=== PATIENT | female | born 1935 | race Two or more races ===

== ENCOUNTER 2020-08-23 11:06 | Inpatient (IN) | payer MEDICARE, MEDICAID ==
[2020-08-23] VITALS (7 sets, daily range): BP systolic 121–148; BP diastolic 46–66
[~2020-08-23] VITALS: Ht 160 cm; Wt 69.8 kg
[~2020-08-23 11:06] MED LIST: ATEN-60 PO; GLYB2.5T8 PO; LISI-275 PO; MECL25CH20 PO; TRAM50TA2 PO
[2020-08-23 11:45] LABS: Basophils # (auto) 0.1 10 ^3/uL (0-0.2); Basophils % (auto) 0.3 % (0.0-2.0); Eosinophils # (auto) 0 10 ^3/uL (0-0.8); Eosinophils % (auto) 0.2 % (0.0-7.0); Hematocrit 20.3 % (36.0-46.0); Lymphocytes % (auto) 9.8 % (10.0-50.0); Mean Corpuscular Hemoglobin 21.6 pg (28.0-32.0); Mean Corpuscular Hgb Conc. 31.2 g/dL (32.0-36.0); Mean Corpuscular Volume 69.3 fL (80.0-100.0); Monocytes # (auto) 1.2 10 ^3/uL (0-1.3); Monocytes % (auto) 5.8 % (0.0-12.0); Neutrophils # (auto) 16.9 10 ^3/uL (1.6-8.6); Neutrophils % (auto) 83.9 % (37.0-80.0); Platelet Count (auto) 189 10^3/uL (140-450); Red Blood Cells 2.93 10^6/uL (4.0-5.20); Red Cell Distribution Width 20.7 % (11.8-14.3); White Blood Cell 20.2 10^3/uL (4.4-10.8)
[2020-08-23 11:56] LABS: Hemoglobin 6.3 g/dL (12.2-16.2)
[2020-08-23 11:57] LABS: Albumin 1.8 g/dL (3.4-5.0); Anion Gap 12 (5-15); Blood Urea Nitrogen 40 mg/dL (7-18); Calcium 9.1 mg/dL (8.5-10.1); Carbon Dioxide 18 mmol/L (21-32); Chloride 105 mmol/L (98-107); Glucose 316 mg/dL (74-106); Potassium 4.5 mmol/L (3.5-5.1); Sodium 135 mmol/L (136-145)
[2020-08-23 12:09] LABS: Alanine Aminotransferase 9 U/L (13-56); Alkaline Phosphatase 98 U/L (45-117); Aspartate Aminotransferase 13 U/L (15-37); BUN/Creatinine Ratio 17.1; Bilirubin, Total 0.9 mg/dL (0.2-1.0); GFR African American 26 mL/min; GFR Non-African American 21 mL/min; Total Protein 7.2 g/dL (6.4-8.2)
[2020-08-23] MEDS ORDERED: SODIUM CHLORIDE 0.9% 1,000 ML IVB ONE (12:30)
[2020-08-23] MEDS ORDERED: cefTRIAXone 1GM/50ML D5W 50 ML IV ONE (12:30)
[2020-08-23] MEDS ORDERED: PANTOPRAZOLE 40 MG/10 ML VIAL INJ IV ONE (12:30)
[2020-08-23 13:47] LABS: Magnesium 1.7 mg/dL (1.6-2.6)
[2020-08-23 13:59] LABS: INR 1.39 (0.9-1.15); Partial Thromboplastin Time 29.3 sec (23.0-31.2)
[2020-08-23] MEDS ORDERED: CLINDAMYCIN 600MG IV 50 ML IV ONE (16:00)
[2020-08-23] MEDS ORDERED: MORPHINE SULF INJ 2 MG/ML SYRINGE 1ML IV PRN ×2 (16:45→17:00)
[2020-08-23] MEDS ORDERED: NITROGLYCERIN 0.4 MG SL TAB SL PRN (16:45)
[2020-08-23] MEDS ORDERED: LACTULOSE 20Gm/30ML SOLN PO PRN (17:00)
[2020-08-23] MEDS ORDERED: ONDANSETRON HCL 4 MG/2 ML VIAL IV PRN (17:00)
[2020-08-23] MEDS ORDERED: DEXTROSE (50%) 50ML SYRG IV PRN (17:00)
[2020-08-23] MEDS ORDERED: PIPERACILLIN-TAZOB 3.375GM 100 ML IV ONE (17:00)
[2020-08-23 17:17] LABS: Urine Bacteria NONE SEEN /hpf (None Seen); Urine Blood TRACE /uL (Negative); Urine Specific Gravity 1.011 (1.001-1.035); Urine WBC 60 /hpf (0 - 5); Urine WBC Clumps PRESENT /hpf (None Seen)
[2020-08-23] MEDS: SODIUM CHLORIDE 0.9% 1,000 ML IV SCH (17:36)
[2020-08-23] MEDS ORDERED: PNEUMOCOCCAL VACC POLYS 25 MCG/0.5 ML VIAL IM ONE (21:15)
[2020-08-23] MEDS ORDERED: PIPERACILLIN-TAZOB 3.375GM 100 ML IV SCH (22:00)
[2020-08-23] MEDS: ACCU-CHEK COMFORT CURVE STRIP VI SCH (22:40)
[2020-08-23] MEDS: InsuLIN REG 1unit/0.01ml Soln (100units/ml) SC SCH (22:47)
[2020-08-23] MEDS: PANTOPRAZOLE 40 MG/10 ML VIAL INJ IV SCH (22:48)
[2020-08-24] VITALS (7 sets, daily range): BP systolic 103–141; BP diastolic 42–70
[2020-08-24] MEDS: CLINDAMYCIN 600MG IV 50 ML IV SCH ×3 (00:25→15:51)
[2020-08-24] MEDS: ACCU-CHEK COMFORT CURVE STRIP VI SCH ×6 (00:25→21:52)
[2020-08-24] MEDS: InsuLIN REG 1unit/0.01ml Soln (100units/ml) SC SCH ×6 (00:36→20:30)
[2020-08-24] MEDS: SODIUM CHLORIDE 0.9% 1,000 ML IV SCH ×2 (04:05→13:00)
[2020-08-24] MEDS: PIPERACILLIN-TAZOB 2.25GM 50 ML IV SCH ×3 (05:28→21:53)
[2020-08-24 06:18] LABS: Neutrophils % (auto) 83.4 % (37.0-80.0)
[2020-08-24 06:19] LABS: Eosinophils # (auto) 0.1 10 ^3/uL (0-0.8); Red Blood Cells 4.09 10^6/uL (4.0-5.20)
[2020-08-24 06:22] LABS: Basophils # (auto) 0.1 10 ^3/uL (0-0.2); Basophils % (auto) 0.4 % (0.0-2.0); Eosinophils % (auto) 0.7 % (0.0-7.0); Hematocrit 30.2 % (36.0-46.0); Lymphocytes # (auto) 1.6 10 ^3/uL (0.4-5.4); Lymphocytes % (auto) 9.7 % (10.0-50.0); Mean Corpuscular Hemoglobin 24.5 pg (28.0-32.0); Mean Corpuscular Hgb Conc. 33.2 g/dL (32.0-36.0); Mean Corpuscular Volume 73.9 fL (80.0-100.0); Monocytes % (auto) 5.8 % (0.0-12.0); Neutrophils # (auto) 13.8 10 ^3/uL (1.6-8.6); Platelet Count (auto) 137 10^3/uL (140-450); White Blood Cell 16.6 10^3/uL (4.4-10.8)
[2020-08-24 06:32] LABS: INR 1.33 (0.9-1.15); Partial Thromboplastin Time 28.3 sec (23.0-31.2)
[2020-08-24 06:33] LABS: Albumin 1.7 g/dL (3.4-5.0); Anion Gap 7 (5-15); Blood Urea Nitrogen 32 mg/dL (7-18); Calcium 8.5 mg/dL (8.5-10.1); Carbon Dioxide 22 mmol/L (21-32); Chloride 112 mmol/L (98-107); Glucose 75 mg/dL (74-106); Potassium 3.8 mmol/L (3.5-5.1); Sodium 141 mmol/L (136-145)
[2020-08-24 06:37] LABS: Red Cell Distribution Width 22.1 % (11.8-14.3)
[2020-08-24 06:45] LABS: Alanine Aminotransferase 10 U/L (13-56); Alkaline Phosphatase 87 U/L (45-117); Aspartate Aminotransferase 18 U/L (15-37); BUN/Creatinine Ratio 17.3; Bilirubin, Total 0.7 mg/dL (0.2-1.0); GFR African American 33 mL/min; GFR Non-African American 28 mL/min; Total Protein 6.6 g/dL (6.4-8.2)
[2020-08-24] MEDS ORDERED: ceFAZolin 1GM VL ONE ×2 (09:08→09:38)
[2020-08-24] MEDS ORDERED: ONDANSETRON HCL 4 MG/2 ML VIAL IV PRN (09:15)
[2020-08-24] MEDS ORDERED: ePHEDrine SULFATE 50 MG/ML AMP IV PRN (09:15)
[2020-08-24] MEDS ORDERED: LABETALOL HCL 5 MG/ML 4ML SYRINGE IV PRN (09:15)
[2020-08-24] MEDS ORDERED: MIDAZOLAM HCL 1MG/1ML-2 ML VIAL IV PRN (09:15)
[2020-08-24] MEDS ORDERED: MORPHINE SULFATE 4 MG/ML SYR/VIAL IV PRN (09:15)
[2020-08-24] MEDS ORDERED: fentaNYL CITRATE 100 MCG/2 ML VL ONE (09:27)
[2020-08-24] MEDS ORDERED: MIDAZOLAM HCL 1MG/1ML-2 ML VIAL ONE (09:27)
[2020-08-24] MEDS ORDERED: DexAMETHasone SOD PHOS 10MG/1ML VIAL INJ ONE (09:33)
[2020-08-24] MEDS ORDERED: PROPOFOL 10 MG/ML 20 ML IV ONE (09:33)
[2020-08-24] MEDS ORDERED: ENOXAPARIN SOD 30 MG/0.3 ML SYRINGE SC SCH (10:00)
[2020-08-24] MEDS: PANTOPRAZOLE 40 MG/10 ML VIAL INJ IV SCH ×2 (10:00→21:53)
[2020-08-24 14:01] LABS: Hematocrit 29.1 % (36.0-46.0); Hemoglobin 9.7 g/dL (12.2-16.2)
[2020-08-25] MEDS: ACCU-CHEK COMFORT CURVE STRIP VI SCH ×7 (04:13→23:57)
[2020-08-25] MEDS: InsuLIN REG 1unit/0.01ml Soln (100units/ml) SC SCH ×6 (04:15→20:54)
[2020-08-25 05:00] VITALS: BP 100/48
[2020-08-25] MEDS: PIPERACILLIN-TAZOB 2.25GM 50 ML IV SCH ×4 (05:43→21:25)
[2020-08-25 07:12] LABS: Basophils # (auto) 0 10 ^3/uL (0-0.2); Eosinophils # (auto) 0 10 ^3/uL (0-0.8); Mean Corpuscular Hemoglobin 24.4 pg (28.0-32.0); Mean Corpuscular Hgb Conc. 32.6 g/dL (32.0-36.0); Monocytes # (auto) 0.3 10 ^3/uL (0-1.3); Neutrophils # (auto) 11.3 10 ^3/uL (1.6-8.6)
[2020-08-25 07:14] LABS: Basophils % (auto) 0.1 % (0.0-2.0); Hematocrit 28.6 % (36.0-46.0); Hemoglobin 9.3 g/dL (12.2-16.2); Lymphocytes # (auto) 1.5 10 ^3/uL (0.4-5.4); Lymphocytes % (auto) 11.4 % (10.0-50.0); Monocytes % (auto) 2.1 % (0.0-12.0); Neutrophils % (auto) 86.4 % (37.0-80.0); Platelet Count (auto) 139 10^3/uL (140-450); Red Blood Cells 3.81 10^6/uL (4.0-5.20); White Blood Cell 13.1 10^3/uL (4.4-10.8)
[2020-08-25 07:16] LABS: Red Cell Distribution Width 22.8 % (11.8-14.3)
[2020-08-25 07:31] LABS: BUN/Creatinine Ratio 22.1; Calcium 8.1 mg/dL (8.5-10.1)
[2020-08-25] MEDS: CLINDAMYCIN 600MG IV 50 ML IV SCH ×3 (08:00→15:36)
[2020-08-25 08:48] VITALS: BP 112/51
[2020-08-25] MEDS: SODIUM CHLORIDE 0.9% 1,000 ML IV SCH ×3 (09:00→18:40)
[2020-08-25] MEDS: PANTOPRAZOLE 40 MG/10 ML VIAL INJ IV SCH ×2 (10:43→21:25)
[2020-08-25] MEDS: MORPHINE SULF INJ 2 MG/ML SYRINGE 1ML IV PRN ×2 (11:57→21:25)
[2020-08-25 13:00] VITALS: BP 119/53
[2020-08-25 16:55] VITALS: BP 132/63
[2020-08-25 22:04] VITALS: BP 146/50
[2020-08-26] MEDS: InsuLIN REG 1unit/0.01ml Soln (100units/ml) SC SCH ×6 (00:08→20:16)
[2020-08-26] MEDS: CLINDAMYCIN 600MG IV 50 ML IV SCH ×2 (00:08→10:33)
[2020-08-26] MEDS: ACCU-CHEK COMFORT CURVE STRIP VI SCH ×5 (04:00→20:14)
[2020-08-26] MEDS: SODIUM CHLORIDE 0.9% 1,000 ML IV SCH ×2 (04:45→13:05)
[2020-08-26] MEDS: PIPERACILLIN-TAZOB 2.25GM 50 ML IV SCH ×3 (05:12→18:38)
[2020-08-26 05:18] VITALS: BP 113/53
[2020-08-26 06:01] LABS: Basophils # (auto) 0 10 ^3/uL (0-0.2); Eosinophils # (auto) 0.1 10 ^3/uL (0-0.8); Eosinophils % (auto) 0.3 % (0.0-7.0); Lymphocytes # (auto) 2.4 10 ^3/uL (0.4-5.4); Monocytes # (auto) 0.6 10 ^3/uL (0-1.3); Nucleated Red Blood Cells % 0.1 %
[2020-08-26 06:04] LABS: Basophils % (auto) 0.3 % (0.0-2.0); Hematocrit 29.4 % (36.0-46.0); Hemoglobin 9.8 g/dL (12.2-16.2); Lymphocytes % (auto) 16.1 % (10.0-50.0); Mean Corpuscular Hemoglobin 24.8 pg (28.0-32.0); Mean Corpuscular Hgb Conc. 33.1 g/dL (32.0-36.0); Monocytes % (auto) 3.9 % (0.0-12.0); Neutrophils % (auto) 79.4 % (37.0-80.0); Platelet Count (auto) 182 10^3/uL (140-450); Red Blood Cells 3.92 10^6/uL (4.0-5.20); White Blood Cell 15.2 10^3/uL (4.4-10.8)
[2020-08-26 06:17] LABS: BUN/Creatinine Ratio 23.9; Calcium 8.1 mg/dL (8.5-10.1); Potassium 3.7 mmol/L (3.5-5.1)
[2020-08-26 09:00] VITALS: BP 156/65
[2020-08-26] MEDS: PANTOPRAZOLE 40 MG/10 ML VIAL INJ IV SCH ×2 (10:33→21:57)
[2020-08-26 13:00] VITALS: BP 152/82
[2020-08-26] MEDS ORDERED: LEVO750T64 PO (14:10)
[2020-08-26] MEDS: MORPHINE SULF INJ 2 MG/ML SYRINGE 1ML IV PRN (14:11)
[2020-08-26 16:59] VITALS: BP 144/64
[2020-08-26 22:17] VITALS: BP 145/65
[2020-08-27] MEDS: ACCU-CHEK COMFORT CURVE STRIP VI SCH ×5 (00:10→16:00)
[2020-08-27] MEDS: PIPERACILLIN-TAZOB 2.25GM 50 ML IV SCH ×2 (00:11→05:30)
[2020-08-27] MEDS: InsuLIN REG 1unit/0.01ml Soln (100units/ml) SC SCH ×5 (00:12→16:00)
[2020-08-27] MEDS: SODIUM CHLORIDE 0.9% 1,000 ML IV SCH ×2 (00:19→10:44)
[2020-08-27 05:04] VITALS: BP 134/75
[2020-08-27 06:41] LABS: Basophils # (auto) 0 10 ^3/uL (0-0.2); Eosinophils # (auto) 0.3 10 ^3/uL (0-0.8); Hematocrit 30.4 % (36.0-46.0); Monocytes # (auto) 0.7 10 ^3/uL (0-1.3); White Blood Cell 11.4 10^3/uL (4.4-10.8)
[2020-08-27 06:43] LABS: Basophils % (auto) 0.3 % (0.0-2.0); Eosinophils % (auto) 2.6 % (0.0-7.0); Lymphocytes # (auto) 2.2 10 ^3/uL (0.4-5.4); Lymphocytes % (auto) 19.1 % (10.0-50.0); Mean Corpuscular Hemoglobin 24.7 pg (28.0-32.0); Mean Corpuscular Hgb Conc. 32.8 g/dL (32.0-36.0); Mean Corpuscular Volume 75.4 fL (80.0-100.0); Monocytes % (auto) 6.2 % (0.0-12.0); Neutrophils # (auto) 8.2 10 ^3/uL (1.6-8.6); Neutrophils % (auto) 71.8 % (37.0-80.0); Nucleated Red Blood Cells % 0.1 %; Platelet Count (auto) 172 10^3/uL (140-450); Red Blood Cells 4.03 10^6/uL (4.0-5.20)
[2020-08-27 06:56] LABS: BUN/Creatinine Ratio 22.2; Calcium 8.1 mg/dL (8.5-10.1); Potassium 3.7 mmol/L (3.5-5.1)
[2020-08-27 08:32] VITALS: BP 139/56
[2020-08-27] MEDS: PANTOPRAZOLE 40 MG/10 ML VIAL INJ IV SCH (09:18)
[2020-08-27] MEDS: MORPHINE SULF INJ 2 MG/ML SYRINGE 1ML IV PRN (09:35)
[2020-08-27 12:19] VITALS: BP 156/66
[2020-08-27 13:55] VITALS: BP 139/56
[2020-08-27] MEDS ORDERED: PIPERACILLIN-TAZOB 2.25GM 50 ML IV SCH (14:00)
== END 2020-08-27 17:10 | disposition home health service (06) | DRG 720 ==
LOC: ER 11:06 → TELE 16:42 → TELE-CENTR 20:00
PROVIDERS: ADMIT Internal Medicine; ATTEND Internal Medicine Pulmonary Disease
PROC: 30230N1 Transfusion of Nonautologous Red Blood Cells into Peripheral Vein, Open Approach (ICD-10-PCS; 2020-08-23)
PROC: 0H98XZZ Drainage of Buttock Skin, External Approach (ICD-10-PCS; principal; 2020-08-24 09:25)
DX: A41.9 Sepsis, unspecified organism (principal); N17.9 Acute kidney failure, unspecified; E44.0 Moderate protein-calorie malnutrition; E11.65 Type 2 diabetes mellitus with hyperglycemia; M32.9 Systemic lupus erythematosus, unspecified; R16.0 Hepatomegaly, not elsewhere classified; D62 Acute posthemorrhagic anemia; L02.31 Cutaneous abscess of buttock; Z20.822 Contact with and (suspected) exposure to COVID-19; E11.9 Type 2 diabetes mellitus without complications; B96.20 Unspecified Escherichia coli [E. coli] as the cause of diseases classified elsewhere; I10 Essential (primary) hypertension; N39.0 Urinary tract infection, site not specified; E66.9 Obesity, unspecified; Z88.6 Allergy status to analgesic agent; Z88.8 Allergy status to other drugs, medicaments and biological substances; Z28.29 Immunization not carried out because of patient decision for other reason; Z90.49 Acquired absence of other specified parts of digestive tract; Z83.3 Family history of diabetes mellitus; Z68.29 Body mass index [BMI] 29.0-29.9, adult; I70.8 Atherosclerosis of other arteries
CPT/HCPCS: 36415; 36430; 71045; 74176; 80048; 80053; 81001; 82270; 82378; 82962; 83036; 83605; 83690; 83735; 84484; 85014; 85018; 85025; 85045; 85610; 85652; 85730; 86141; 86850; 86900; 86901; 86920; 87040; 87070; 87075; 87077; 87086; 87186; 87205; 87426; 93005; 96365; 96375; C9113; G0378; J0690; J0696; J1100; J1815; J2250; J2543; J2704; J3490

== ENCOUNTER 2020-10-08 08:17 | Day surgery (SDC) | payer MEDICARE, MEDICAID ==
[2020-10-06 15:56] LABS: Eosinophils # (auto) 0.1 10 ^3/uL (0-0.8); Eosinophils % (auto) 1.7 % (0.0-7.0); Hemoglobin 10.8 g/dL (12.2-16.2); Monocytes # (auto) 0.4 10 ^3/uL (0-1.3)
[2020-10-06 15:57] LABS: Basophils # (auto) 0 10 ^3/uL (0-0.2); Basophils % (auto) 0.7 % (0.0-2.0); Hematocrit 31.6 % (36.0-46.0); Lymphocytes # (auto) 3.4 10 ^3/uL (0.4-5.4); Lymphocytes % (auto) 44.9 % (10.0-50.0); Mean Corpuscular Hemoglobin 27.4 pg (28.0-32.0); Mean Corpuscular Hgb Conc. 34.1 g/dL (32.0-36.0); Mean Corpuscular Volume 80.3 fL (80.0-100.0); Monocytes % (auto) 5.6 % (0.0-12.0); Neutrophils # (auto) 3.6 10 ^3/uL (1.6-8.6); Neutrophils % (auto) 47.1 % (37.0-80.0); Nucleated Red Blood Cells % 0.1 %; Platelet Count (auto) 73 10^3/uL (140-450); Red Blood Cells 3.94 10^6/uL (4.0-5.20); White Blood Cell 7.6 10^3/uL (4.4-10.8)
[2020-10-06 15:58] LABS: Red Cell Distribution Width 25.3 % (11.8-14.3)
[2020-10-06 16:10] LABS: INR 1.08 (0.9-1.15); Partial Thromboplastin Time 24.9 sec (23.0-31.2)
[~2020-10-08] VITALS: Ht 157.5 cm; Wt 68.0 kg
[~2020-10-08 08:17] MED LIST changes: -ATEN-60 PO; +ATOR20TA PO; +BENA20TA70 PO; -GLYB2.5T8 PO; +LEVO750T64 PO; +LINA5TAB PO; -LISI-275 PO; -MECL25CH20 PO; -TRAM50TA2 PO
[2020-10-08] MEDS ORDERED: SODIUM CHLORIDE LOCK 10 ML ONE (09:05)
[2020-10-08] MEDS ORDERED: LIDOCAINE VISCOUS 2% 15ML UD ONE (09:05)
[2020-10-08] MEDS ORDERED: diphenhdrAMINE HCL 50 MG/1 ML VL ONE (09:05)
[2020-10-08] MEDS: MIDAZOLAM HCL 5 MG/ML-1ML VIAL ONE ×2 (10:12→10:18)
[2020-10-08] MEDS: fentaNYL CITRATE 100 MCG/2 ML VL ONE ×2 (10:12→10:18)
[2020-10-08 11:30] VITALS: BP 134/41
== END 2020-10-08 11:45 | disposition home or self-care (01) ==
LOC: GI 08:17
PROVIDERS: ATTEND Internal Medicine Gastroenterology
DX: K92.1 Melena (principal); K57.30 Diverticulosis of large intestine without perforation or abscess without bleeding; K64.8 Other hemorrhoids; K63.89 Other specified diseases of intestine; Z20.822 Contact with and (suspected) exposure to COVID-19; Z98.890 Other specified postprocedural states; Z79.899 Other long term (current) drug therapy; Z88.6 Allergy status to analgesic agent; Z88.8 Allergy status to other drugs, medicaments and biological substances
CPT/HCPCS: 36415; 43235; 45378; 85025; 85610; 85730; J1200; J2250; J3010; J7030; U0003; 99153; G0500

== ENCOUNTER 2022-03-01 12:03 | Emergency (ER) | payer MEDICARE, MEDICAID ==
[~2022-03-01] VITALS: Ht 167.6 cm; Wt 75.0 kg
[2022-03-01 12:53] VITALS: BP 118/51
[2022-03-01 12:58] LABS: Basophils # (auto) 0.1 10 ^3/uL (0-0.2); Eosinophils # (auto) 0.1 10 ^3/uL (0-0.8); Hemoglobin 10.7 g/dL (12.2-16.2); Mean Corpuscular Volume 80.6 fL (80.0-100.0)
[2022-03-01 13:00] LABS: Basophils % (auto) 0.8 % (0.0-2.0); Eosinophils % (auto) 1.7 % (0.0-7.0); Hematocrit 32.6 % (36.0-46.0); Lymphocytes # (auto) 2.3 10 ^3/uL (0.4-5.4); Lymphocytes % (auto) 26.4 % (10.0-50.0); Mean Corpuscular Hemoglobin 26.4 pg (28.0-32.0); Mean Corpuscular Hgb Conc. 32.8 g/dL (32.0-36.0); Monocytes # (auto) 0.5 10 ^3/uL (0-1.3); Monocytes % (auto) 5.4 % (0.0-12.0); Neutrophils # (auto) 5.6 10 ^3/uL (1.6-8.6); Neutrophils % (auto) 65.7 % (37.0-80.0); Nucleated Red Blood Cells % 0.1 %; Red Blood Cells 4.05 10^6/uL (4.0-5.20); Red Cell Distribution Width 18.5 % (11.8-14.3); White Blood Cell 8.6 10^3/uL (4.4-10.8)
[2022-03-01 13:22] LABS: Albumin 3.4 g/dL (3.4-5.0); Calcium 9.2 mg/dL (8.5-10.1); Potassium 3.6 mmol/L (3.5-5.1)
[2022-03-01 13:26] LABS: Bilirubin, Total 0.6 mg/dL (0.2-1.0); Total Protein 7.3 g/dL (6.4-8.2)
[2022-03-01 14:14] LABS: Urine Bacteria FEW /hpf (None Seen); Urine Blood Negative /uL (Negative); Urine Specific Gravity 1.011 (1.001-1.035); Urine WBC 22 /hpf (0 - 5)
[2022-03-01] MEDS ORDERED: cefTRIAXone 1GM/50ML D5W 50 ML IV ONE (14:45)
== END 2022-03-01 17:34 | disposition left against medical advice (07) ==
LOC: ER 12:03
DX: R42 Dizziness and giddiness (principal); N39.0 Urinary tract infection, site not specified; E11.65 Type 2 diabetes mellitus with hyperglycemia; I10 Essential (primary) hypertension; E78.5 Hyperlipidemia, unspecified; Z86.2 Personal history of diseases of the blood and blood-forming organs and certain disorders involving the immune mechanism; Z90.49 Acquired absence of other specified parts of digestive tract; Z79.899 Other long term (current) drug therapy; Z88.6 Allergy status to analgesic agent; Z88.8 Allergy status to other drugs, medicaments and biological substances
CPT/HCPCS: 36415; 70450; 80053; 81001; 85025; 86850; 86900; 86901; 93005

== ENCOUNTER 2022-10-14 10:26 | Emergency (ER) | payer MEDICARE, MEDICAID ==
[~2022-10-14] VITALS: Ht 162.6 cm; Wt 78.2 kg
[~2022-10-14 10:26] MED LIST changes: +BENA20TA12 PO; -BENA20TA70 PO; +LEVO750T40 PO; -LEVO750T64 PO
[2022-10-14 11:03] LABS: Basophils # (auto) 0.1 10 ^3/uL (0-0.2); Basophils % (auto) 0.7 % (0.0-2.0); Eosinophils # (auto) 0.5 10 ^3/uL (0-0.8); Eosinophils % (auto) 6.8 % (0.0-7.0); Hematocrit 28.7 % (36.0-46.0); Hemoglobin 9.6 g/dL (12.2-16.2); Lymphocytes # (auto) 1.3 10 ^3/uL (0.4-5.4); Lymphocytes % (auto) 17.9 % (10.0-50.0); Mean Corpuscular Hemoglobin 27.4 pg (28.0-32.0); Mean Corpuscular Hgb Conc. 33.5 g/dL (32.0-36.0); Mean Corpuscular Volume 81.7 fL (80.0-100.0); Monocytes # (auto) 0.6 10 ^3/uL (0-1.3); Monocytes % (auto) 8.3 % (0.0-12.0); Neutrophils # (auto) 4.7 10 ^3/uL (1.6-8.6); Neutrophils % (auto) 66.3 % (37.0-80.0); Nucleated Red Blood Cells % 0.1 %; Red Blood Cells 3.51 10^6/uL (4.0-5.20); Red Cell Distribution Width 15.6 % (11.8-14.3); White Blood Cell 7.1 10^3/uL (4.4-10.8)
[2022-10-14 11:35] LABS: Potassium 4.3 mmol/L (3.5-5.1)
[2022-10-14 11:49] LABS: Albumin 3.4 g/dL (3.4-5.0); BUN/Creatinine Ratio 21.9 (10.0-20.0); Bilirubin, Total 0.6 mg/dL (0.2-1.0); Calcium 8.8 mg/dL (8.5-10.1); Total Protein 6.6 g/dL (6.4-8.2)
[2022-10-14 12:26] LABS: Urine Bacteria FEW /hpf (None Seen); Urine Blood Negative /uL (Negative); Urine Specific Gravity 1.013 (1.001-1.035); Urine WBC 46 /hpf (0 - 5)
[2022-10-14] MEDS ORDERED: CEPH250C PO (15:46)
[2022-10-14 16:10] VITALS: BP 123/65
== END 2022-10-14 16:10 | disposition home or self-care (01) ==
LOC: ER 10:26
DX: N39.0 Urinary tract infection, site not specified (principal); N04.9 Nephrotic syndrome with unspecified morphologic changes; R60.9 Edema, unspecified; E11.9 Type 2 diabetes mellitus without complications; I10 Essential (primary) hypertension; Z88.6 Allergy status to analgesic agent; Z88.8 Allergy status to other drugs, medicaments and biological substances; Z79.899 Other long term (current) drug therapy; E78.5 Hyperlipidemia, unspecified; Z90.49 Acquired absence of other specified parts of digestive tract; Z98.890 Other specified postprocedural states
CPT/HCPCS: 36415; 71045; 74176; 80053; 81001; 82150; 83690; 84484; 85025

== ENCOUNTER 2024-03-17 16:33 | Inpatient (IN) | payer MEDICARE, MEDICAID ==
[~2024-03-17] VITALS: Ht 152.4 cm; Wt 75.5 kg
[~2024-03-17 16:33] MED LIST changes: +CEPH250C PO; +FURO40TA4 PO
--- NOTE | 2024-03-17 16:58 | ED.PDOC ---
Musculoskeletal HPI Comments 88y F who presents to the ED via EMS for chief complaint of fall injury. Per EMS, pt lives with family and was using restroom. 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 Pt states just as she stood up, her legs gave out on her and she fell to the ground and scraped her RLE on some tile that was piled up against the bathroom door that had been unevenly laid. Pt had no loss of consciousness and is [id number] which family states is baseline but has noted history of dementia/Alzheimer. EMS states pt has bleeding from RLE and sarah bandage was applied with bleeding controlled prior to ED arrival. EMS states pt had elevated blood pressure of 182/93 prior to ED arrival and Accu check read "HIGH." Pt otherwise is alert and oriented x 3 in the ED. Pt denies any other symptoms at this time. Chief Complaint: Fall Injury Time Seen by MD: 16:54 Primary Care Provider: JASON Emanuel Notes: Nurses Notes, Medications, Allergies Allergies: Coded Allergies: Aspirin (Unverified Allergy, Unknown, 08/23/20) Celecoxib (Verified Adverse Reaction, Severe, WEAKNESS, 04/05/11) Home Meds Active Scripts Cephalexin (KEFLEX CAPSULE) 250 Mg Cp, 1 CAP PO QID, #28 CAP Prov:KEELY LANG MD 10/14/22 Levofloxacin Hemihydrate (LEVOFLOXACIN) 750 Mg Tab, 1 TAB PO DAILY, #10 TAB Prov:EDWIN ZARAGOZA MD 08/26/20 Reported Medications Linagliptin Base (TRADJENTA) 5 Mg Tab, 5 MG PO DAILY, TAB 10/06/20 Atorvastatin Calcium (Lipitor) 20 Mg Tab, 20 MG PO DAILY, TAB 10/06/20 Benazepril & Hydrochlorothiazi (Benazepril Hcl/Hydrochlor) 1 Tab Tab, 1 TAB PO DAILY, TAB 10/06/20 Information Source: Patient, Emergency Med Personnel Mode of Arrival: EMS Brought in by: EMS Location: Right Extremity Location: Leg Timing: Minutes, Hours Prehospital treatment: None Severity: Moderate Able to Move Extremity: No Bear Weight: Limited Pain: Moderate Mechanism: Spontaneous Circumstances: Fall Onset of Symptoms: Spontaneous Symptoms: Swelling, Pain Last Tetanus: Unknown History of: Gout Associated signs and symptoms: Leg pain Past Medical History PAST MEDICAL HISTORY: Anemia, CKF, Dementia, DM, High Lipids, HTN Past Medical History (Other): gout Surgical History: Cholecystectomy, Hernia Repair ZOOLOGY PROFESSOR History: Denies all ZOOLOGY PROFESSOR Hx Family History Family History: Reviewed,noncontributory to illness Social History Smoker: Non-Smoker Alcohol: Denies ETOH Use Drugs: Denies Drug Use Lives In: Home Constitutional: denies: chills, diaphoresis, fatigue, fever, malaise, sweats, weakness, others EENTM: denies: blurred vision, double vision, ear bleeding, ear discharge, ear drainage, ear pain, ear ringing, eye pain, eye redness, hearing loss, mouth pain, mouth swelling, nasal discharge, nose bleeding, nose congestion, nose pain, photophobia, tearing, throat pain, throat swelling, voice changes, others Respiratory: denies: cough, hemoptysis, orthopnea, SOB at rest, shortness of breath, SOB with excertion, stridor, wheezing, others Cardiovascular: denies: chest pain, dizzy spells, diaphoresis, Dyspnea on exertion, edema, irregular heart beat, left arm pain, lightheadedness, palpitations, PND, syncope, others Gastrointestinal: denies: abdomen distended, abdominal pain, blood streaked bowels, constipated, diarrhea, dysphagia, difficulty swallowing, hematemesis, melena, nausea, poor appetite, poor fluid intake, rectal bleeding, rectal pain, vomiting, others Genitourinary: denies: abnormal vagina bleeding, burning, dyspareunia, dysuria, flank pain, frequency, hematuria, incontinence, pain, , vagina discharge, urgency, others Neurological: denies: dizziness, fainting, headache, left sided numbness, left sided weakness, numbness, paresthesia, pre-existing deficit, right sided numbness, right sided weakness, seizure, speech problems, tingling, tremors, weakness, others Musculoskeletal: denies: back pain, gout, joint pain, joint swelling, muscle pain, muscle stiffness, neck pain, others Integumetry: reports: laceration (RLE); denies: bruises, change in color, change in hair/nails, dryness, lesions, lumps, rash, wounds, others Allergic/Immunocompromised: denies: Difficulty Healing, Frequent Infections, Hives, Itching, others Hematologic/Lymphatic: denies: anemia, blood clots, easy bleeding, easy bruising, swollen glands, others Endocrine: denies: excessive hunger, excessive sweating, excessive thirst, excessive urination, flushing, intolerance to cold, intolerance to heat, unexplained weight gain, unexplained weight loss, others Psychiatric: denies: anxiety, bipolar disorder, depression, hopeless, panic disorder, schizophrenia, sleepless, suicidal, others All Other Systems: Reviewed and Negative Physical Exam General Appearance: Moderate Distress, Obese HEENT: Normal ENT Inspection, Pharynx Normal, TMs Normal Neck: Full Range of Motion, Non-Tender, Normal, Normal Inspection Respiratory: Chest Non-Tender, Lungs Clear, No Accessory Muscle Use, No Respiratory Distress, Normal Breath Sounds Cardiovascular: No Edema, No JVD, No Murmur, No Gallop, Normal Peripheral Pulses, Regular Rate/Rhythm Breast Exam: Deferred Gastrointestinal: No Organomegaly, Non Tender, No Pulsatile Mass, Normal Bowel Sounds, Soft Genitalia: Deferred Pelvic: Deferred Rectal: Deferred Extremities: No calf tenderness, Normal capillary refill, No pedal edema Musculoskeletal : Apperance: Normal Neurologic: crab butcher II-XII nml as Tested, Motor Weakness, Normal Affect, Normal Mood, No Sensory Deficits Cerebellar Function: Normal Reflexes: Normal Skin: Dry, Lacerations (Two 6 cm lacerations on the right leg to the anterior tib-fib region), Normal Color, Warm Lymphatic: No Adenopathy Was a procedure done? Was a procedure done?: Yes Sedation Sedation?: No Laceration Repair : Location Right anterior tib-fib region Length A total of 12 cm laceration divided into two separate lacerations Anesthetic: Lidocaine, With epi Laceration Repair Prep: Saline Laceration Repair Wound Comple: epidermis/dermis repair, layered repair (Two layer closure) Laceration Repair: Number of sutures (A total of 18 sutures), Layers Closed (Two layers), Size (4-0 Ethilon), Nylon, Vicryl (4-0 Vicryl), Simple, Bacitracin, Non-adherent gauze Informed consent obtained: No Risks, benefits, and alternati: No Differential Diagnosis EXT Differential Diagnosis: Fracture, Sprain, Dislocation, Laceration, Gout, DJD, C ontusion, Strain, Rheumatoid, Arthritis X-Ray, Labs, Meds, VS Vital Signs Date Time Temp Pulse Resp B/P (MAP) Pulse Ox O2 Delivery O2 Flow Rate FiO2 11/3/24 20:26 101 18 99 Room Air* 0 21 03/17/24 20:25 101 18 159/94 (115) 99 03/17/24 20:00 97 03/17/24 19:12 91 03/17/24 18:55 107 21 174/69 (104) 99 03/17/24 18:55 107 21 99 Room Air* 0 21 03/17/24 16:48 98.7 103 16 188/93 (124) 99 Lab Test 03/17/24 17:27 Range/Units White Blood Count 8.9 4.4-10.8 10^3/uL Red Blood Count 3.80 L 4.0-5.20 10^6/uL Hemoglobin 11.7 L 12.2-16.2 g/dL Hematocrit 35.6 L 36.0-46.0 % Mean Corpuscular Volume 93.7 80.0-100.0 fL Mean Corpuscular Hemoglobin 30.9 28.0-32.0 pg Mean Corpuscular Hemoglobin Concent 33.0 32.0-36.0 g/dL Red Cell Distribution Width 15.7 H 11.8-14.3 % Platelet Count 124 L 140-450 10^3/uL Mean Platelet Volume 9.4 6.9-10.8 fL Neutrophils (%) (Auto) 86.6 H 37.0-80.0 % Lymphocytes (%) (Auto) 8.4 L 10.0-50.0 % Monocytes (%) (Auto) 4.2 0.0-12.0 % Eosinophils (%) (Auto) 0.5 0.0-7.0 % Basophils (%) (Auto) 0.3 0.0-2.0 % Neutrophils # (Auto) 7.7 1.6-8.6 10 ^3/uL Lymphocytes # (Auto) 0.7 0.4-5.4 10 ^3/uL Monocytes # (Auto) 0.4 0-1.3 10 ^3/uL Eosinophils # (Auto) 0 0-0.8 10 ^3/uL Basophils # (Auto) 0 0-0.2 10 ^3/uL Nucleated Red Blood Cells 0.0 % Sodium Level 135 L 136-145 mmol/L Potassium Level 4.5 3.5-5.1 mmol/L Chloride Level 106 98-107 mmol/L Carbon Dioxide Level 19 L 20-31 mmol/L Anion Gap 10 5-15 Blood Urea Nitrogen 39 H 9-23 mg/dL Creatinine 2.52 H 0.550-1.02 mg/dL Glomerular Filtration Rate Calc 18 >90 mL/min BUN/Creatinine Ratio 15.5 10.0-20.0 Serum Glucose 695 *H 74-106 mg/dL Calcium Level 8.9 8.7-10.4 mg/dL Beta-Hydroxybutyric Acid 0.186 < 0.4 mmol/L Current Medications Medications (Trade) Dose Ordered Sig/Francoise Route Start Time Stop Time Status Last Admin Sodium Chloride 500 ml @ 500 mls/hr Q1H ONCE IV 03/17/24 17:00 03/17/24 17:59 DC 03/17/24 17:38 Insulin Human Regular (InsuLIN R) 5 units ONCE ONCE IV 03/17/24 17:00 03/17/24 17:01 DC 03/17/24 17:38 Cefazolin Sodium 50 ml @ 100 mls/hr ONCE ONCE IV 03/17/24 20:30 03/17/24 20:59 DC 03/17/24 20:47 Bacitracin 5 applic ONCE ONCE TOP 03/17/24 20:45 03/17/24 20:46 DC 03/17/24 20:47 The CBC is within normal limits The chemistry panel shows a BUN of 39 and creatinine of 2.52 The patient was glucose is 695 The patient had an IV Hep-Lock established in the patient was given 500 cc bolus of normal saline The patient was given regular insulin 5 units IV push Because of the patient's deep wounds as well as a history of diabetes, the patient was started on Ancef g IV piggyback Bacitracin was placed to the area and the patient is dressed in nonadherent dressings. The patient was being admitted at this time. Time of 1ST Reevaluation: 17:30 Reevaluation 1ST: Unchanged Patient Education/Counseling: Diagnosis, Treatment, Prognosis Family Education/Counseling: No Family Present Departure 1 Departure Time of Disposition: 21:05 Impression: Primary Impression: Hyperglycemia Additional Impressions: Laceration of right lower leg Qualified Codes: S81.811A - Laceration without foreign body, right lower leg, initial encounter History of fall Generalized weakness Disposition: ADMITTED INPATIENT Admit to: Med Surg Condition: Fair Critical Care Note Critical Care Time?: No Stability Stability form required: Yes Unstable for transfer: Telemetry monitoring (Telemetry monitoring required), ED Physician Assesment (Clinical assesment) Heart Score Heart Score: Heart Score Response (Comments) Value History N/A 0 EKG N/A 0 Age N/A 0 Risk Factors N/A 0 Troponin N/A 0 Total 0 I personally scribed for DAYNE LILLY MD ([email or web address]) on 03/17/24 at 16:58. Electronically submitted by Abdias White ([email or web address]). DAYNE LILLY MD Mar 17, 2024 16:58
[2024-03-17] MEDS: InsuLIN REG 1unit/0.01ml Soln (100units/ml) IV ONE (17:38)
[2024-03-17] MEDS: SODIUM CHLORIDE 0.9% 500 ML IV ONE (17:38)
[2024-03-17 17:45] LABS: Basophils # (auto) 0 10 ^3/uL (0-0.2); Basophils % (auto) 0.3 % (0.0-2.0); Eosinophils # (auto) 0 10 ^3/uL (0-0.8); Eosinophils % (auto) 0.5 % (0.0-7.0); Hematocrit 35.6 % (36.0-46.0); Hemoglobin 11.7 g/dL (12.2-16.2); Lymphocytes # (auto) 0.7 10 ^3/uL (0.4-5.4); Lymphocytes % (auto) 8.4 % (10.0-50.0); Mean Corpuscular Hemoglobin 30.9 pg (28.0-32.0); Mean Corpuscular Volume 93.7 fL (80.0-100.0); Monocytes # (auto) 0.4 10 ^3/uL (0-1.3); Monocytes % (auto) 4.2 % (0.0-12.0); Neutrophils # (auto) 7.7 10 ^3/uL (1.6-8.6); Neutrophils % (auto) 86.6 % (37.0-80.0); Platelet Count (auto) 124 10^3/uL (140-450); Red Cell Distribution Width 15.7 % (11.8-14.3); White Blood Cell 8.9 10^3/uL (4.4-10.8)
[2024-03-17 17:53] LABS: Chloride 106 mmol/L (98-107); Potassium 4.5 mmol/L (3.5-5.1); Sodium 135 mmol/L (136-145)
[2024-03-17 17:54] LABS: Anion Gap 10 (5-15); Calcium 8.9 mg/dL (8.7-10.4); Carbon Dioxide 19 mmol/L (20-31)
[2024-03-17 17:59] LABS: BUN/Creatinine Ratio 15.5 (10.0-20.0); Blood Urea Nitrogen 39 mg/dL (9-23)
[2024-03-17 18:04] LABS: Glucose 695 mg/dL (74-106)
[2024-03-17 18:55] VITALS: PULSE 107; RESP 21; O2SAT 99
[2024-03-17] MEDS: LIDOCAINE 1% (LOCAL ANESTH.) PF 5ml SDV ID ONE (19:46)
[2024-03-17] MEDS: LIDOCAINE W/ EPINEPHRINE 1% 20ML VIAL ONE (20:18)
[2024-03-17 20:26] VITALS: PULSE 101; RESP 18; O2SAT 99
[2024-03-17] MEDS: ceFAZolin 1GM/50ML 50 ML IV ONE (20:47)
[2024-03-17] MEDS: BACITRACIN TOP OINT 1 UD PKG TOP ONE (20:47)
[2024-03-17] MEDS ORDERED: ACETAMINOPHEN 325 MG TAB PO PRN (21:45)
[2024-03-17] MEDS ORDERED: MORPHINE SULFATE INJ 2 MG/ml SYRG IV PRN (21:45)
[2024-03-17] MEDS ORDERED: NITROGLYCERIN 0.4 MG SL TAB SL PRN (21:45)
[2024-03-17] MEDS ORDERED: DEXTROSE (50%) 50ML SYRG IV PRN (21:45)
[2024-03-17] MEDS ORDERED: ONDANSETRON HCL 4 MG/2 ML VIAL IV PRN (21:45)
--- NOTE | 2024-03-17 21:55 | DVHHPRES ---
History of Present Illness Resident Creating Document: LEONEL MCHUGH RESIDENT History of Present Illness This is a 88-year-old female with past medical history of hypertension, thrombocytopenia, hyperlipidemia, type 2 diabetes melitus, essential tremor on the right hand, wanted the the ED with a chief complaint of status post mechanical fall. And is accompanied with her daughter and according to the daughter she mentioned patient got up from the rest room using a wall as she stood up her leg gave out of her and she fell to the ground without any trauma to the head or lose of consciousness but has bleeding from right lower extremity and sarah bandage was applied with bleeding controlled prior to ED. A total of 12 cm laceration divided into two separate lacerations and a total of 18 suture is required to close the wound in 2 layers. Patient also complaining of bilateral leg swelling and tingling and numbness for last six-month and getting worse that prompted this visit. On admission patient's blood pressure was 182/93 and Blood sugar was 695. The patient denies chest pain, shortness of breath, cough, dizziness, diaphoresis, abdominal pain, nausea, vomiting or any change in bowel and bladder habit. Past Medical History Hypertension, thrombocytopenia, hyperlipidemia, essential tremor, type 2 vianey betes mellitus, peripheral neuropathy Past Surgical History Hernia surgery Family History: None Smoke: No ALCOHOL: none Drugs: None Lives: with Family Review of Systems Constitutional: Yes: Weakness; No: Fever, Chills, Sweats, Malaise, Other Eyes: No: Pain, Vision change, Conjunctivae inflammation, Eyelid inflammation, Other, Redness ENT: No: Ear pain, Ear discharge, Nose pain, Nose discharge, Nose congestion, Mouth pain, Mouth swelling, Throat pain, Throat swelling, Other Respiratory: No: Cough, Dry, Shortness of breath, SOB with excertion, Wheezing, Hemoptysis, Pleuritic Pain, Sputum, Wheezing, Other Cardiovascular: No: Chest Pain, Palpitations, Orthopnea, Paroxysmal Noc. Dyspnea, Edema, Lt Headedness, Other Gastrointestinal: No: Nausea, Vomiting, Abdominal Pain, Diarrhea, Constipation, Melena, Hematochezia, Other Genitourinary: Dysuria; No Frequency, No Incontinence, No Hematuria, No Retention, No Other Musculoskeletal: leg pain, foot pain; No: other, neck pain, shoulder pain, arm pain, back pain, hand pain Skin: No: Rash, Lesions, Jaundice, Bruising, Other Neurological: No: Weakness, Numbness, Incoordination, Change in speech, Confusion, Seizures, Other Allergies: Coded Allergies: Aspirin (Unverified Allergy, Unknown, 08/23/20) Celecoxib (Verified Adverse Reaction, Severe, WEAKNESS, 04/05/11) Medications Current Medications Medications Dose Ordered Sig/Francoise Route Start Time Stop Time Status Last Admin Dose Admin Sodium Chloride 10 ml Q8HR IV 03/17/24 22:00 Acetaminophen 325 mg Q4HP PRN PO 03/17/24 21:45 Acetaminophen/ Hydrocodone Bitart 1 tab Q4HP PRN PO 03/17/24 21:45 Ondansetron HCl 4 mg Q4HP PRN IV 03/17/24 21:45 Nitroglycerin 0.4 mg Q5MINP PRN SL 03/17/24 21:45 Morphine Sulfate 2 mg Q30M PRN IV 03/17/24 21:45 Diagnostic Test (Pha) 1 strip ACHS 03/17/24 22:00 Insulin Human Regular AC SC 03/18/24 07:00 Insulin Human Regular HS SC 03/17/24 22:00 Dextrose 50 ml UD PRN IV 03/17/24 21:45 Insulin Glargine 25 units QAM SC 03/18/24 07:00 Exam Vital Signs Vital Signs Date Time Temp Pulse Resp B/P (MAP) Pulse Ox O2 Delivery O2 Flow Rate FiO2 03/17/24 20:26 101 18 99 Room Air* 0 21 03/17/24 20:25 159/94 (115) 03/17/24 16:48 98.7 Exam Physical examination: General Appearance: Alert, Oriented X3, Cooperative, No acute distress HEENT: Atraumatic, PERRLA, EOMI, Mucous membrane moist/pink Respiratory: Clear to auscultation, Normal air movement Cardiovascular: Regular rate, Normal S1, Normal S2, No murmurs, no chest wall tenderness Abdominal: Normal bowel sounds, Soft, No tenderness, No hepatospenomegaly, No masses Extremities: Bilateral pedal edema 2+, big wound in the right lower extremity that required 18 stitches close the wound, few bruises bilaterally, No clubbing, No cyanosis, Normal pulses. Skin: No rashes, No breakdown, No significant lesion Neuro: Using walker, Normal speech, Strength at 5/5 X4 ext, Normal tone, Sensation intact, Psych/Mental Status: Mental status NL, Mood NL Labs/Xrays Labs Test 03/17/24 17:27 Range/Units White Blood Count 8.9 4.4-10.8 10^3/uL Red Blood Count 3.80 L 4.0-5.20 10^6/uL Hemoglobin 11.7 L 12.2-16.2 g/dL Hematocrit 35.6 L 36.0-46.0 % Mean Corpuscular Volume 93.7 80.0-100.0 fL Mean Corpuscular Hemoglobin 30.9 28.0-32.0 pg Mean Corpuscular Hemoglobin Concent 33.0 32.0-36.0 g/dL Red Cell Distribution Width 15.7 H 11.8-14.3 % Platelet Count 124 L 140-450 10^3/uL Mean Platelet Volume 9.4 6.9-10.8 fL Neutrophils (%) (Auto) 86.6 H 37.0-80.0 % Lymphocytes (%) (Auto) 8.4 L 10.0-50.0 % Monocytes (%) (Auto) 4.2 0.0-12.0 % Eosinophils (%) (Auto) 0.5 0.0-7.0 % Basophils (%) (Auto) 0.3 0.0-2.0 % Neutrophils # (Auto) 7.7 1.6-8.6 10 ^3/uL Lymphocytes # (Auto) 0.7 0.4-5.4 10 ^3/uL Monocytes # (Auto) 0.4 0-1.3 10 ^3/uL Eosinophils # (Auto) 0 0-0.8 10 ^3/uL Basophils # (Auto) 0 0-0.2 10 ^3/uL Nucleated Red Blood Cells 0.0 % Sodium Level 135 L 136-145 mmol/L Potassium Level 4.5 3.5-5.1 mmol/L Chloride Level 106 98-107 mmol/L Carbon Dioxide Level 19 L 20-31 mmol/L Anion Gap 10 5-15 Blood Urea Nitrogen 39 H 9-23 mg/dL Creatinine 2.52 H 0.550-1.02 mg/dL Glomerular Filtration Rate Calc 18 >90 mL/min BUN/Creatinine Ratio 15.5 10.0-20.0 Serum Glucose 695 *H 74-106 mg/dL Calcium Level 8.9 8.7-10.4 mg/dL Beta-Hydroxybutyric Acid 0.186 < 0.4 mmol/L Assessment/Plan Assessment/Plan Assessment and plan: # S/P mechanical fall without trauma to the head or loss of consciousness - Bleeding from right lower extremity and required 18 stiches to close the wound in 2 layers. - Ordered CT scan of the head without contrast, echo, TSH, B12 - Fall precaution in place - physical therapy # Erythema and swelling of the lower extremity, rule out DVT/cellulitis - Doppler scan of the lower limb excluded the possibility of the DVT - Ordered CT scan of the lower extremity. # Possible CHF rule out - Ordered chest x-ray and BNP # Acute complicated cystitis - UA is consistent with UTI - IV ceftriaxone 1 g daily - Ordered urine C/S # Uncontrolled type 2 diabetes mellitus - On admission blood sugar was 695 with normal anion gap - Started Lantus 25 units q.a.m. and aggressive sliding scale of insulin # Possible CKD stage 4 - U/S of the kidney - Strict I&O - Avoid nephrotoxic medication - Consulted nephrology # DVT prophylaxis - SCD Goal of care discussed with the patient for more than 20 minutes full code Plan of treatment discussed with Dr. Suarez Plan discussed with: Patient, Other My Orders Orders - LEONEL MCHUGH RESIDENT Procedure Category Date Status Time Admit ADMIT 03/17/24 Transmitted 21:37 Allergies GRACE 03/17/24 In Process 21:37 Code Status CODE 03/17/24 Transmitted 21:37 Sodium Chloride Lock PHA 03/17/24 In Process (Saline Lock Ns) 22:00 Oxygen Per Hour RT 03/17/24 Transmitted 21:37 Acetaminophen Tablet PHA 03/17/24 In Process (Tylenol Tablet) 21:45 Hydrocodone-Acet PHA 03/17/24 In Process 5/325mg Tab ([place] 21:45 Ondansetron Hcl PHA 03/17/24 In Process (Zofran) 21:45 Fall Risk Precautions GRACE 03/17/[address] 21:37 Pt Request For Service PT 03/17/24 Logged 21:37 Echo 2d Mode Cardiac US 03/17/24 Logged DOP 21:37 Nitroglycerin PHA 03/17/24 In Process Sublingual (Ntrostat 21:45 Morphine Sulfate PHA 03/17/24 In Process Injection 21:45 Oxygen By Nasal RT 03/17/24 Transmitted Cannula 21:37 Stat Ekg For Chest GRACE 03/17/24 In Process Pain 21:37 Notify Of Changes GRACE 03/17/24 In Process From Base 21:37 Esol Teacher Assistant For GRACE 03/17/24 In Process 24 Hours 21:37 Emergency Dysrhythmia GRACE 03/17/24 In Process Protocol 21:37 Rhythm Strips Once GRACE 03/17/24 In Process Every Shift 21:37 Bilat Lower Dvt US 03/17/24 Logged 21:37 Glucose Blood PHA 03/17/24 In Process (Accu-Chek Comfort 22:00 Insulin R (Human) PHA 03/18/24 In Process (Insulin R) 07:00 Insulin R (Human) PHA 03/17/24 In Process (Insulin R) 22:00 Dextrose 50% Syringe PHA 03/17/24 In Process 21:45 Insulin Lantus PHA 03/18/24 In Process (Glargine) (Lantus) 07:00 Urinalysis LAB 03/17/24 Logged 21:52 Hemoglobin A1c LAB 03/17/24 Transmitted 21:53 Thyroid Stimulating LAB 03/17/24 Transmitted Hormone 21:53 Vitamin B12 LAB 03/17/24 Transmitted 21:53 Vitamin D, 25-Hydroxy LAB 03/17/24 Transmitted 21:53 Chest Portable XY 03/17/24 Logged 21:53 B-Type Natriuretic LAB 03/17/24 Transmitted Peptide 21:53 Date of Service: Mar 17, 2024 Billing Provider: DOMINICK SUAREZ MD Common Visit Codes: [id number] INP/OBS CARE (HIGH) Secondary Visit Codes: [id number] CARE PLAN 30 MINUTES LEONEL MCHUGH RESIDENT Mar 17, 2024 21:55 DOMINICK SUAREZ MD Mar 19, 2024 09:29
[2024-03-17] MEDS: SODIUM CHLOR 0.9% PF (SALINE LOCK) 10ML VIAL/SYR IV SCH (21:56)
[2024-03-17] MEDS: ACCU-CHEK COMFORT CURVE STRIP VI SCH (22:03)
[2024-03-17] MEDS: InsuLIN REG 1unit/0.01ml Soln (100units/ml) SC SCH (22:07)
--- NOTE | 2024-03-17 22:30 | DVH ---
Bilateral lower extremity venous duplex Clinical History: To rule out DVT Comparison: None Technique: Duplex Doppler evaluation of the deep venous systems of both lower extremities from the common femora l veins to the popliteal veins including color Doppler and spectral/pulsed waveform analysis was perf ormed. Findings: RIGHT SIDE: The common femoral vein demonstrates appropriate compressibility and waveform variability. There is compressibility/patency of the great saphenous vein at the proximal thigh. The femoral vein demonstrates appropriate compressibility and waveform variability. The deep femoral vein demonstrates appropriate compressibility and waveform variability. The popliteal vein demonstrates appropriate compressibility and waveform variability. There is normal compressibility at the tibioperoneal trunk. LEFT SIDE: The common femoral vein demonstrates appropriate compressibility and waveform variability. There is compressibility/patency of the great saphenous vein at the proximal thigh. The femoral vein demonstrates appropriate compressibility and waveform variability. The deep femoral vein demonstrates appropriate compressibility and waveform variability. The popliteal vein demonstrates appropriate compressibility and waveform variability. There is normal compressibility at the tibioperoneal trunk. Impression: No right or left femoropopliteal venous thrombosis.
[2024-03-17 23:21] LABS: Urine Bacteria FEW /hpf (None Seen); Urine Blood 2+ /uL (Negative); Urine Clarity Turbid (Clear); Urine Color Light-Yellow (Yellow); Urine Protein, UAD 3+ (Negative); Urine Specific Gravity 1.021 (1.001-1.035); Urine Urobilinogen Normal (Negative); Urine WBC 97 /hpf (0 - 5)
--- NOTE | 2024-03-18 04:08 | DVH ---
INDICATION: Possible CKD. TECHNIQUE: Multiple real-time sonographic images of the kidneys and urinary bladder were obtained. COMPARISON: CT scan of the abdomen pelvis dated 10/14/2022 FINDINGS: The right kidney measures 9.7 cm in length. The right renal echotexture, contour and cortical thickn ess are within normal limits. No hydronephrosis or large masses/calculi are seen. Mild perinephric fr ee fluid. The left kidney measures 8.3 cm in length. The kidney is echogenic. No hydronephrosis or large [place] s/calculi are seen. There is a cyst in the lower pole measuring 2.2 x 2.7 x 2.4 cm. No echogenic intraluminal masses are seen in the bladder. No urinary bladder wall abnormality. Bilat eral ureteral jets are not visualized Prevoid residual measures 92.6 cc. IMPRESSION: 1. Left renal atrophy and echogenic kidney may reflect medical renal disease. No hydronephrosis. Left renal cyst measuring 2.7 cm. 2. Mild right perinephric free fluid of uncertain etiology. No right hydronephrosis. 3. Grossly unremarkable urinary bladder.
--- NOTE | 2024-03-18 06:09 | DVH ---
CHEST RADIOGRAPH Indication:chest pain Technique: Single frontal view of the chest was obtained Comparison: XY CHEST PORTABLE on DOS: 10/14/22 FINDINGS: Lines and Tubes: None Lungs: There is pulmonary congestion. Pleura: No effusion. No pneumothorax. Cardiomediastinal contours: Unremarkable Bones: No acute osseous abnormality. IMPRESSION: 1. Pulmonary congestion.
[2024-03-18] MEDS: INSULIN LANTUS (GLARGINE) 1 /0.01ml (100units/ml) SC SCH (07:00)
[2024-03-18] MEDS: InsuLIN REG 1unit/0.01ml Soln (100units/ml) SC SCH (07:02)
--- NOTE | 2024-03-18 07:28 | DVH ---
EXAM: CT HEAD WITHOUT CONTRAST HISTORY: s/p mechanical fall COMPARISON: HEAD WITHOUT CONTRAST on DOS: 03/01/22 TECHNIQUE: Axial images were obtained and reformatted in coronal and sagittal planes. All CT scans at this medical facility are performed using dose modulation techniques as appropriate t o a performed exam including the following: Automated exposure control was utilized; adjustment of th e MA and/or KV according to patient size; and use of iterative reconstruction technique. CT Dose: CTDI volume is 55.84 mGy. Dose-length product is 988.72 mGy*cm FINDINGS: There is no evidence of acute intracranial hemorrhage, mass, mass effect midline shift. There is no h ydrocephalus or extra-axial fluid collection. There is age concordant parenchymal atrophy. There are patchy chronic small-vessel ischemic changes in the supratentorial white matter. Barcenas-white matter di fferentiation appears maintained. The visualized paranasal sinuses and mastoid air cells are clear. The calvarium is intact. IMPRESSION: 1. No acute intracranial process. HS:Y
[2024-03-18 08:16] VITALS: PULSE 86; RESP 14; O2SAT 98
[2024-03-18 09:05] LABS: Basophils # (auto) 0.1 10 ^3/uL (0-0.2); Basophils % (auto) 0.7 % (0.0-2.0); Eosinophils # (auto) 0.1 10 ^3/uL (0-0.8); Eosinophils % (auto) 0.7 % (0.0-7.0); Hematocrit 28.9 % (36.0-46.0); Hemoglobin 9.6 g/dL (12.2-16.2); Lymphocytes # (auto) 1.6 10 ^3/uL (0.4-5.4); Lymphocytes % (auto) 18.5 % (10.0-50.0); Mean Corpuscular Hemoglobin 30.9 pg (28.0-32.0); Mean Corpuscular Hgb Conc. 33.3 g/dL (32.0-36.0); Mean Corpuscular Volume 92.9 fL (80.0-100.0); Monocytes # (auto) 0.8 10 ^3/uL (0-1.3); Monocytes % (auto) 8.9 % (0.0-12.0); Neutrophils # (auto) 6.3 10 ^3/uL (1.6-8.6); Neutrophils % (auto) 71.2 % (37.0-80.0); Nucleated Red Blood Cells % 0.1 %; Platelet Count (auto) 104 10^3/uL (140-450); Red Blood Cells 3.11 10^6/uL (4.0-5.20); Red Cell Distribution Width 15.3 % (11.8-14.3); White Blood Cell 8.9 10^3/uL (4.4-10.8)
[2024-03-18] MEDS: cefTRIAXone 1GM/50ML D5W 50 ML IV SCH (09:09)
[2024-03-18 09:15] LABS: Alanine Aminotransferase 27 U/L (7-40); Albumin 2.9 g/dL (3.2-4.8); Alkaline Phosphatase 116 U/L (46-116); Anion Gap 10 (5-15); Aspartate Aminotransferase 33 U/L (13-40); BUN/Creatinine Ratio 15.5 (10.0-20.0); Blood Urea Nitrogen 36 mg/dL (9-23); Calcium 8.9 mg/dL (8.7-10.4); Carbon Dioxide 20 mmol/L (20-31); Chloride 112 mmol/L (98-107); Glucose 274 mg/dL (74-106); Potassium 4.1 mmol/L (3.5-5.1); Sodium 142 mmol/L (136-145)
[2024-03-18 09:16] LABS: Bilirubin, Total 0.5 mg/dL (0.2-1.0); Phosphorus 2.6 mg/dL (2.4-5.1); Total Protein 4.8 g/dL (5.7-8.2)
[2024-03-18 09:29] LABS: Creatinine, Urine 44.48 mg/dL (30.0-125.0)
[2024-03-18 09:31] LABS: Creatinine, Urine 44.71 mg/dL (30.0-125.0)
[2024-03-18 09:32] LABS: Protein, Urine 359.5 mg/dL (1-14); Urine Protein/Creatinine Ratio 8.08
--- NOTE | 2024-03-18 11:47 | DVHCONRES ---
Date Seen: Mar 18, 2024 Resident Creating Document: JHAJJ,SARPUNEET RESIDENT Referring Physician MD Cassandra Reason for Consultation Possible CKD stage 4 History of Present Illness Patient is a 88-year-old female with a past medical history of hypertension, type 2 diabetes mellitus, chronic kidney disease, peripheral neuropathy was brought to the hospital after she was reported to fall in the restroom. Daughter reported that she was in the restroom and when she tried to stand up her leg gave out and she fell to the ground without hitting her head, no loss of consciousness but had bleeding from the right lower extremity. To laceration was noted on the right edwards which was sutured. Patient reported bilateral lower limb numbness and tingling with the last 6 months which has gotten worse over time. On admission patient's blood pressure 182/93 mmHg, blood sugar 695 mg/dl. Patient denied chest pain, shortness of breath, dizziness, diaphoresis, abdominal pain, nausea, vomiting, change in bowel bladder habits. Bilateral lower extremity Venous duplex showed no right or left femoropopliteal vein thrombosis. Chest x-ray shows pulmonary venous congestion and interstitial edema with suspected left sided pleural effusion Head CT without contrast showed no acute intracranial process Past Medical History hypertension, type 2 diabetes mellitus, chronic kidney disease, peripheral neur opathy Past Surgical History Hernia surgery Family History: Cardiovascular disease G8 MOTHER Diabetes mellitus G8 MOTHER G8 FATHER Social History Patient lives with family and denies smoking, alcohol, drug use Allergies: Coded Allergies: Aspirin (Unverified Allergy, Unknown, 08/23/20) Celecoxib (Verified Adverse Reaction, Severe, WEAKNESS, 04/05/11) Home Meds Active Scripts Cephalexin (KEFLEX CAPSULE) 250 Mg Cp, 1 CAP PO QID, #28 CAP Prov:KEELY LANG MD 10/14/22 Levofloxacin Hemihydrate (LEVOFLOXACIN) 750 Mg Tab, 1 TAB PO DAILY, #10 TAB Prov:EDWIN ZARAGOZA MD 08/26/20 Reported Medications Linagliptin Base (TRADJENTA) 5 Mg Tab, 5 MG PO DAILY, TAB 10/06/20 Atorvastatin Calcium (Lipitor) 20 Mg Tab, 20 MG PO DAILY, TAB 10/06/20 Benazepril & Hydrochlorothiazi (Benazepril Hcl/Hydrochlor) 1 Tab Tab, 1 TAB PO DAILY, TAB 10/06/20 Current Medications Current Medications Medications (Trade) Dose Ordered Sig/Francoise Route PRN Reason Start Time Stop Time Status Last Admin Sodium Chloride (Saline Lock Ns) 10 ml Q8HR IV 03/17/24 22:00 03/18/24 05:47 Acetaminophen (Tylenol Tablet) 325 mg Q4HP PRN PO MILD PAIN (1-3 PAIN SCALE) 03/17/24 21:45 Acetaminophen/ Hydrocodone Bitart ([place] 5/325MG Tab) 1 tab Q4HP PRN PO MODERATE PAIN (4-6 PAIN SCALE) 03/17/24 21:45 Ondansetron HCl (Zofran) 4 mg Q4HP PRN IV NAUSEA / VOMITING 03/17/24 21:45 Nitroglycerin (Ntrostat Sublingual) 0.4 mg Q5MINP PRN SL FOR CHEST PAIN 03/17/24 21:45 Morphine Sulfate 2 mg Q30M PRN IV FOR CHEST PAIN 03/17/24 21:45 Diagnostic Test (Pha) (Accu-Chek Comfort Curve T) 1 strip ACHS 03/17/24 22:00 03/18/24 11:43 Insulin Human Regular (InsuLIN R) AC SC 03/18/24 07:00 03/18/24 11:40 Insulin Human Regular (InsuLIN R) HS SC 03/17/24 22:00 03/17/24 22:07 Dextrose 50 ml UD PRN IV Blood Sugar LESS THAN 60 03/17/24 21:45 Insulin Glargine (Lantus) 25 units QAM SC 03/18/24 07:00 Ceftriaxone Sodium 50 ml @ 100 mls/hr DAILY@09 IV 03/18/24 09:00 03/18/24 09:09 Review of Systems Patient seen and examined at the bedside. Patient is alert and oriented to person and place but disoriented to time. Patient reports right lower extremity pain and bilateral feet tenderness. Patient's blood pressure 145/60 mmHg, heart rate 86 per minute regular, SpO2 98% on room air. Patient does not report any nausea or vomiting, abdominal pain, chest pain, shortness of breath. Vital Signs Vital Signs Date Time Temp Pulse Resp B/P (MAP) Pulse Ox O2 Delivery O2 Flow Rate FiO2 03/18/24 10:50 93 03/18/24 10:02 18 175/92 (119) 97 03/18/24 08:16 Room Air* 0 21 03/17/24 16:48 98.7 Physical Exam Physical Examination Gen - no pallor, no icterus, no cyanosis, no clubbing, no LAD, 1+ edema B/L . Skin - Patients skin is warm and dry.. HEENT - normocephalic, atraumatic, moist mucous membranes. Neck - full ROM, no LAD, no JVD Pulmonary - B/L vesicular breath sounds with mild left lower lobe crackles, no wheezing, no stridor. cardiovascular - normal S1,S2 heard. RUSB systolic murmur heard. peripheral pulses normal radial 2+, pedal 1+. capillary refill normal <2 secs. GI - soft abdomen without tenderness to palpation . no hepatospleenomegaly. Sebastian wel sounds + Neurological - Patient is A/O X 2 . Bilateral upper extremity strength 5/5, bilateral lower extremity strength 4/5, no facial droop, normal speech, no tremor, bilaterally decreased touch sensation in the lower extremities Labs/Diagnostic Data Labs Test 03/18/24 06:53 03/18/24 05:18 03/17/24 23:03 03/17/24 17:27 Range/Units POC Glucose 265 H 70-106 mg/dl White Blood Count 8.9 4.4-10.8 10^3/uL Red Blood Count 3.11 L 4.0-5.20 10^6/uL Hemoglobin 9.6 #L 12.2-16.2 g/dL Hematocrit 28.9 #L 36.0-46.0 % Mean Corpuscular Volume 92.9 80.0-100.0 fL Mean Corpuscular Hemoglobin 30.9 28.0-32.0 pg Mean Corpuscular Hemoglobin Concent 33.3 32.0-36.0 g/dL Red Cell Distribution Width 15.3 H 11.8-14.3 % Platelet Count 104 L 140-450 10^3/uL Mean Platelet Volume 9.5 6.9-10.8 fL Neutrophils (%) (Auto) 71.2 37.0-80.0 % Lymphocytes (%) (Auto) 18.5 10.0-50.0 % Monocytes (%) (Auto) 8.9 0.0-12.0 % Eosinophils (%) (Auto) 0.7 0.0-7.0 % Basophils (%) (Auto) 0.7 0.0-2.0 % Neutrophils # (Auto) 6.3 1.6-8.6 10 ^3/uL Lymphocytes # (Auto) 1.6 0.4-5.4 10 ^3/uL Monocytes # (Auto) 0.8 0-1.3 10 ^3/uL Eosinophils # (Auto) 0.1 0-0.8 10 ^3/uL Basophils # (Auto) 0.1 0-0.2 10 ^3/uL Nucleated Red Blood Cells 0.1 % Sodium Level 142 # 136-145 mmol/L Potassium Level 4.1 3.5-5.1 mmol/L Chloride Level 112 H 98-107 mmol/L Carbon Dioxide Level 20 20-31 mmol/L Anion Gap 10 5-15 Blood Urea Nitrogen 36 H 9-23 mg/dL Creatinine 2.32 H 0.550-1.02 mg/dL Glomerular Filtration Rate Calc 20 >90 mL/min BUN/Creatinine Ratio 15.5 10.0-20.0 Serum Glucose 274 H 74-106 mg/dL Hemoglobin A1c > 14.0 H <5.7 % A1C Calcium Level 8.9 8.7-10.4 mg/dL Phosphorus Level 2.6 2.4-5.1 mg/dL Total Bilirubin 0.5 0.2-1.0 mg/dL Aspartate Amino Transferase (AST) 33 13-40 U/L Alanine Aminotransferase (ALT) 27 7-40 U/L Alkaline Phosphatase 116 46-116 U/L B-Type Natriuretic Peptide 363.99 0-100 pg/mL Total Protein 4.8 L 5.7-8.2 g/dL Albumin 2.9 L 3.2-4.8 g/dL Vitamin B12 Level 1110 H 211-911 pg/mL Vitamin D 25-Hydroxy 36.2 30.0-100 ng/mL Thyroid Stimulating Hormone (TSH) 3.54 0.55-4.78 uIU/mL Parathyroid Hormone (Intact) 99.1 H 18.4-80.1 pg/mL Urine Color Light-yellow Yellow Urine Clarity Turbid H Clear Urine pH 6.0 5.0-9.0 Urine Specific [place] 1.021 1.001-1.035 Urine Protein 3+ H Negative Urine Ketones Negative Negative Urine Blood 2+ H Negative /uL Urine Nitrite Negative Negative Urine Bilirubin Negative Negative Urine Urobilinogen Normal Negative mg/dL Urine Leukocyte Esterase 2+ Negative /uL Urine RBC 7 0 - 4 /hpf Urine WBC 97 0 - 5 /hpf Urine Squamous Epithelial Cells Few <5 /hpf Urine Bacteria Few H None Seen /hpf Urine Creatinine 44.48 30.0-125.0 mg/dL Urine Protein/Creatinine Ratio 8.08 Urine Sodium 27 L 40-220 mmol/L Urine Glucose 4+ H Normal mg/dL Urine Total Protein 359.5 H 1-14 mg/dL Beta-Hydroxybutyric Acid 0.186 < 0.4 mmol/L Plan/Recommendation Assessment and plan # FARNAZ on CKD likely prerenal hemodynamically mediated - serum creatinine 2.52-> 2.32 - serum BUN 39-> 36 - GFR 20 - urine creatinine 44.71 - urine sodium 27 - urine total protein 359.5 mg/dL - FENa- 1% - CXR showing pulmonary congestion and interstitial edema with left lower pleural effusion - patient is started on furosemide 40 mg once daily - avoid nephrotoxic medication - strict I&O # 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 uncontrolled diabetes and diabetic nephropathy - patient's baseline GFR 20-25ml/min - urine total protein 359.5 mg/dL - urine glucose 4+ - renal ultrasound shows left renal atrophy with the lower left pole cyst measuring 2.7 cm - PTH elevated at 99.1 - HBA1c > 14% # uncontrolled diabetes mellitus with hyperglycemia - HbA1c > 14 %, blood glucose more than 500 with normal anion gap - patient was on insulin Lantus 25 units and aggressive ISS # UTI likely acute complicated cystitis # status post mechanical fall # possible CHF Goals of care discussed with the patient and the family for over 20 minutes. Full code Plan discussed with Dr. Tillman Plan discussed with: Patient, Daughter NIKOLAI ESCOBAR RESIDENT Mar 18, 2024 11:47
--- NOTE | 2024-03-18 13:34 | DVHPN2 ---
Reviewed: Care Plan, H&P, Labs, Medications, Previous Orders, Radiology Changes from previous H/P or p: No Changes Eyes: No Pain, No Vision change, No Conjunctivae inflammation, No Eyelid inflammation, No Other, No Redness ENT: No Ear pain, No Ear discharge, No Nose pain, No Nose discharge, No Nose congestion, No Mouth pain, No Mouth swelling, No Throat pain, No Throat swelling, No Other Cardiovascular: No Chest Pain, No Palpitations, No Orthopnea, No Paroxysmal Noc. Dyspnea, No Edema, No Lt Headedness, No Other Respiratory: No Cough, No Dry, No Shortness of breath, No SOB with excertion, No Wheezing, No Hemoptysis, No Pleuritic Pain, No Sputum, No Other Gastrointestinal: No Nausea, No Vomiting, No Abdominal Pain, No Diarrhea, No Constipation, No Melena, No Hematochezia, No Other Genitourinary: Dysuria; No Frequency, No Incontinence, No Hematuria, No Retention, No Other Musculoskeletal: No other, No neck pain, No shoulder pain, No arm pain, No back pain, No hand pain; leg pain, foot pain Skin: No Rash, No Lesions, No Jaundice, No Bruising, No Other Objective Vitals Vital Signs Date Time Temp Pulse Resp B/P (MAP) Pulse Ox O2 Delivery O2 Flow Rate FiO2 03/18/24 10:50 93 03/18/24 10:02 18 175/92 (119) 97 03/18/24 08:16 Room Air* 0 21 03/17/24 16:48 98.7 Intake/Output Intake and Output 03/18/24 07:00 Intake Total 550 ml Balance 550 ml Intake IV Total 550 ml Medications Current Medications Medications Dose Ordered Sig/Francoise Route Start Time Stop Time Status Last Admin Dose Admin Sodium Chloride 10 ml Q8HR IV 03/17/24 22:00 03/18/24 05:47 10 ML Acetaminophen 325 mg Q4HP PRN PO 03/17/24 21:45 Acetaminophen/ Hydrocodone Bitart 1 tab Q4HP PRN PO 03/17/24 21:45 Ondansetron HCl 4 mg Q4HP PRN IV 03/17/24 21:45 Nitroglycerin 0.4 mg Q5MINP PRN SL 03/17/24 21:45 Morphine Sulfate 2 mg Q30M PRN IV 03/17/24 21:45 Diagnostic Test (Pha) 1 strip ACHS 03/17/24 22:00 03/18/24 11:43 1 STRIP Insulin Human Regular AC SC 03/18/24 07:00 03/18/24 11:40 4 UNITS Insulin Human Regular HS SC 03/17/24 22:00 03/17/24 22:07 10 UNITS Dextrose 50 ml UD PRN IV 03/17/24 21:45 Insulin Glargine 25 units QAM SC 03/18/24 07:00 Ceftriaxone Sodium 50 ml @ 100 mls/hr DAILY@09 IV 03/18/24 09:00 03/18/24 09:09 100 MLS/HR Laboratory Results Laboratory Tests 03/18/24 05:18 Chemistry Test 03/17/24 17:27 03/18/24 05:18 Calcium Level 8.9 mg/dL (8.7-10.4) 8.9 mg/dL (8.7-10.4) Albumin 2.9 g/dL (3.2-4.8) L Phosphorus Level 2.6 mg/dL (2.4-5.1) Total Protein 4.8 g/dL (5.7-8.2) L Cardiac Markers Test 03/18/24 05:18 B-Type Natriuretic Peptide 363.99 pg/mL (0-100) LFT Test 03/18/24 05:18 Alanine Aminotransferase (ALT) 27 U/L (7-40) Alkaline Phosphatase 116 U/L (46-116) Aspartate Amino Transferase (AST) 33 U/L (13-40) Total Bilirubin 0.5 mg/dL (0.2-1.0) HgA1c, TSH Test 03/18/24 05:18 Hemoglobin A1c > 14.0 % A1C (<5.7) H Thyroid Stimulating Hormone (TSH) 3.54 uIU/mL (0.55-4.78) Urinalysis Test 03/17/24 23:03 Urine Color Light-yellow (Yellow) Urine Clarity Turbid (Clear) H Urine pH 6.0 (5.0-9.0) Urine Specific [place] 1.021 (1.001-1.035) Urine Protein 3+ (Negative) H Urine Ketones Negative (Negative) Urine Blood 2+ /uL (Negative) H Urine Nitrite Negative (Negative) Urine Bilirubin Negative (Negative) Urine Urobilinogen Normal mg/dL (Negative) Urine Leukocyte Esterase 2+ /uL (Negative) Urine RBC 7 /hpf (0 - 4) Urine WBC 97 /hpf (0 - 5) Urine Squamous Epithelial Cells Few /hpf (<5) Urine Bacteria Few /hpf (None Seen) H Urine Creatinine 44.48 mg/dL (30.0-125.0) Urine Protein/Creatinine Ratio 8.08 Urine Sodium 27 mmol/L (40-220) L Urine Glucose 4+ mg/dL (Normal) H Urine Total Protein 359.5 mg/dL (1-14) H Labs and/or images reviewed: Labs reviewed by me, Image(s) reviewed by me Assessment/Plan Assessment/Plan Sepsis secondary to urinary tract infection: Blood cultures urine cultures Rocephin FARNAZ on CKD: Nephrology consult appreciated CKD 4 Uncontrolled diabetes A1c more than 14: Diabetic education for insulin sliding scale Acute urinary tract infection Atrophic left kidney CT head negative DVT negative Status post mechanical fall without injury Possible Congestive heart failure Spent 65 minutes Patient is full code Advanced care planning time 25 minutes Plan discussed with: Patient Date of Service: Mar 18, 2024 Billing Provider: GAB MOLINA MD Common Visit Codes: [id number] CARE 30-74 MIN GAB MOLINA MD Mar 18, 2024 13:34
--- NOTE | 2024-03-18 16:42 | DVHSR ---
APPROVED REPORT EXAM: Two-dimensional and M-mode echocardiogram with Doppler and color Doppler. Blood Pressure: 138/63 mmHg INDICATION Chest Pain RISK FACTORS Height: 60, Weight: 154 DIMENSIONS LVDd4.1 (3.8-5.7cm)LA (2D)4.2 (1.9-4.0cm)Aortic Root3.2 (2.0-3.7cm) LVDs2.5 (2.5-4.0cm)LA (MM) (1.9-4.0cm)Aortic Cusp Exc1.4 (1.5-2.0cm) EF (%) 70.0 (55-70%)Rt. Atrium3.4 (1.9-4.0cm)Asc. Aorta cm Mitral Valve MitralMitral Stenosis E wave0.84m/sMV Mean GR.4mmHg A wave1.62m/sMV Peak GR.10mmHg E/A ratio0.52D MVAcm2 DECEL [id number] 1/2 Timems Aortic Valve Aortic ValveAortic Stenosis V11.11m/Sola Mean GR.9mmHg V22.08m/Sola Peak GR.17mmHg LVOT Diameter1.8 (1.8-2.4cm)Doppler AVA1.36cm2 Pulmonic Valve V21.22m/s Conclusion Normal left ventricular size and dimension. Normal left ventricular systolic function estimated ejec tion fraction 55%. There is a grade 1 diastolic dysfunction. Normal right ventricular size and dimension. Normal right ventricular systolic function. Normal biatrial size and dimension. There is mild aortic valve sclerosis. Normal mitral valve structure function. Normal tricuspid valve structure and function. The pulmonary valve is grossly normal. No pericardial effusion.
[2024-03-18] MEDS: FUROSEMIDE 40 MG/4 ML VIAL IV ONE (17:51)
[2024-03-18 18:35] VITALS: PULSE 99; RESP 17; O2SAT 100
[2024-03-18 20:00] VITALS: PULSE 95; RESP 18; O2SAT 96
[2024-03-18 21:00] VITALS: BP 173/61; PULSE 95; RESP 18; TEMP 98.2; O2SAT 96
[2024-03-18] MEDS: HYDROcodone-ACET 5/325MG TAB PO PRN (21:37)
[2024-03-18 23:00] VITALS: BP 135/63; PULSE 79
[2024-03-19 05:00] VITALS: BP 171/63; PULSE 93; RESP 17; TEMP 98.1; O2SAT 99
--- NOTE | 2024-03-19 07:14 | ECG ---
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
[2024-03-19 07:16] LABS: Basophils # (auto) 0 10 ^3/uL (0-0.2); Basophils % (auto) 0.4 % (0.0-2.0); Eosinophils # (auto) 0 10 ^3/uL (0-0.8); Eosinophils % (auto) 0.2 % (0.0-7.0); Hematocrit 27.9 % (36.0-46.0); Hemoglobin 9.3 g/dL (12.2-16.2); Lymphocytes # (auto) 1.4 10 ^3/uL (0.4-5.4); Lymphocytes % (auto) 15.4 % (10.0-50.0); Mean Corpuscular Hemoglobin 31.2 pg (28.0-32.0); Mean Corpuscular Hgb Conc. 33.4 g/dL (32.0-36.0); Mean Corpuscular Volume 93.4 fL (80.0-100.0); Monocytes # (auto) 0.7 10 ^3/uL (0-1.3); Monocytes % (auto) 7.3 % (0.0-12.0); Neutrophils % (auto) 76.7 % (37.0-80.0); Red Blood Cells 2.98 10^6/uL (4.0-5.20); Red Cell Distribution Width 15.3 % (11.8-14.3); White Blood Cell 9.1 10^3/uL (4.4-10.8)
[2024-03-19 07:31] LABS: Alanine Aminotransferase 19 U/L (7-40); Albumin 2.9 g/dL (3.2-4.8); Alkaline Phosphatase 101 U/L (46-116); Anion Gap 10 (5-15); Aspartate Aminotransferase 32 U/L (13-40); BUN/Creatinine Ratio 14.5 (10.0-20.0); Blood Urea Nitrogen 34 mg/dL (9-23); Calcium 8.9 mg/dL (8.7-10.4); Carbon Dioxide 19 mmol/L (20-31); Chloride 114 mmol/L (98-107); Glucose 141 mg/dL (74-106); Potassium 4.3 mmol/L (3.5-5.1); Sodium 143 mmol/L (136-145)
[2024-03-19 07:32] LABS: Bilirubin, Total 0.6 mg/dL (0.2-1.0); Total Protein 4.7 g/dL (5.7-8.2)
[2024-03-19 07:34] LABS: Platelet Count (auto) 93 10^3/uL (140-450)
[2024-03-19 08:00] VITALS: PULSE 78; RESP 16; O2SAT 98
[2024-03-19 09:00] VITALS: BP 140/51; PULSE 78; RESP 16; TEMP 97.7; O2SAT 98
--- NOTE | 2024-03-19 09:32 | DVHPN2 ---
Reviewed: Care Plan, H&P, Labs, Medications, Previous Orders, Radiology Changes from previous H/P or p: No Changes Eyes: No Pain, No Vision change, No Conjunctivae inflammation, No Eyelid inflammation, No Other, No Redness ENT: No Ear pain, No Ear discharge, No Nose pain, No Nose discharge, No Nose congestion, No Mouth pain, No Mouth swelling, No Throat pain, No Throat swelling, No Other Cardiovascular: No Chest Pain, No Palpitations, No Orthopnea, No Paroxysmal Noc. Dyspnea, No Edema, No Lt Headedness, No Other Respiratory: No Cough, No Dry, No Shortness of breath, No SOB with excertion, No Wheezing, No Hemoptysis, No Pleuritic Pain, No Sputum, No Other Gastrointestinal: No Nausea, No Vomiting, No Abdominal Pain, No Diarrhea, No Constipation, No Melena, No Hematochezia, No Other Genitourinary: Dysuria; No Frequency, No Incontinence, No Hematuria, No Retention, No Other Musculoskeletal: No other, No neck pain, No shoulder pain, No arm pain, No back pain, No hand pain; leg pain, foot pain Skin: No Rash, No Lesions, No Jaundice, No Bruising, No Other Objective Vitals Vital Signs Date Time Temp Pulse Resp B/P (MAP) Pulse Ox O2 Delivery O2 Flow Rate FiO2 03/19/24 05:00 98.1 93 17 171/63 (99) 99 98.1 03/18/24 20:00 Room Air* 0 21 Intake/Output Intake and Output 03/19/24 07:00 Intake Total 150 ml Balance 150 ml Intake Oral 100 ml IV Total 50 ml # Voids 2 Medications Current Medications Medications Dose Ordered Sig/Francoise Route Start Time Stop Time Status Last Admin Dose Admin Sodium Chloride 10 ml Q8HR IV 03/17/24 22:00 03/19/24 05:53 10 ML Acetaminophen 325 mg Q4HP PRN PO 03/17/24 21:45 Acetaminophen/ Hydrocodone Bitart 1 tab Q4HP PRN PO 03/17/24 21:45 03/18/24 21:37 1 TAB Ondansetron HCl 4 mg Q4HP PRN IV 03/17/24 21:45 Nitroglycerin 0.4 mg Q5MINP PRN SL 03/17/24 21:45 Morphine Sulfate 2 mg Q30M PRN IV 03/17/24 21:45 Diagnostic Test (Pha) 1 strip ACHS 03/17/24 22:00 03/19/24 05:54 1 STRIP Insulin Human Regular AC SC 03/18/24 07:00 03/19/24 05:55 2 UNITS Insulin Human Regular HS SC 03/17/24 22:00 03/18/24 21:41 2 UNITS Dextrose 50 ml UD PRN IV 03/17/24 21:45 Insulin Glargine 25 units QAM SC 03/18/24 07:00 03/19/24 05:56 25 UNITS Ceftriaxone Sodium 50 ml @ 100 mls/hr DAILY@09 IV 03/18/24 09:00 03/18/24 09:09 100 MLS/HR Furosemide 40 mg DAILY IV 03/19/24 10:00 Laboratory Results Laboratory Tests 03/19/24 05:22 Chemistry Test 03/19/24 05:22 Albumin 2.9 g/dL (3.2-4.8) L Calcium Level 8.9 mg/dL (8.7-10.4) Total Protein 4.7 g/dL (5.7-8.2) L LFT Test 03/19/24 05:22 Alanine Aminotransferase (ALT) 19 U/L (7-40) Alkaline Phosphatase 101 U/L (46-116) Aspartate Amino Transferase (AST) 32 U/L (13-40) Total Bilirubin 0.6 mg/dL (0.2-1.0) Urinalysis Test 03/17/24 23:03 Urine Color Light-yellow (Yellow) Urine Clarity Turbid (Clear) H Urine pH 6.0 (5.0-9.0) Urine Specific [place] 1.021 (1.001-1.035) Urine Protein 3+ (Negative) H Urine Ketones Negative (Negative) Urine Blood 2+ /uL (Negative) H Urine Nitrite Negative (Negative) Urine Bilirubin Negative (Negative) Urine Urobilinogen Normal mg/dL (Negative) Urine Leukocyte Esterase 2+ /uL (Negative) Urine RBC 7 /hpf (0 - 4) Urine WBC 97 /hpf (0 - 5) Urine Squamous Epithelial Cells Few /hpf (<5) Urine Bacteria Few /hpf (None Seen) H Urine Creatinine 44.48 mg/dL (30.0-125.0) Urine Protein/Creatinine Ratio 8.08 Urine Sodium 27 mmol/L (40-220) L Urine Glucose 4+ mg/dL (Normal) H Urine Total Protein 359.5 mg/dL (1-14) H Labs and/or images reviewed: Labs reviewed by me, Image(s) reviewed by me Assessment/Plan Assessment/Plan Sepsis secondary to urinary tract infection: Blood cultures pending, urine cultures pending, continue Rocephin FARNAZ on CKD 4: Nephrology consult appreciated, patient refusing dialysis Uncontrolled diabetes A1c more than 14: Diabetic education , insulin sliding scale, per granddaughter Pat at bedside patient was never diagnosed with diabetes in the past, we will start her on metformin and Lantus Diabetic neuropathy nephropathy vasculopathy Acute urinary tract infection Atrophic left kidney CT head negative DVT negative Status post mechanical fall without injury Possible Congestive heart failure: Lasix cardiology consult, echo 55 % ejection fraction Time spent 65 minutes Patient is full code D-dimer ordered Plan discussed with: Patient My Orders Orders - GAB MOLINA MD Procedure Category Date Status Time Blood Culture SHAYNA 03/18/24 In Process 13:31 Communication Order ORDERS 03/18/24 Transmitted 13:32 Influenza Trivalent PHA 03/19/24 In Process [id number] (Flulaval 10:00 * Dietary Consult CONS 03/19/24 Transmitted 02:15 Date of Service: Mar 19, 2024 Billing Provider: GAB MOLINA MD Common Visit Codes: [id number] CARE 30-74 MIN GAB MOLINA MD Mar 19, 2024 09:32
[2024-03-19] MEDS ORDERED: INFLUENZA TRIVALENT 2024-2025 0.5 ML INJ IM ONE (10:00)
[2024-03-19] MEDS: FUROSEMIDE 40 MG/4 ML VIAL IV SCH (10:22)
[2024-03-19 11:06] LABS: Phosphorus 3.3 mg/dL (2.4-5.1)
[2024-03-19 11:09] LABS: INR 1.15 (0.9-1.15); Partial Thromboplastin Time 22.8 SEC (24.5-34.5); Prothrombin Time 12.1 sec (9.3-11.8)
--- NOTE | 2024-03-19 11:26 | DVHINCON2 ---
Date Seen: Mar 19, [address] Gruber Reason for Consultation Possible CHF History of Present Illness Kalli Tobar. 88-year-old female patient who presents to the ED brought by family due to mechanical fall with no loss of consciousness secondary to tripping (this happened while patient was trying to put on her underwear), she had no head trauma, fell on her leg and presented right leg scrape which continued bleeding due to history of thrombocytopenia, which prompted her visit to the ED. she normally mobilizes with a cane in the house. Denies chest pain, dyspnea, fever, chills, nausea, vomiting, diarrhea, constipation, abdominal pain, dysuria and motor or sensory deficits. Past medical history: Hypertension, diabetes non-insulin requiring, dyslipidemia, thrombocytopenia, resting tremors which have been present to years, CKD Surgical history: Cholecystectomy Family history: Noncontributory Social history: Lives in [place] with daughter. Mobilizes in the house with cane, does not use walker. Denies tobacco, alcohol and other drug abuse. Allergies: Aspirin and celecoxib Home medication: Atorvastatin 20 mg p.o. daily, benazepril plus hydrochlorothi azide one tablet daily, linagliptin, glipizide Patient seen and examined at bedside. Currently has no new complaints, persists with right knee pain. Past Medical History Per HPI Past Surgical History Per HPI Family History: Cardiovascular disease G8 MOTHER Diabetes mellitus G8 MOTHER G8 FATHER Family History Per HPI Social History Per HPI Allergies: Coded Allergies: Aspirin (Unverified Allergy, Unknown, 08/23/20) Celecoxib (Verified Adverse Reaction, Severe, WEAKNESS, 04/05/11) Home Meds Active Scripts Cephalexin (KEFLEX CAPSULE) 250 Mg Cp, 1 CAP PO QID, #28 CAP Prov:KEELY LANG MD 10/14/22 Levofloxacin Hemihydrate (LEVOFLOXACIN) 750 Mg Tab, 1 TAB PO DAILY, #10 TAB Prov:EDWIN ZARAGOZA MD 08/26/20 Reported Medications Atorvastatin Calcium (Lipitor) 40 Mg Tab, 1 TAB PO QPM, TAB 03/19/24 Allopurinol (Allopurinol) 100 Mg Tab, 100 MG PO TID for 30 Days, MG 03/19/24 Glipizide (Glipizide) 5 Mg Tab, 5 MG PO DAILY for 30 Days, MG 03/19/24 Losartan Potassium (Losartan Potassium) 50 Mg Tab, 50 MG PO DAILY, MG 03/19/24 Ferrous Sulfate (Ferosul) 325 Mg Tab, 325 MG PO QPM, TAB 03/19/24 Linagliptin Base (TRADJENTA) 5 Mg Tab, 5 MG PO DAILY, TAB 10/06/20 Atorvastatin Calcium (Lipitor) 20 Mg Tab, 20 MG PO DAILY, TAB 10/06/20 Benazepril & Hydrochlorothiazi (Benazepril Hcl/Hydrochlor) 1 Tab Tab, 1 TAB PO DAILY, TAB 10/06/20 Current Medications Current Medications Medications (Trade) Dose Ordered Sig/Francoise Route PRN Reason Start Time Stop Time Status Last Admin Furosemide (Lasix Injection) 40 mg DAILY IV 03/19/24 10:00 03/19/24 10:22 Metformin HCl (Glucophage) 1,000 mg BIDWM PO 03/19/24 18:00 03/19/24 09:58 DC Review of Systems Per HPI Vital Signs Vital Signs Date Time Temp Pulse Resp B/P (MAP) Pulse Ox O2 Delivery O2 Flow Rate FiO2 03/19/24 10:22 147/71 03/19/24 09:00 97.7 78 16 98 97.7 03/18/24 20:00 Room Air* 0 21 Physical Exam Patient lying in bed, in no acute distress General: Lucid, afebrile, mucosae are moist Cardiovascular: Normal S1 and S2. No murmurs, gallops or rubs. No JVD Respiratory: Normal ventilation mechanics. Clear lung sounds on auscultation Abdomen: Soft, nontender, no organomegaly, normal bowel sounds MSK/skin: Mobilizes 4 limbs. Skin is dry and warm. Senile purpura generalized, left leg hematoma which is warm on touch. Right leg has no active signs of bleeding. Tenderness on palpation of both legs and knees Neurological: Oriented in 3 spheres. No motor no sensitive deficits. Pupils are isocoric and reactive Labs/Diagnostic Data Labs Test 03/19/24 10:18 03/19/24 05:41 03/19/24 05:22 03/18/24 05:18 Range/Units Prothrombin Time 12.1 H 9.3-11.8 sec Prothrombin Time INR 1.15 0.9-1.15 Activated Partial Thromboplast Time 22.8 L 24.5-34.5 SEC D-Dimer, Quantitative 8.54 H 0.0-0.49 mg/L FEU POC Glucose 146 H 70-106 mg/dl White Blood Count 9.1 4.4-10.8 10^3/uL Red Blood Count 2.98 L 4.0-5.20 10^6/uL Hemoglobin 9.3 L 12.2-16.2 g/dL Hematocrit 27.9 L 36.0-46.0 % Mean Corpuscular Volume 93.4 80.0-100.0 fL Mean Corpuscular Hemoglobin 31.2 28.0-32.0 pg Mean Corpuscular Hemoglobin Concent 33.4 32.0-36.0 g/dL Red Cell Distribution Width 15.3 H 11.8-14.3 % Platelet Count 93 L 140-450 10^3/uL Mean Platelet Volume 9.6 6.9-10.8 fL Neutrophils (%) (Auto) 76.7 37.0-80.0 % Lymphocytes (%) (Auto) 15.4 10.0-50.0 % Monocytes (%) (Auto) 7.3 0.0-12.0 % Eosinophils (%) (Auto) 0.2 0.0-7.0 % Basophils (%) (Auto) 0.4 0.0-2.0 % Neutrophils # (Auto) 7.0 1.6-8.6 10 ^3/uL Lymphocytes # (Auto) 1.4 0.4-5.4 10 ^3/uL Monocytes # (Auto) 0.7 0-1.3 10 ^3/uL Eosinophils # (Auto) 0 0-0.8 10 ^3/uL Basophils # (Auto) 0 0-0.2 10 ^3/uL Nucleated Red Blood Cells 0.0 % Sodium Level 143 136-145 mmol/L Potassium Level 4.3 3.5-5.1 mmol/L Chloride Level 114 H 98-107 mmol/L Carbon Dioxide Level 19 L 20-31 mmol/L Anion Gap 10 5-15 Blood Urea Nitrogen 34 H 9-23 mg/dL Creatinine 2.35 H 0.550-1.02 mg/dL Glomerular Filtration Rate Calc 20 >90 mL/min BUN/Creatinine Ratio 14.5 10.0-20.0 Serum Glucose 141 H 74-106 mg/dL Calcium Level 8.9 8.7-10.4 mg/dL Phosphorus Level 3.3 2.4-5.1 mg/dL Magnesium Level 2.0 1.6-2.6 mg/dL Total Bilirubin 0.6 0.2-1.0 mg/dL Aspartate Amino Transferase (AST) 32 13-40 U/L Alanine Aminotransferase (ALT) 19 7-40 U/L Alkaline Phosphatase 101 46-116 U/L Total Protein 4.7 L 5.7-8.2 g/dL Albumin 2.9 L 3.2-4.8 g/dL Vitamin D 25-Hydroxy 28.6 L 30.0-100 ng/mL Hemoglobin A1c > 14.0 H <5.7 % A1C B-Type Natriuretic Peptide 363.99 0-100 pg/mL Thyroid Stimulating Hormone (TSH) 3.54 0.55-4.78 uIU/mL Parathyroid Hormone (Intact) 99.1 H 18.4-80.1 pg/mL Test 03/17/24 23:03 03/17/24 17:27 Range/Units Urine Color Light-yellow Yellow Urine Clarity Turbid H Clear Urine pH 6.0 5.0-9.0 Urine Specific [place] 1.021 1.001-1.035 Urine Protein 3+ H Negative Urine Ketones Negative Negative Urine Blood 2+ H Negative /uL Urine Nitrite Negative Negative Urine Bilirubin Negative Negative Urine Urobilinogen Normal Negative mg/dL Urine Leukocyte Esterase 2+ Negative /uL Urine RBC 7 0 - 4 /hpf Urine WBC 97 0 - 5 /hpf Urine Squamous Epithelial Cells Few <5 /hpf Urine Bacteria Few H None Seen /hpf Urine Creatinine 44.48 30.0-125.0 mg/dL Urine Protein/Creatinine Ratio 8.08 Urine Sodium 27 L 40-220 mmol/L Urine Glucose 4+ H Normal mg/dL Urine Total Protein 359.5 H 1-14 mg/dL Beta-Hydroxybutyric Acid 0.186 < 0.4 mmol/L Assessment Cardiorenal syndrome type 4 Hypertensive urgency Diabetes-uncontrolled (hemoglobin A1c above 14%) UTI Mechanical fall CKD probably secondary to diabetes Hypertension Dyslipidemia Thrombocytopenia Plan/Recommendation Patient on admission had signs of fluid overload (chest x-ray show pulmonary edema with BNP of 363). This could probably secondary to her chronic kidney disease due to diabetes. Patient required one dose of IV diuretics. Recommend switching to p.o. at this time, since patient has no signs of fluid overload. Echocardiogram completed: LVEF 55%, grade 1 diastolic dysfunction, aortic valve sclerosis, rest of study within normal limits. Optimize loading conditions (patient on admission had systolic blood pressure above 180 mmHg, currently 140 mmHg) Kidney ultrasound: Left renal atrophy with cyst that measures up to 2.7 cm, free fluid seen as well. Lower limb venous extremity ultrasound: Negative for DVT Head CT: No intracranial bleeding Appreciate nephrology consult Added Amlodipine 5 mg PO daily Discussed case with Dr. Jurado, patient and nurses: Patient currently has no signs of fluid overload, recommend switching to p.o. diuretics. Probable cause of fluid retention was cardiorenal syndrome. Recommend avoiding nephrotoxic medication, controlling diabetes and hypertension. Patient hemodynamically stable, no further cardiological work up required during this admission. Suggest follow up as outpatient. We will sign off, please reconsult if necessary. Thank you for letting us participate in the care of this patient. Plan discussed with: Patient, Daughter, Other (Grandaughter and nurses) Date of Service: Mar 19, 2024 Billing Provider: GILLIAN JURADO MD Cardiology Common Codes: 39613-[id number] INP/OBS CARE (High), [id number] CARE 30-74 MIN JEWELL MATUTE RESIDENT Mar 19, 2024 11:26
[2024-03-19] MEDS ORDERED: GLIP5TAB21 PO ×2 (11:43→20:02)
[2024-03-19] MEDS ORDERED: LOSA-534 PO (11:43)
[2024-03-19] MEDS ORDERED: ATOR-507 PO (11:43)
[2024-03-19] MEDS ORDERED: ALLO100T PO (11:43)
[2024-03-19] MEDS ORDERED: FERR325T20 PO ×2 (11:43→20:04)
[2024-03-19 13:00] VITALS: BP 167/72; PULSE 87; RESP 16; TEMP 98.2; O2SAT 96
--- NOTE | 2024-03-19 13:41 | DVH ---
CHEST RADIOGRAPH Indication:pulmonary crackles chf Technique: Single frontal view of the chest was obtained COMPARISON: XY CHEST PORTABLE on DOS: 03/18/24, XY CHEST PORTABLE on DOS: 10/14/22, EKG on DOS: 03/01/22 FINDINGS: Lines and Tubes: None Lungs: Clear Pleura: No effusion. No pneumothorax. Cardiomediastinal contours: Unremarkable Bones: Unremarkable IMPRESSION: No acute disease.
--- NOTE | 2024-03-19 16:49 | DVH ---
EXAM: NM PERFUSION SCAN HISTORY: Elevated D-dimer rule out PULMONARY EMBOLISM. COMPARISON: None TECHNIQUE: Following the administration of the perfusion agent, standard projections of the lungs we re acquired. Findings: Perfusion images demonstrate homogeneous distribution of radiotracer throughout both lungs. No periph eral wedge-shaped moderate or large subsegmental or segmental perfusion defects to suggest acute pul monary embolism. Impression: 1. Low probability for pulmonary embolism.
[2024-03-19] MEDS ORDERED: metFORMIN HYDROCHLORIDE 500 MG TAB PO SCH (18:00)
--- NOTE | 2024-03-19 19:40 | DVHPN2 ---
Progress Note Date Seen: Mar 19, 2024 Resident Creating Document: JAMILAH ESCOBARGALEN RESIDENT Medical Necessity Reason Pt with a Central, PICC or Fol: No Subjective Review of Systems Patient is a 88-year-old female with a past medical history of hypertension, type 2 diabetes mellitus, chronic kidney disease, peripheral neuropathy was brought to the hospital after she was reported to fall in the restroom. Daughter reported that she was in the restroom and when she tried to stand up her leg gave out and she fell to the ground without hitting her head, no loss of consciousness but had bleeding from the right lower extremity. To laceration was noted on the right edwards which was sutured. Patient reported bilateral lower limb numbness and tingling with the last 6 months which has gotten worse over time. On admission patient's blood pressure 182/93 mmHg, blood sugar 695 mg/dl. Patient denied chest pain, shortness of breath, dizziness, diaphoresis, abdominal pain, nausea, vomiting, change in bowel bladder habits. Bilateral lower extremity Venous duplex showed no right or left femoropopliteal vein thrombosis. Chest x-ray shows pulmonary venous congestion and interstitial edema with suspected left sided pleural effusion Head CT without contrast showed no acute intracranial process Past Medical History: hypertension, type 2 diabetes mellitus, chronic kidney disease, peripheral neuropathy Past Surgical History: Hernia surgery Social History: Patient lives with family and denies smoking, alcohol, drug use Review of systems Patient seen and examined at the bedside. Patient is alert and oriented to person and place but disoriented to time. Patient reports right lower extremity pain and bilateral feet tenderness. Patient's blood pressure 140/51 mmHg, heart rate 78 per minute regular, SpO2 98% on room air. Patient does not report any nausea or vomiting, abdominal pain, chest pain, shortness of breath. Chest x- ray was repeated which shows improved aeration. Objective vital signs Vital Sign Date Time Temp Pulse Resp B/P (MAP) Pulse Ox O2 Delivery O2 Flow Rate FiO2 03/19/24 13:00 98.2 87 16 167/72 (103) 96 98.2 03/18/24 20:00 Room Air* 0 21 Total Intake and Output 03/18/24 03/18/24 03/19/24 15:00 23:00 07:00 Intake Total 50 ml 100 ml Balance 50 ml 100 ml medications Current Medications Medications Dose Ordered Sig/Francoise Route Start Time Stop Time Status Last Admin Dose Admin Sodium Chloride 10 ml Q8HR IV 03/17/24 22:00 03/19/24 14:00 10 ML Acetaminophen 325 mg Q4HP PRN PO 03/17/24 21:45 Acetaminophen/ Hydrocodone Bitart 1 tab Q4HP PRN PO 03/17/24 21:45 03/18/24 21:37 1 TAB Ondansetron HCl 4 mg Q4HP PRN IV 03/17/24 21:45 Nitroglycerin 0.4 mg Q5MINP PRN SL 03/17/24 21:45 Morphine Sulfate 2 mg Q30M PRN IV 03/17/24 21:45 Diagnostic Test (Pha) 1 strip ACHS 03/17/24 22:00 03/19/24 17:00 1 STRIP Insulin Human Regular AC SC 03/18/24 07:00 03/19/24 17:00 2 UNITS Insulin Human Regular HS SC 03/17/24 22:00 03/18/24 21:41 2 UNITS Dextrose 50 ml UD PRN IV 03/17/24 21:45 Insulin Glargine 25 units QAM SC 03/18/24 07:00 03/19/24 05:56 25 UNITS Ceftriaxone Sodium 50 ml @ 100 mls/hr DAILY@09 IV 03/18/24 09:00 03/19/24 10:17 100 MLS/HR Amlodipine Besylate 5 mg DAILY PO 03/20/24 10:00 Furosemide 20 mg DAILY PO 03/20/24 10:00 Examination Physical Examination Gen - no pallor, no icterus, no cyanosis, no clubbing, no LAD, trace pedal edema Skin - Patients skin is warm and dry. HEENT - normocephalic, atraumatic, moist mucous membranes. Neck - full ROM, no LAD, no JVD Pulmonary - B/L vesicular breath sounds, no crackles, no wheezing, no stridor. cardiovascular - normal S1,S2 heard. RUSB systolic murmur heard. peripheral pulses normal radial 2+, pedal 1+. capillary refill normal <2 secs. GI - soft abdomen without tenderness to palpation . no hepatospleenomegaly. Bowel sounds + Neurological - Patient is A/O X 2 . Bilateral upper extremity strength 5/5, bilateral lower extremity strength 4/5, no facial droop, normal speech, no tremor, bilaterally decreased touch sensation in the lower extremities laboratory and microbiology Laboratory Tests 03/19/24 05:22 Test 03/19/24 05:22 Range/Units Serum Glucose 141 H 74-106 mg/dL Microbiology Date/Time Source Procedure Growth Status 03/18/24 14:07 Blood Blood Culture - Preliminary NO GROWTH AFTER 24 HOURS OF INCUBATION. 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 uncontrolled diabetes and diabetic nephropathy - patient's baseline GFR 20-25ml/min - urine total protein 359.5 mg/dL - urine glucose 4+ - renal ultrasound shows left renal atrophy with the lower left pole cyst measuring 2.7 cm - PTH elevated at 99.1 - HBA1c > 14% # uncontrolled diabetes mellitus with hyperglycemia - HbA1c > 14 %, blood glucose more than 500 with normal anion gap - patient on insulin Lantus 25 units and aggressive ISS # UTI likely acute complicated cystitis # status post mechanical fall # possible CHF Goals of care discussed with the patient and the family for over 20 minutes. Full code Plan discussed with Plan discussed with: Patient My Orders My Orders Orders - NIKOLAI ESCOBAR RESIDENT Procedure Category Date Status Time Chest Xray 1 View XY 03/19/24 Resulted 10:39 Strict I & O GRACE 03/19/24 In Process 12:30 Dietary Evaluation Review Comments: 1) Continue to monitor pt PO intake tp meet at least 75% of meals 2) Consider Prune Juice BID with meals 3) Continue current plan of care Expected Outcomes/Goals: F/U in 3-5 days NIKOLAI ESCOBAR Mar 19, 2024 19:40 COLIN CASTANO MD Mar 19, 2024 19:41
[2024-03-19 20:00] VITALS: PULSE 76; RESP 17; O2SAT 95
[2024-03-19 21:00] VITALS: BP 167/70; PULSE 76; RESP 17; TEMP 98.3; O2SAT 95
[2024-03-20] VITALS (7 sets, daily range): BP systolic 146–170; BP diastolic 53–83; PULSE 68–88; RESP 16–18; TEMP 98.2–98.6; O2SAT 92–100
--- NOTE | 2024-03-20 08:17 | DVHPN2 ---
Progress Note Date Seen: Mar 20, 2024 Resident Creating Document: JAMILAH ESCOBARGALEN RESIDENT Medical Necessity Reason Pt with a Central, PICC or Fol: No Subjective Review of Systems Patient is a 88-year-old female with a past medical history of hypertension, type 2 diabetes mellitus, chronic kidney disease, peripheral neuropathy was brought to the hospital after she was reported to fall in the restroom. Daughter reported that she was in the restroom and when she tried to stand up her leg gave out and she fell to the ground without hitting her head, no loss of consciousness but had bleeding from the right lower extremity. To laceration was noted on the right edwards which was sutured. Patient reported bilateral lower limb numbness and tingling with the last 6 months which has gotten worse over time. On admission patient's blood pressure 182/93 mmHg, blood sugar 695 mg/dl. Patient denied chest pain, shortness of breath, dizziness, diaphoresis, abdominal pain, nausea, vomiting, change in bowel bladder habits. Bilateral lower extremity Venous duplex showed no right or left femoropopliteal vein thrombosis. Chest x-ray shows pulmonary venous congestion and interstitial edema with suspected left sided pleural effusion Head CT without contrast showed no acute intracranial process Past Medical History: hypertension, type 2 diabetes mellitus, chronic kidney disease, peripheral neuropathy Past Surgical History: Hernia surgery Social History: Patient lives with family and denies smoking, alcohol, drug use Review of systems Patient seen and examined at the bedside. Patient is alert and oriented to person and place but disoriented to time. Patient reports right lower extremity pain and bilateral feet tenderness. Patient's blood pressure 146/70 mmHg, heart rate 87 per minute regular, SpO2 98% on room air. Patient does not report any nausea or vomiting, abdominal pain, chest pain, shortness of breath. Objective vital signs Vital Sign Date Time Temp Pulse Resp B/P (MAP) Pulse Ox O2 Delivery O2 Flow Rate FiO2 03/20/24 05:00 98.6 79 17 158/83 (108) 100 98.6 03/19/24 20:00 Room Air* 0 21 Total Intake and Output 03/19/24 03/19/24 03/20/24 15:00 23:00 07:00 Intake Total 50 ml 825 ml 200 ml Output Total 450 ml 275 ml Balance 50 ml 375 ml -75 ml medications Current Medications Medications Dose Ordered Sig/Francoise Route Start Time Stop Time Status Last Admin Dose Admin Sodium Chloride 10 ml Q8HR IV 03/17/24 22:00 03/20/24 05:42 10 ML Acetaminophen 325 mg Q4HP PRN PO 03/17/24 21:45 Acetaminophen/ Hydrocodone Bitart 1 tab Q4HP PRN PO 03/17/24 21:45 03/18/24 21:37 1 TAB Ondansetron HCl 4 mg Q4HP PRN IV 03/17/24 21:45 Nitroglycerin 0.4 mg Q5MINP PRN SL 03/17/24 21:45 Morphine Sulfate 2 mg Q30M PRN IV 03/17/24 21:45 Diagnostic Test (Pha) 1 strip ACHS 03/17/24 22:00 03/20/24 05:42 1 STRIP Insulin Human Regular AC SC 03/18/24 07:00 03/19/24 17:00 2 UNITS Insulin Human Regular HS SC 03/17/24 22:00 03/19/24 22:31 3 UNITS Dextrose 50 ml UD PRN IV 03/17/24 21:45 Insulin Glargine 25 units QAM SC 03/18/24 07:00 03/19/24 05:56 25 UNITS Ceftriaxone Sodium 50 ml @ 100 mls/hr DAILY@09 IV 03/18/24 09:00 03/19/24 10:17 100 MLS/HR Amlodipine Besylate 5 mg DAILY PO 03/20/24 10:00 Furosemide 20 mg DAILY PO 03/20/24 10:00 Examination Physical Examination Gen - no pallor, no icterus, no cyanosis, no clubbing, no LAD, trace pedal edema Skin - Patients skin is warm and dry. HEENT - normocephalic, atraumatic, moist mucous membranes. Neck - full ROM, no LAD, no JVD Pulmonary - B/L vesicular breath sounds, no crackles, no wheezing, no stridor. cardiovascular - normal S1,S2 heard. RUSB systolic murmur heard. peripheral pulses normal radial 2+, pedal 1+. capillary refill normal <2 secs. GI - soft abdomen without tenderness to palpation . no hepatospleenomegaly. Bowel sounds + Neurological - Patient is A/O X 2 . Bilateral upper extremity strength 5/5, bilateral lower extremity strength 4/5, no facial droop, normal speech, no tremor, bilaterally decreased touch sensation in the lower extremities laboratory and microbiology Laboratory Tests 03/19/24 05:22 Test 03/19/24 05:22 Range/Units Serum Glucose 141 H 74-106 mg/dL Microbiology Date/Time Source Procedure Growth Status 03/18/24 14:07 Blood Blood Culture - Preliminary NO GROWTH AFTER 24 HOURS OF INCUBATION. Resulted Problem List/Assessment/Plan Problem List/Assessment/Plan Assessment and plan # FARNAZ on CKD likely prerenal hemodynamically mediated - serum creatinine 2.52-> 2.32-->2.35--> 2.78 - serum BUN 39-> 36->34--> 44 - GFR 20 - urine creatinine 44.71 - urine sodium 27 - urine total protein 359.5 mg/dL - FENa- 1% - CXR showing pulmonary congestion and interstitial edema with left lower pleural effusion - on furosemide 20 mg p.o. 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 uncontrolled diabetes and diabetic nephropathy - patient's baseline GFR 20-25ml/min - urine total protein 359.5 mg/dL - urine glucose 4+ - renal ultrasound shows left renal atrophy with the lower left pole cyst measuring 2.7 cm - PTH elevated at 99.1 - HBA1c > 14% # uncontrolled diabetes mellitus with hyperglycemia - HbA1c > 14 %, blood glucose more than 500 with normal anion gap - patient on insulin Lantus 25 units and aggressive ISS # UTI likely acute complicated cystitis # status post mechanical fall # possible CHF Goals of care discussed with the patient and the family for over 20 minutes. Full code Plan discussed with Addendum Patient seen and examined, plan discussed with resident. Patient has been changed to oral Lasix by primary medical team However I recommend IV Lasix daily while inpatient given chest x-ray findings Repeat chest x-ray in a.m. Plan discussed with: Patient, Daughter, Other My Orders My Orders Orders - NIKOLAI ESCOBAR RESIDENT Procedure Category Date Status Time Chest Xray 1 View XY 03/19/24 Resulted 10:39 Strict I & O GRACE 03/19/24 In Process 12:30 Basic Metabolic Panel LAB 03/20/24 Logged 08:07 Complete Blood Count LAB 03/20/24 Logged 08:07 Dietary Evaluation Review Comments: 1) Continue to monitor pt PO intake tp meet at least 75% of meals 2) Consider Prune Juice BID with meals 3) Continue current plan of care Expected Outcomes/Goals: F/U in 3-5 days NIKOLAI ESCOBAR RESIDENT Mar 20, 2024 08:17 COLIN CASTANO MD Mar 20, 2024 18:04
--- NOTE | 2024-03-20 08:32 | DVHPN2 ---
Reviewed: Care Plan, H&P, Labs, Medications, Previous Orders, Radiology Changes from previous H/P or p: No Changes Eyes: No Pain, No Vision change, No Conjunctivae inflammation, No Eyelid inflammation, No Other, No Redness ENT: No Ear pain, No Ear discharge, No Nose pain, No Nose discharge, No Nose congestion, No Mouth pain, No Mouth swelling, No Throat pain, No Throat swelling, No Other Cardiovascular: No Chest Pain, No Palpitations, No Orthopnea, No Paroxysmal Noc. Dyspnea, No Edema, No Lt Headedness, No Other Respiratory: No Cough, No Dry, No Shortness of breath, No SOB with excertion, No Wheezing, No Hemoptysis, No Pleuritic Pain, No Sputum, No Other Gastrointestinal: No Nausea, No Vomiting, No Abdominal Pain, No Diarrhea, No Constipation, No Melena, No Hematochezia, No Other Genitourinary: Dysuria; No Frequency, No Incontinence, No Hematuria, No Retention, No Other Musculoskeletal: No other, No neck pain, No shoulder pain, No arm pain, No back pain, No hand pain; leg pain, foot pain Skin: No Rash, No Lesions, No Jaundice, No Bruising, No Other Objective Vitals Vital Signs Date Time Temp Pulse Resp B/P (MAP) Pulse Ox O2 Delivery O2 Flow Rate FiO2 03/20/24 05:00 98.6 79 17 158/83 (108) 100 98.6 03/19/24 20:00 Room Air* 0 21 Intake/Output Intake and Output 03/20/24 07:00 Intake Total 1075 ml Output Total 725 ml Balance 350 ml Intake Oral 1025 ml IV Total 50 ml Output Urine Total 725 ml Medications Current Medications Medications Dose Ordered Sig/Francoise Route Start Time Stop Time Status Last Admin Dose Admin Sodium Chloride 10 ml Q8HR IV 03/17/24 22:00 03/20/24 05:42 10 ML Acetaminophen 325 mg Q4HP PRN PO 03/17/24 21:45 Acetaminophen/ Hydrocodone Bitart 1 tab Q4HP PRN PO 03/17/24 21:45 03/18/24 21:37 1 TAB Ondansetron HCl 4 mg Q4HP PRN IV 03/17/24 21:45 Nitroglycerin 0.4 mg Q5MINP PRN SL 03/17/24 21:45 Morphine Sulfate 2 mg Q30M PRN IV 03/17/24 21:45 Diagnostic Test (Pha) 1 strip ACHS 03/17/24 22:00 03/20/24 05:42 1 STRIP Insulin Human Regular AC SC 03/18/24 07:00 03/19/24 17:00 2 UNITS Insulin Human Regular HS SC 03/17/24 22:00 03/19/24 22:31 3 UNITS Dextrose 50 ml UD PRN IV 03/17/24 21:45 Insulin Glargine 25 units QAM SC 03/18/24 07:00 03/19/24 05:56 25 UNITS Ceftriaxone Sodium 50 ml @ 100 mls/hr DAILY@09 IV 03/18/24 09:00 03/19/24 10:17 100 MLS/HR Amlodipine Besylate 5 mg DAILY PO 03/20/24 10:00 Furosemide 20 mg DAILY PO 03/20/24 10:00 Laboratory Results Laboratory Tests 03/19/24 05:22 Coagulation Test 03/19/24 10:18 Prothrombin Time 12.1 sec (9.3-11.8) H Prothrombin Time INR 1.15 (0.9-1.15) Activated Partial Thromboplast Time 22.8 SEC (24.5-34.5) L D-Dimer, Quantitative 8.54 mg/L FEU (0.0-0.49) H Urinalysis Test 03/17/24 23:03 Urine Color Light-yellow (Yellow) Urine Clarity Turbid (Clear) H Urine pH 6.0 (5.0-9.0) Urine Specific [place] 1.021 (1.001-1.035) Urine Protein 3+ (Negative) H Urine Ketones Negative (Negative) Urine Blood 2+ /uL (Negative) H Urine Nitrite Negative (Negative) Urine Bilirubin Negative (Negative) Urine Urobilinogen Normal mg/dL (Negative) Urine Leukocyte Esterase 2+ /uL (Negative) Urine RBC 7 /hpf (0 - 4) Urine WBC 97 /hpf (0 - 5) Urine Squamous Epithelial Cells Few /hpf (<5) Urine Bacteria Few /hpf (None Seen) H Urine Creatinine 44.48 mg/dL (30.0-125.0) Urine Protein/Creatinine Ratio 8.08 Urine Sodium 27 mmol/L (40-220) L Urine Glucose 4+ mg/dL (Normal) H Urine Total Protein 359.5 mg/dL (1-14) H Microbiology Microbiology Date/Time Source Procedure Growth Status 03/18/24 14:07 Blood Blood Culture - Preliminary NO GROWTH AFTER 24 HOURS OF INCUBATION. 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 cardiology consult appreciated, no further cardiac workup Time spent 65 minutes Patient is full code D-dimer ordered Plan discussed with: Patient My Orders Orders - GAB MOLINA MD Procedure Category Date Status Time * Cardiology Consult CONS 03/19/24 Transmitted 09:21 Nm Vq Scan NM 03/19/24 Resulted 11:26 Date of Service: Mar 20, 2024 Billing Provider: GAB MOLINA MD Common Visit Codes: [id number] CARE 30-74 MIN GAB MOLINA MD Mar 20, 2024 08:32
[2024-03-20 09:05] LABS: Basophils # (auto) 0.1 10 ^3/uL (0-0.2); Basophils % (auto) 0.9 % (0.0-2.0); Eosinophils # (auto) 0.3 10 ^3/uL (0-0.8); Eosinophils % (auto) 2.7 % (0.0-7.0); Hematocrit 28.5 % (36.0-46.0); Hemoglobin 9.6 g/dL (12.2-16.2); Lymphocytes # (auto) 2.4 10 ^3/uL (0.4-5.4); Lymphocytes % (auto) 24.7 % (10.0-50.0); Mean Corpuscular Hemoglobin 31.3 pg (28.0-32.0); Mean Corpuscular Hgb Conc. 33.7 g/dL (32.0-36.0); Mean Corpuscular Volume 92.7 fL (80.0-100.0); Monocytes # (auto) 0.8 10 ^3/uL (0-1.3); Monocytes % (auto) 8.2 % (0.0-12.0); Neutrophils # (auto) 6.1 10 ^3/uL (1.6-8.6); Neutrophils % (auto) 63.5 % (37.0-80.0); Nucleated Red Blood Cells % 0.1 %; Platelet Count (auto) 112 10^3/uL (140-450); Red Blood Cells 3.07 10^6/uL (4.0-5.20); Red Cell Distribution Width 15.3 % (11.8-14.3); White Blood Cell 9.7 10^3/uL (4.4-10.8)
[2024-03-20 09:18] LABS: Chloride 111 mmol/L (98-107); Potassium 4.2 mmol/L (3.5-5.1); Sodium 142 mmol/L (136-145)
[2024-03-20 09:19] LABS: Anion Gap 6 (5-15); Calcium 8.7 mg/dL (8.7-10.4); Carbon Dioxide 25 mmol/L (20-31)
[2024-03-20 09:24] LABS: BUN/Creatinine Ratio 15.8 (10.0-20.0); Glucose 151 mg/dL (74-106)
[2024-03-20 09:27] LABS: Blood Urea Nitrogen 44 mg/dL (9-23)
[2024-03-20] MEDS: amLODIPine BESYLATE 5 MG TAB PO SCH (09:48)
[2024-03-20] MEDS: FUROSEMIDE 20 MG TAB PO SCH (09:48)
--- NOTE | 2024-03-20 11:34 | CONS ---
Pharmacy Clinical Information: Patient from [facility] HF report. Patient was missing lipid lowering drug in the r eport, atorvastatin 20mg PO daily was already added to patient's medications. ESTRELLA GR PHARMACIST Mar 20, 2024 11:34
[2024-03-20] MEDS: ATORVASTATIN 20 MG TAB PO SCH (21:22)
[2024-03-21] VITALS (7 sets, daily range): BP systolic 96–157; BP diastolic 40–61; PULSE 64–85; RESP 15–18; TEMP 97.9–98.4; O2SAT 96–99
--- NOTE | 2024-03-21 06:10 | DVH ---
CHEST RADIOGRAPH Indication:edema Technique: Single frontal view of the chest was obtained Comparison: XY CHEST XRAY 1 VIEW on DOS: 03/19/24 FINDINGS: Lines and Tubes: None Lungs: Patient's hand obscures the right chest. No focal consolidation. Pleura: No effusion. No pneumothorax. Cardiomediastinal contours: Unremarkable Bones: No acute osseous abnormality. IMPRESSION: 1. No acute cardiopulmonary disease.
[2024-03-21 07:22] LABS: Chloride 113 mmol/L (98-107); Sodium 144 mmol/L (136-145)
[2024-03-21 07:23] LABS: Anion Gap 7 (5-15); Calcium 8.5 mg/dL (8.7-10.4); Carbon Dioxide 24 mmol/L (20-31)
[2024-03-21 07:28] LABS: BUN/Creatinine Ratio 19.1 (10.0-20.0); Blood Urea Nitrogen 51 mg/dL (9-23); Glucose 109 mg/dL (74-106)
[2024-03-21 07:29] LABS: Creatine Kinase IFCC 109 U/L (34-145)
--- NOTE | 2024-03-21 09:24 | DVHPN2 ---
Reviewed: Care Plan, H&P, Labs, Medications, Previous Orders, Radiology Changes from previous H/P or p: No Changes Eyes: No Pain, No Vision change, No Conjunctivae inflammation, No Eyelid inflammation, No Other, No Redness ENT: No Ear pain, No Ear discharge, No Nose pain, No Nose discharge, No Nose congestion, No Mouth pain, No Mouth swelling, No Throat pain, No Throat swelling, No Other Cardiovascular: No Chest Pain, No Palpitations, No Orthopnea, No Paroxysmal Noc. Dyspnea, No Edema, No Lt Headedness, No Other Respiratory: No Cough, No Dry, No Shortness of breath, No SOB with excertion, No Wheezing, No Hemoptysis, No Pleuritic Pain, No Sputum, No Other Gastrointestinal: No Nausea, No Vomiting, No Abdominal Pain, No Diarrhea, No Constipation, No Melena, No Hematochezia, No Other Genitourinary: Dysuria; No Frequency, No Incontinence, No Hematuria, No Retention, No Other Musculoskeletal: No other, No neck pain, No shoulder pain, No arm pain, No back pain, No hand pain; leg pain, foot pain Skin: No Rash, No Lesions, No Jaundice, No Bruising, No Other Objective Vitals Vital Signs Date Time Temp Pulse Resp B/P (MAP) Pulse Ox O2 Delivery O2 Flow Rate FiO2 03/21/24 05:00 98.2 73 18 96/45 (62) 98 98.2 03/20/24 20:00 Room Air* 0 21 Intake/Output Intake and Output 03/21/24 07:00 Intake Total 1070 ml Output Total 450 ml Balance 620 ml Intake Oral 1020 ml IV Total 50 ml Output Urine Total 450 ml # Voids 3 # Bowel Movements 1 Medications Current Medications Medications Dose Ordered Sig/Francoise Route Start Time Stop Time Status Last Admin Dose Admin Sodium Chloride 10 ml Q8HR IV 03/17/24 22:00 03/21/24 06:06 10 ML Acetaminophen 325 mg Q4HP PRN PO 03/17/24 21:45 Acetaminophen/ Hydrocodone Bitart 1 tab Q4HP PRN PO 03/17/24 21:45 03/18/24 21:37 1 TAB Ondansetron HCl 4 mg Q4HP PRN IV 03/17/24 21:45 Nitroglycerin 0.4 mg Q5MINP PRN SL 03/17/24 21:45 Morphine Sulfate 2 mg Q30M PRN IV 03/17/24 21:45 Diagnostic Test (Pha) 1 strip ACHS 03/17/24 22:00 03/21/24 06:06 1 STRIP Insulin Human Regular AC SC 03/18/24 07:00 03/20/24 17:00 4 UNITS Insulin Human Regular HS SC 03/17/24 22:00 03/20/24 21:25 8 UNITS Dextrose 50 ml UD PRN IV 03/17/24 21:45 Insulin Glargine 25 units QAM SC 03/18/24 07:00 03/21/24 06:10 25 UNITS Ceftriaxone Sodium 50 ml @ 100 mls/hr DAILY@09 IV 03/18/24 09:00 03/20/24 09:30 100 MLS/HR Furosemide 20 mg DAILY PO 03/20/24 10:00 03/20/24 09:48 20 MG Atorvastatin Calcium 20 mg HS PO 03/20/24 22:00 03/20/24 21:22 20 MG Amlodipine Besylate 10 mg DAILY PO 03/21/24 10:00 Laboratory Results Laboratory Tests 03/20/24 08:45 03/21/24 05:55 Chemistry Test 03/21/24 05:55 Calcium Level 8.5 mg/dL (8.7-10.4) L Urinalysis Test 03/17/24 23:03 Urine Color Light-yellow (Yellow) Urine Clarity Turbid (Clear) H Urine pH 6.0 (5.0-9.0) Urine Specific [place] 1.021 (1.001-1.035) Urine Protein 3+ (Negative) H Urine Ketones Negative (Negative) Urine Blood 2+ /uL (Negative) H Urine Nitrite Negative (Negative) Urine Bilirubin Negative (Negative) Urine Urobilinogen Normal mg/dL (Negative) Urine Leukocyte Esterase 2+ /uL (Negative) Urine RBC 7 /hpf (0 - 4) Urine WBC 97 /hpf (0 - 5) Urine Squamous Epithelial Cells Few /hpf (<5) Urine Bacteria Few /hpf (None Seen) H Urine Creatinine 44.48 mg/dL (30.0-125.0) Urine Protein/Creatinine Ratio 8.08 Urine Sodium 27 mmol/L (40-220) L Urine Glucose 4+ mg/dL (Normal) H Urine Total Protein 359.5 mg/dL (1-14) H Microbiology Microbiology Date/Time Source Procedure Growth Status 03/19/24 04:10 Voided Urine Urine Culture - Preliminary Resulted 03/18/24 14:07 Blood Blood Culture - Preliminary NO GROWTH AFTER 48 HOURS OF INCUBATION. 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: Nephrology consult appreciated, patient refused dialysis in the past Uncontrolled diabetes A1c more than 14: Diabetic education , insulin sliding scale, per granddaughter Pat at bedside patient was never diagnosed with diabetes in the past, we will start her on Lantus Diabetic neuropathy nephropathy vasculopathy Fluid overload: Lasix IV Acute urinary tract infection Atrophic left kidney Elevated D-dimer CT head negative DVT negative CT head negative Status post mechanical fall without injury Hypertension: Amlodipine Acute cardiorenal syndrome Acute on chronic congestive heart failure, Lasix IV converted to p.o. cardiology consult appreciated, no further cardiac workup Time spent 65 minutes Patient is full code D-dimer ordered Discussed about the diagnosis management and possible group home facility placement for better control of diabetes and IV antibiotics for urinary tract infection and IV Lasix for congestive heart failure with the patient's daughter Naida at bedside [phone]. She will discuss with the other siblings and let us know Advanced care planning time 20 minutes Plan discussed with: Patient My Orders Orders - GAB MOLINA MD Procedure Category Date Status Time Covid19 Antigen [facility] LAB 03/21/24 Verified Pt Request For Service PT 03/21/24 Verified 09:19 Date of Service: Mar 21, 2024 Billing Provider: GAB MOLINA MD Common Visit Codes: [id number] INP/OBS CARE(HIGH) Secondary Visit Codes: [id number] CARE PLAN 30 MINUTES GAB MOLINA MD Mar 21, 2024 09:24
[2024-03-21] MEDS: amLODIPine BESYLATE 5 MG TAB PO SCH (10:58)
--- NOTE | 2024-03-21 11:48 | DVHPN2 ---
Progress Note Date Seen: Mar 21, 2024 Resident Creating Document: JAMILAH ESCOBARGALEN RESIDENT Medical Necessity Reason Pt with a Central, PICC or Fol: No Subjective Review of Systems Patient is a 88-year-old female with a past medical history of hypertension, type 2 diabetes mellitus, chronic kidney disease, peripheral neuropathy was brought to the hospital after she was reported to fall in the restroom. Daughter reported that she was in the restroom and when she tried to stand up her leg gave out and she fell to the ground without hitting her head, no loss of consciousness but had bleeding from the right lower extremity. To laceration was noted on the right edwards which was sutured. Patient reported bilateral lower limb numbness and tingling with the last 6 months which has gotten worse over time. On admission patient's blood pressure 182/93 mmHg, blood sugar 695 mg/dl. Patient denied chest pain, shortness of breath, dizziness, diaphoresis, abdominal pain, nausea, vomiting, change in bowel bladder habits. Bilateral lower extremity Venous duplex showed no right or left femoropopliteal vein thrombosis. Chest x-ray shows pulmonary venous congestion and interstitial edema with suspected left sided pleural effusion Head CT without contrast showed no acute intracranial process Past Medical History: hypertension, type 2 diabetes mellitus, chronic kidney disease, peripheral neuropathy Past Surgical History: Hernia surgery Social History: Patient lives with family and denies smoking, alcohol, drug use Review of systems Patient seen and examined at the bedside. Patient is alert and oriented to time, place and person. Patient reports her right lower extremity pain has improved. Patient's blood pressure 148/46 mmHg, heart rate 75 per minute regular, SpO2 96 % on room air. Patient does not report any nausea or vomiting, abdominal pain, chest pain, shortness of breath Objective vital signs Vital Sign Date Time Temp Pulse Resp B/P (MAP) Pulse Ox O2 Delivery O2 Flow Rate FiO2 03/21/24 10:58 148/46 03/21/24 09:00 98.4 75 18 96 98.4 03/20/24 20:00 Room Air* 0 21 Total Intake and Output 03/20/24 03/20/24 03/21/24 15:00 23:00 07:00 Intake Total 350 ml 500 ml 220 ml Output Total 150 ml 300 ml Balance 350 ml 350 ml -80 ml medications Current Medications Medications Dose Ordered Sig/Francoise Route Start Time Stop Time Status Last Admin Dose Admin Sodium Chloride 10 ml Q8HR IV 03/17/24 22:00 03/21/24 06:06 10 ML Acetaminophen 325 mg Q4HP PRN PO 03/17/24 21:45 Acetaminophen/ Hydrocodone Bitart 1 tab Q4HP PRN PO 03/17/24 21:45 03/18/24 21:37 1 TAB Ondansetron HCl 4 mg Q4HP PRN IV 03/17/24 21:45 Nitroglycerin 0.4 mg Q5MINP PRN SL 03/17/24 21:45 Morphine Sulfate 2 mg Q30M PRN IV 03/17/24 21:45 Diagnostic Test (Pha) 1 strip ACHS 03/17/24 22:00 03/21/24 06:06 1 STRIP Insulin Human Regular AC SC 03/18/24 07:00 03/20/24 17:00 4 UNITS Insulin Human Regular HS SC 03/17/24 22:00 03/20/24 21:25 8 UNITS Dextrose 50 ml UD PRN IV 03/17/24 21:45 Insulin Glargine 25 units QAM SC 03/18/24 07:00 03/21/24 06:10 25 UNITS Ceftriaxone Sodium 50 ml @ 100 mls/hr DAILY@09 IV 03/18/24 09:00 03/21/24 10:58 100 MLS/HR Furosemide 20 mg DAILY PO 03/20/24 10:00 03/21/24 10:58 20 MG Atorvastatin Calcium 20 mg HS PO 03/20/24 22:00 03/20/24 21:22 20 MG Amlodipine Besylate 10 mg DAILY PO 03/21/24 10:00 03/21/24 10:58 10 MG Examination Physical Examination Gen - no pallor, no icterus, no cyanosis, no clubbing, no LAD, trace pedal edema Skin - Patients skin is warm and dry. HEENT - normocephalic, atraumatic, moist mucous membranes. Neck - full ROM, no LAD, no JVD Pulmonary - B/L vesicular breath sounds, no crackles, no wheezing, no stridor. cardiovascular - normal S1,S2 heard. RUSB systolic murmur heard. peripheral pulses normal radial 2+, pedal 1+. capillary refill normal <2 secs. GI - soft abdomen without tenderness to palpation . no hepatospleenomegaly. Bowel sounds + Neurological - Patient is A/O X 3 . Bilateral upper extremity strength 5/5, bilateral lower extremity strength 3/5, no facial droop, normal speech, no tremor, bilaterally decreased touch sensation in the lower extremities laboratory and microbiology Laboratory Tests 03/21/24 05:55 03/20/24 08:45 Test 03/21/24 05:55 Range/Units Serum Glucose 109 H 74-106 mg/dL Microbiology Date/Time Source Procedure Growth Status 03/19/24 04:10 Voided Urine Urine Culture - Preliminary Resulted 03/18/24 14:07 Blood Blood Culture - Preliminary NO GROWTH AFTER 48 HOURS OF INCUBATION. Resulted Problem List/Assessment/Plan Problem List/Assessment/Plan Assessment and plan # FARNAZ on CKD likely prerenal hemodynamically mediated - serum creatinine 2.52-> 2.32-->2.35--> 2.78-->2.67 - serum BUN 39-> 36->34--> 44-->51 - GFR 20 - urine creatinine 44.71 - urine sodium 27 - urine total protein 359.5 mg/dL - FENa- 1% - CXR showing pulmonary congestion and interstitial edema with left lower pleural effusion - currently on furosemide 20 mg p.o. once daily. Patient recommended to be on 20 mg IV furosemide daily. - avoid nephrotoxic medication - strict I&O - urine output 725 ml - continue on amlodipine 10 mg daily # 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 uncontrolled diabetes and diabetic nephropathy - patient's baseline GFR 20-25ml/min - urine total protein 359.5 mg/dL - urine glucose 4+ - renal ultrasound shows left renal atrophy with the lower left pole cyst measuring 2.7 cm - PTH elevated at 99.1 - HBA1c > 14% # uncontrolled diabetes mellitus with hyperglycemia - HbA1c > 14 %, blood glucose more than 500 with normal anion gap - patient on insulin Lantus 25 units and aggressive ISS # UTI likely acute complicated cystitis # status post mechanical fall # possible CHF Goals of care discussed with the patient and the family for over 20 minutes. Full code Plan discussed with Addendum Patient seen and examined, plan discussed with resident. Agree with above, we will follow closely Plan discussed with: Patient, Daughter My Orders My Orders Orders - NIKOLAI ESCOBAR RESIDENT Procedure Category Date Status Time Amlodipine Tablet PHA 03/21/24 In Process (Norvasc Tablet) 10:00 Chest Xray 1 View XY 03/21/24 Logged 11:33 Dietary Evaluation Review Comments: 1) Continue to monitor pt PO intake tp meet at least 75% of meals 2) Consider Prune Juice BID with meals 3) Continue current plan of care Expected Outcomes/Goals: F/U in 3-5 days NIKOLAI ESCOBAR Mar 21, 2024 11:48 COLIN CASTANO MD Mar 21, 2024 15:23
--- NOTE | 2024-03-21 14:54 | DVH ---
EXAM: XY CHEST XRAY 1 VIEW TECHNIQUE: Single frontal chest radiograph CLINICAL HISTORY: CKD pulmonary congestion COMPARISON: XY CHEST PORTABLE on DOS: 03/21/24, XY CHEST XRAY 1 VIEW on DOS: 03/19/24, XY CHEST PORTABL E on DOS: 03/18/24 Findings/Impression: Frontal chest radiograph demonstrates no acute osseous or superficial soft tissue abnormalities. The trachea is midline. The cardiac silhouette and mediastinum are within normal limits. No pneumothorax, pleural effusions, or consolidations.
[2024-03-22 01:00] VITALS: BP 152/68; PULSE 67; RESP 18; TEMP 98.3; O2SAT 97
[2024-03-22 05:00] VITALS: BP 166/71; PULSE 85; RESP 20; TEMP 98.2; O2SAT 97
--- NOTE | 2024-03-22 08:28 | DVHPN2 ---
Reviewed: Care Plan, H&P, Labs, Medications, Previous Orders, Radiology Changes from previous H/P or p: No Changes Eyes: No Pain, No Vision change, No Conjunctivae inflammation, No Eyelid inflammation, No Other, No Redness ENT: No Ear pain, No Ear discharge, No Nose pain, No Nose discharge, No Nose congestion, No Mouth pain, No Mouth swelling, No Throat pain, No Throat swelling, No Other Cardiovascular: No Chest Pain, No Palpitations, No Orthopnea, No Paroxysmal Noc. Dyspnea, No Edema, No Lt Headedness, No Other Respiratory: No Cough, No Dry, No Shortness of breath, No SOB with excertion, No Wheezing, No Hemoptysis, No Pleuritic Pain, No Sputum, No Other Gastrointestinal: No Nausea, No Vomiting, No Abdominal Pain, No Diarrhea, No Constipation, No Melena, No Hematochezia, No Other Genitourinary: Dysuria; No Frequency, No Incontinence, No Hematuria, No Retention, No Other Musculoskeletal: No other, No neck pain, No shoulder pain, No arm pain, No back pain, No hand pain; leg pain, foot pain Skin: No Rash, No Lesions, No Jaundice, No Bruising, No Other Objective Vitals Vital Signs Date Time Temp Pulse Resp B/P (MAP) Pulse Ox O2 Delivery O2 Flow Rate FiO2 03/22/24 05:00 98.2 85 20 166/71 (102) 97 98.2 03/21/24 20:00 Room Air* 0 21 Intake/Output Intake and Output 03/22/24 07:00 Intake Total 1560 ml Output Total 650 ml Balance 910 ml Intake Oral 1560 ml Output Urine Total 650 ml # Voids 3 Medications Current Medications Medications Dose Ordered Sig/Francoise Route Start Time Stop Time Status Last Admin Dose Admin Sodium Chloride 10 ml Q8HR IV 03/17/24 22:00 03/22/24 06:22 10 ML Acetaminophen 325 mg Q4HP PRN PO 03/17/24 21:45 Acetaminophen/ Hydrocodone Bitart 1 tab Q4HP PRN PO 03/17/24 21:45 03/21/24 12:24 1 TAB Ondansetron HCl 4 mg Q4HP PRN IV 03/17/24 21:45 Nitroglycerin 0.4 mg Q5MINP PRN SL 03/17/24 21:45 Morphine Sulfate 2 mg Q30M PRN IV 03/17/24 21:45 Diagnostic Test (Pha) 1 strip ACHS 03/17/24 22:00 03/22/24 06:20 1 STRIP Insulin Human Regular AC SC 03/18/24 07:00 03/22/24 06:22 2 UNITS Insulin Human Regular HS SC 03/17/24 22:00 03/21/24 21:28 4 UNITS Dextrose 50 ml UD PRN IV 03/17/24 21:45 Insulin Glargine 25 units QAM SC 03/18/24 07:00 03/22/24 06:21 25 UNITS Ceftriaxone Sodium 50 ml @ 100 mls/hr DAILY@09 IV 03/18/24 09:00 03/21/24 10:58 100 MLS/HR Furosemide 20 mg DAILY PO 03/20/24 10:00 03/21/24 10:58 20 MG Atorvastatin Calcium 20 mg HS PO 03/20/24 22:00 03/21/24 21:24 20 MG Amlodipine Besylate 10 mg DAILY PO 03/21/24 10:00 03/21/24 10:58 10 MG Laboratory Results Laboratory Tests 03/20/24 08:45 03/21/24 05:55 Urinalysis Test 03/17/24 23:03 Urine Color Light-yellow (Yellow) Urine Clarity Turbid (Clear) H Urine pH 6.0 (5.0-9.0) Urine Specific [place] 1.021 (1.001-1.035) Urine Protein 3+ (Negative) H Urine Ketones Negative (Negative) Urine Blood 2+ /uL (Negative) H Urine Nitrite Negative (Negative) Urine Bilirubin Negative (Negative) Urine Urobilinogen Normal mg/dL (Negative) Urine Leukocyte Esterase 2+ /uL (Negative) Urine RBC 7 /hpf (0 - 4) Urine WBC 97 /hpf (0 - 5) Urine Squamous Epithelial Cells Few /hpf (<5) Urine Bacteria Few /hpf (None Seen) H Urine Creatinine 44.48 mg/dL (30.0-125.0) Urine Protein/Creatinine Ratio 8.08 Urine Sodium 27 mmol/L (40-220) L Urine Glucose 4+ mg/dL (Normal) H Urine Total Protein 359.5 mg/dL (1-14) H Microbiology Microbiology Date/Time Source Procedure Growth Status 03/19/24 04:10 Voided Urine Urine Culture - Final Complete 03/18/24 14:07 Blood Blood Culture - Preliminary NO GROWTH AFTER 72 HOURS OF INCUBATION. 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: Nephrology consult appreciated, patient refused dialysis in the past Uncontrolled diabetes A1c more than 14: Diabetic education , insulin sliding scale, per granddaughter Pat at bedside patient was never diagnosed with diabetes in the past, we will start her on Lantus Diabetic neuropathy nephropathy vasculopathy Fluid overload: Lasix IV Acute urinary tract infection Atrophic left kidney Elevated D-dimer PE ruled out DVT negative CT head negative Status post mechanical fall without injury Hypertension: Amlodipine Acute cardiorenal syndrome Acute on chronic congestive heart failure, Lasix IV converted to p.o. cardiology consult appreciated, no further cardiac workup Time spent 65 minutes Patient is full code Discussed about the diagnosis management and possible [facility] facility placement for better control of diabetes and IV antibiotics for urinary tract infection and IV Lasix for congestive heart failure with the patient's daughter Naida at bedside [phone]. She has agreed for [facility] facility placement Advanced care planning time 20 minutes Plan discussed with: Patient, Daughter My Orders Orders - GAB MOLINA MD Procedure Category Date Status Time Covid19 Antigen [place] LAB 03/21/24 Logged Pt Request For Service PT 03/21/24 Logged 09:19 * Cardiology Technologist CONS 03/21/24 Transmitted Consult Date of Service: Mar 22, 2024 Billing Provider: GAB MOLINA MD Common Visit Codes: [id number] INP/OBS CARE(HIGH) GAB MOLINA MD Mar 22, 2024 08:28
--- NOTE | 2024-03-22 08:36 | DVHDS2 ---
Discharge Summary Date of Admission Mar 17, 2024 at 21:37 Date of Discharge: Mar 22, 2024 Admitting Diagnosis Altered mental status Wounds: None Labs/Diagnostic Data: Laboratory Results Test 03/22/24 06:05 03/21/24 05:55 03/20/24 08:45 03/19/24 10:18 POC Glucose 146 mg/dl (70-106) Sodium Level 144 mmol/L (136-145) Potassium Level 4.0 mmol/L (3.5-5.1) Chloride Level 113 mmol/L (98-107) Carbon Dioxide Level 24 mmol/L (20-31) Anion Gap 7 (5-15) Blood Urea Nitrogen 51 mg/dL (9-23) Creatinine 2.67 mg/dL (0.550-1.02) Glomerular Filtration Rate Calc 17 mL/min (>90) BUN/Creatinine Ratio 19.1 (10.0-20.0) Serum Glucose 109 mg/dL (74-106) Calcium Level 8.5 mg/dL (8.7-10.4) Creatine Kinase 109 U/L (34-145) White Blood Count 9.7 10^3/uL (4.4-10.8) Red Blood Count 3.07 10^6/uL (4.0-5.20) Hemoglobin 9.6 g/dL (12.2-16.2) Hematocrit 28.5 % (36.0-46.0) Mean Corpuscular Volume 92.7 fL (80.0-100.0) Mean Corpuscular Hemoglobin 31.3 pg (28.0-32.0) Mean Corpuscular Hemoglobin Concent 33.7 g/dL (32.0-36.0) Red Cell Distribution Width 15.3 % (11.8-14.3) Platelet Count 112 10^3/uL (140-450) Mean Platelet Volume 9.3 fL (6.9-10.8) Neutrophils (%) (Auto) 63.5 % (37.0-80.0) Lymphocytes (%) (Auto) 24.7 % (10.0-50.0) Monocytes (%) (Auto) 8.2 % (0.0-12.0) Eosinophils (%) (Auto) 2.7 % (0.0-7.0) Basophils (%) (Auto) 0.9 % (0.0-2.0) Neutrophils # (Auto) 6.1 10 ^3/uL (1.6-8.6) Lymphocytes # (Auto) 2.4 10 ^3/uL (0.4-5.4) Monocytes # (Auto) 0.8 10 ^3/uL (0-1.3) Eosinophils # (Auto) 0.3 10 ^3/uL (0-0.8) Basophils # (Auto) 0.1 10 ^3/uL (0-0.2) Nucleated Red Blood Cells 0.1 % Prothrombin Time 12.1 sec (9.3-11.8) Prothrombin Time INR 1.15 (0.9-1.15) Activated Partial Thromboplast Time 22.8 SEC (24.5-34.5) D-Dimer, Quantitative 8.54 mg/L FEU (0.0-0.49) Test 03/19/24 05:22 03/18/24 05:18 03/17/24 23:03 03/17/24 17:27 Phosphorus Level 3.3 mg/dL (2.4-5.1) Magnesium Level 2.0 mg/dL (1.6-2.6) Total Bilirubin 0.6 mg/dL (0.2-1.0) Aspartate Amino Transferase (AST) 32 U/L (13-40) Alanine Aminotransferase (ALT) 19 U/L (7-40) Alkaline Phosphatase 101 U/L (46-116) Total Protein 4.7 g/dL (5.7-8.2) Albumin 2.9 g/dL (3.2-4.8) Vitamin B12 Level 905 pg/mL (211-911) Vitamin D 25-Hydroxy 28.6 ng/mL (30.0-100) Hemoglobin A1c > 14.0 % A1C (<5.7) B-Type Natriuretic Peptide 363.99 pg/mL (0-100) Thyroid Stimulating Hormone (TSH) 3.54 uIU/mL (0.55-4.78) Parathyroid Hormone (Intact) 99.1 pg/mL (18.4-80.1) Urine Color Light-yellow (Yellow) Urine Clarity Turbid (Clear) Urine pH 6.0 (5.0-9.0) Urine Specific Festus 1.021 (1.001-1.035) Urine Protein 3+ (Negative) Urine Ketones Negative (Negative) Urine Blood 2+ /uL (Negative) Urine Nitrite Negative (Negative) Urine Bilirubin Negative (Negative) Urine Urobilinogen Normal mg/dL (Negative) Urine Leukocyte Esterase 2+ /uL (Negative) Urine RBC 7 /hpf (0 - 4) Urine WBC 97 /hpf (0 - 5) Urine Squamous Epithelial Cells Few /hpf (<5) Urine Bacteria Few /hpf (None Seen) Urine Creatinine 44.48 mg/dL (30.0-125.0) Urine Protein/Creatinine Ratio 8.08 Urine Sodium 27 mmol/L (40-220) Urine Glucose 4+ mg/dL (Normal) Urine Total Protein 359.5 mg/dL (1-14) Beta-Hydroxybutyric Acid 0.186 mmol/L (< 0.4) Other Laboratory Tests 03/21/24 05:55 03/20/24 08:45 Brief Hx & Hospital Course: 88-year-old female with a poor medical care noncompliance came to the ER for altered mental status and confusion admitted found to have sepsis secondary to urinary tract infection treated with Rocephin blood cultures negative urine cultures negative. Patient had uncontrolled diabetes with A1c more than 14 and blood sugar of 695 at the time of admission. Patient has a new diagnosis of type 2 diabetes placed on regular insulin and Lantus and the blood sugars are now under control in the range of 150. Patient also was found to have full code overload and treated with Lasix. 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 Patient refused dialysis and the family agreed with the patient. Elevated D-dimer. PE ruled out DVT ruled out CT head negative she had a fall at home without any injury. The patient has hypotension with cardiorenal syndrome and congestive heart failure. No further cardiac workup and patient being discharged to care home facility to receive IV antibiotics for two weeks and for better control of new onset uncontrolled diabetes. Discussed with the plan with the patient in [place] in the presence of her daughter Leeann who agreed with the plan, Consults/Reason for consult Cardiology Nephrology Operations or Procedures CT head Condition at Discharge: Fair Final Diagnosis/Problems List Sepsis secondary to urinary tract infection: Blood cultures negative urine cultures pending, continue Rocephin FARNAZ on CKD 4: Nephrology consult appreciated, patient refused dialysis in the past Uncontrolled diabetes A1c more than 14: Diabetic education , insulin sliding scale, per granddaughter Pat at bedside patient was never diagnosed with diabetes in the past, we will start her on Lantus Diabetic neuropathy nephropathy vasculopathy Fluid overload: Lasix IV Acute urinary tract infection Atrophic left kidney Elevated D-dimer PE ruled out DVT negative CT head negative Status post mechanical fall without injury Hypertension: Amlodipine Acute cardiorenal syndrome Acute on chronic congestive heart failure, Lasix IV converted to p.o. cardiology consult appreciated, no further cardiac workup Discharge Disposition: [facility] Facility Discharge Instruct/Medications Diet: Consistent carbohydrate Activity: Light activity Medications: see lst 40 (Time taken for discharge summary 40 minutes) Discharge Statement: "Patient was advised to return to the ER or call 911 if any headaches, dizziness, shortness of breath, chest pain, abdominal pain, bleeding, fevers, or worsening of medical condition. Patient was counseled about treatment plan, medications, possible side effects, patientverbalized understanding. All questions were answered to the best of my ability. This discharge took greater then 30 minutes in planning, reviewing documentation, counseling the patient, and discussing with other team members." ASSESSMENT ASSESSMENT Hospital Course Improved Assessment Sepsis secondary to urinary tract infection: Blood cultures negative urine cultures pending, continue Rocephin FARNAZ on CKD 4: Nephrology consult appreciated, patient refused dialysis in the past Uncontrolled diabetes A1c more than 14: Diabetic education , insulin sliding scale, per granddaughter Pat at bedside patient was never diagnosed with diabetes in the past, we will start her on Lantus Diabetic neuropathy nephropathy vasculopathy Fluid overload: Lasix IV Acute urinary tract infection Atrophic left kidney Elevated D-dimer PE ruled out DVT negative CT head negative Status post mechanical fall without injury Hypertension: Amlodipine Acute cardiorenal syndrome Acute on chronic congestive heart failure, Lasix IV converted to p.o. cardiology consult appreciated, no further cardiac workup Date of Service: Mar 22, 2024 Billing Provider: GAB MOLINA MD Common Visit Codes: 95549-GLC/OBS DISCH DAY >30min GAB MOLINA MD Mar 22, 2024 08:36
[2024-03-22 08:40] VITALS: BP 134/49; PULSE 95; RESP 16; TEMP 98.1; O2SAT 95
[2024-03-22 10:27] LABS: Basophils # (auto) 0 10 ^3/uL (0-0.2); Basophils % (auto) 0.4 % (0.0-2.0); Eosinophils # (auto) 0.2 10 ^3/uL (0-0.8); Eosinophils % (auto) 2.6 % (0.0-7.0); Hematocrit 26.2 % (36.0-46.0); Hemoglobin 9.2 g/dL (12.2-16.2); Lymphocytes # (auto) 1.1 10 ^3/uL (0.4-5.4); Lymphocytes % (auto) 14.4 % (10.0-50.0); Mean Corpuscular Hemoglobin 32.8 pg (28.0-32.0); Mean Corpuscular Hgb Conc. 35.2 g/dL (32.0-36.0); Mean Corpuscular Volume 93.1 fL (80.0-100.0); Monocytes # (auto) 0.6 10 ^3/uL (0-1.3); Monocytes % (auto) 8.5 % (0.0-12.0); Neutrophils # (auto) 5.6 10 ^3/uL (1.6-8.6); Neutrophils % (auto) 74.1 % (37.0-80.0); Platelet Count (auto) 149 10^3/uL (140-450); Red Blood Cells 2.82 10^6/uL (4.0-5.20); Red Cell Distribution Width 15.6 % (11.8-14.3); White Blood Cell 7.6 10^3/uL (4.4-10.8)
[2024-03-22 10:37] LABS: Anion Gap 6 (5-15); Carbon Dioxide 26 mmol/L (20-31); Chloride 109 mmol/L (98-107); Sodium 141 mmol/L (136-145)
[2024-03-22 10:38] LABS: Calcium 8.5 mg/dL (8.7-10.4)
[2024-03-22 10:43] LABS: Blood Urea Nitrogen 57 mg/dL (9-23); Glucose 167 mg/dL (74-106)
--- NOTE | 2024-03-22 12:27 | DVHPN2 ---
Progress Note Date Seen: Mar 22, 2024 Resident Creating Document: JHRocioJIVONE CentenoSARABORA RESIDENT Medical Necessity Reason Pt with a Central, PICC or Fol: No Subjective Review of Systems Patient is a 88-year-old female with a past medical history of hypertension, type 2 diabetes mellitus, chronic kidney disease, peripheral neuropathy was brought to the hospital after she was reported to fall in the restroom. Daughter reported that she was in the restroom and when she tried to stand up her leg gave out and she fell to the ground without hitting her head, no loss of consciousness but had bleeding from the right lower extremity. To laceration was noted on the right edwards which was sutured. Patient reported bilateral lower limb numbness and tingling with the last 6 months which has gotten worse over time. On admission patient's blood pressure 182/93 mmHg, blood sugar 695 mg/dl. Patient denied chest pain, shortness of breath, dizziness, diaphoresis, abdominal pain, nausea, vomiting, change in bowel bladder habits. Bilateral lower extremity Venous duplex showed no right or left femoropopliteal vein thrombosis. Chest x-ray shows pulmonary venous congestion and interstitial edema with suspected left sided pleural effusion Head CT without contrast showed no acute intracranial process Past Medical History: hypertension, type 2 diabetes mellitus, chronic kidney disease, peripheral neuropathy Past Surgical History: Hernia surgery Social History: Patient lives with family and denies smoking, alcohol, drug use Review of systems Patient seen and examined at the bedside. Patient is alert and oriented to time, place and person. Patient reports her right lower extremity pain has improved. Patient's blood pressure 148/46 mmHg, heart rate 75 per minute regular, SpO2 96 % on room air. Patient does not report any nausea or vomiting, abdominal pain, chest pain, shortness of breath Other Systems: Patient seen and examined by myself with the medicine resident round I agree with the assessment and plan asdocumented in his note Objective vital signs Vital Sign Date Time Temp Pulse Resp B/P (MAP) Pulse Ox O2 Delivery O2 Flow Rate FiO2 03/22/24 09:21 134/49 03/22/24 08:40 98.1 95 16 95 98.1 03/21/24 20:00 Room Air* 0 21 Total Intake and Output 03/21/24 03/21/24 03/22/24 15:00 23:00 07:00 Intake Total 530 ml 1080 ml 0 ml Output Total 450 ml 200 ml Balance 530 ml 630 ml -200 ml medications Current Medications Medications Dose Ordered Sig/Francoise Route Start Time Stop Time Status Last Admin Dose Admin Sodium Chloride 10 ml Q8HR IV 03/17/24 22:00 03/22/24 06:22 10 ML Acetaminophen 325 mg Q4HP PRN PO 03/17/24 21:45 Acetaminophen/ Hydrocodone Bitart 1 tab Q4HP PRN PO 03/17/24 21:45 03/22/24 10:57 1 TAB Ondansetron HCl 4 mg Q4HP PRN IV 03/17/24 21:45 Nitroglycerin 0.4 mg Q5MINP PRN SL 03/17/24 21:45 Morphine Sulfate 2 mg Q30M PRN IV 03/17/24 21:45 Diagnostic Test (Pha) 1 strip ACHS 03/17/24 22:00 03/22/24 11:53 1 STRIP Insulin Human Regular AC SC 03/18/24 07:00 03/22/24 11:51 4 UNITS Insulin Human Regular HS SC 03/17/24 22:00 03/21/24 21:28 4 UNITS Dextrose 50 ml UD PRN IV 03/17/24 21:45 Insulin Glargine 25 units QAM SC 03/18/24 07:00 03/22/24 06:21 25 UNITS Ceftriaxone Sodium 50 ml @ 100 mls/hr DAILY@09 IV 03/18/24 09:00 03/22/24 09:18 100 MLS/HR Furosemide 20 mg DAILY PO 03/20/24 10:00 03/22/24 09:21 20 MG Atorvastatin Calcium 20 mg HS PO 03/20/24 22:00 03/21/24 21:24 20 MG Amlodipine Besylate 10 mg DAILY PO 03/21/24 10:00 03/22/24 09:21 10 MG Examination Physical Examination Gen - no pallor, no icterus, no cyanosis, no clubbing, no LAD, trace pedal edema Skin - Patients skin is warm and dry. HEENT - normocephalic, atraumatic, moist mucous membranes. Neck - full ROM, no LAD, no JVD Pulmonary - B/L vesicular breath sounds, no crackles, no wheezing, no stridor. cardiovascular - normal S1,S2 heard. RUSB systolic murmur heard. peripheral pulses normal radial 2+, pedal 1+. capillary refill normal <2 secs. GI - soft abdomen without tenderness to palpation . no hepatospleenomegaly. Bowel sounds + Neurological - Patient is A/O X 3 . Bilateral upper extremity strength 5/5, bilateral lower extremity strength 3/5, no facial droop, normal speech, no tremor, bilaterally decreased touch sensation in the lower extremities laboratory and microbiology Laboratory Tests 03/22/24 09:50 Test 03/22/24 09:50 Range/Units Serum Glucose 167 H 74-106 mg/dL Microbiology Date/Time Source Procedure Growth Status 03/19/24 04:10 Voided Urine Urine Culture - Final Complete 03/18/24 14:07 Blood Blood Culture - Preliminary NO GROWTH AFTER 72 HOURS OF INCUBATION. Resulted Problem List/Assessment/Plan Problem List/Assessment/Plan Assessment and plan # FARNAZ on CKD likely prerenal hemodynamically mediated - serum creatinine 2.52-> 2.32-->2.35--> 2.78-->2.67-->2.85 - serum BUN 39-> 36->34--> 44-->51-->57 - GFR 20--->16 - urine creatinine 44.71 - urine sodium 27 - urine total protein 359.5 mg/dL - FENa- 1% - CXR showing pulmonary congestion and interstitial edema with left lower pleural effusion - currently on furosemide 20 mg p.o. once daily. Patient recommended to be on 20 mg IV furosemide daily. - avoid nephrotoxic medication - strict I&O - urine output 650ml - continue on amlodipine 10 mg daily # 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 uncontrolled diabetes and diabetic nephropathy - patient's baseline GFR 20-25ml/min - urine total protein 359.5 mg/dL - urine glucose 4+ - renal ultrasound shows left renal atrophy with the lower left pole cyst measuring 2.7 cm - PTH elevated at 99.1 - HBA1c > 14% # uncontrolled diabetes mellitus with hyperglycemia - HbA1c > 14 %, blood glucose more than 500 with normal anion gap - patient on insulin Lantus 25 units and aggressive ISS # UTI likely acute complicated cystitis # status post mechanical fall # possible CHF Patient has a CKD stage 4 likely due to longstanding uncontrolled diabetes with current GFR of 16. With the last 24 hours patient had 650 mL of urine output. Patient was advised to be discharged with instructions of fluid restriction, renal diet and advised to discharge on furosemide 40 mg p.o. q.d. patient is advised to follow up with the Nephrology in the outpatient for further workup of her CKD. Goals of care discussed with the patient and the family for over 20 minutes. Full code Plan discussed with Plan discussed with: Patient Dietary Evaluation Review Comments: 1) Continue to monitor pt PO intake tp meet at least 75% of meals 2) Consider Prune Juice BID with meals 3) Continue current plan of care Expected Outcomes/Goals: F/U in 3-5 days NIKOLAI ESCOBAR Mar 22, 2024 12:27 JAN PARRA MD Mar 22, 2024 16:24
[2024-03-22 13:00] VITALS: BP 123/58; PULSE 89; RESP 16; TEMP 98; O2SAT 92
[2024-03-22] MEDS: INFLUENZA TRIVALENT 2024-2025 0.5 ML INJ IM ONE (14:04)
[2024-03-22 17:00] VITALS: BP 125/87; PULSE 83; RESP 16; TEMP 98.3; O2SAT 95
[2024-03-22 17:03] VITALS: BP 143/57; PULSE 77; RESP 16; TEMP 98.3; O2SAT 96
== END 2024-03-22 16:50 | DRG 637 ==
LOC: EDSEX 16:33 → EDBD 16:33 → ER 16:33 → OVERFLOW 21:37 → CENTRAL 03-18 18:35
PROVIDERS: ATTEND Family Medicine
PROC: 0QQ Lower Bones, Repair (ICD-10-PCS; principal; 2024-03-17)
PROC: 0QQ Lower Bones, Repair (ICD-10-PCS; 2024-03-17)
PROC: 05HC33Z Insertion of Infusion Device into Left Basilic Vein, Percutaneous Approach (ICD-10-PCS; 2024-03-22)
PROC: B54NZZA Ultrasonography of Left Upper Extremity Veins, Guidance (ICD-10-PCS; 2024-03-22)
DX: E11.65 Type 2 diabetes mellitus with hyperglycemia (principal); I50.33 Acute on chronic diastolic (congestive) heart failure; N17.0 Acute kidney failure with tubular necrosis; N30.00 Acute cystitis without hematuria; N18.4 Chronic kidney disease, stage 4 (severe); I13.0 Hypertensive heart and chronic kidney disease with heart failure and stage 1 through stage 4 chronic kidney disease, or unspecified chronic kidney disease; E44.1 Mild protein-calorie malnutrition; S81.811A Laceration without foreign body, right lower leg, initial encounter; F03.90 Unspecified dementia, unspecified severity, without behavioral disturbance, psychotic disturbance, mood disturbance, and anxiety; I16.0 Hypertensive urgency; M10.9 Gout, unspecified; E11.42 Type 2 diabetes mellitus with diabetic polyneuropathy; X58.XXXA Exposure to other specified factors, initial encounter; E78.5 Hyperlipidemia, unspecified; E11.40 Type 2 diabetes mellitus with diabetic neuropathy, unspecified; E11.22 Type 2 diabetes mellitus with diabetic chronic kidney disease; D69.6 Thrombocytopenia, unspecified; Z91.158 Patient's noncompliance with renal dialysis for other reason; Z83.3 Family history of diabetes mellitus; Z82.49 Family history of ischemic heart disease and other diseases of the circulatory system; Z79.899 Other long term (current) drug therapy; Z79.84 Long term (current) use of oral hypoglycemic drugs; Z79.4 Long term (current) use of insulin; Z88.6 Allergy status to analgesic agent; Z90.49 Acquired absence of other specified parts of digestive tract; Y93.89 Activity, other specified; Y92.89 Other specified places as the place of occurrence of the external cause; Y99.8 Other external cause status; Z68.31 Body mass index [BMI] 31.0-31.9, adult
CPT/HCPCS: 12034; 36415; 36600; 70450; 71045; 76775; 78582; 80048; 80053; 81001; 82010; 82306; 82550; 82570; 82607; 82805; 82962; 83036; 83735; 83880; 83970; 84100; 84156; 84300; 84443; 85025; 85379; 85610; 85730; 87040; 87086; 90656; 93005; 93306; 93970; 97110; 97116; 97163; 97530; G0378; J1815

== ENCOUNTER 2024-05-12 15:46 | Inpatient (IN) | payer MEDICARE, MEDICAID ==
[~2024-05-12] VITALS: Ht 160 cm; Wt 88.9 kg
[~2024-05-12 15:46] MED LIST changes: +ALLO100T PO; +AMLO1TAB23 PO; -BENA20TA12 PO; -CEPH250C PO; +FERR325T20 PO; +GLIP5TAB21 PO; -LEVO750T40 PO; +LOSA-534 PO; +METF-370 PO; +MUPI2OIN2 EX
--- NOTE | 2024-05-12 15:53 | ED.PDOC ---
History of Present Illness HPI Comments 89Y F with PMHx DM, HTN, HLD, CKD, anemia, and dementia presents to ED via EMS for chief complaint fatigue and weakness. Per EMS, pt's family became concerned as weakness has worsened. Pt has declined to take medications at home (Lasix, Amlodipine, insulin) and has refused to eat. Upon EMS arrival, O2sat was 72%. Pt was then placed on 15L NR and SpO2 increased to 100%. BS was 248 with EMS. Time Seen by MD: 15:42 Primary Care Provider: PT DOES NOT KNOW Reviewed Notes: Nurses Notes, Frame Bander Notes, Medications, Allergies Allergies: Coded Allergies: Aspirin (Unverified Allergy, Unknown, 08/23/20) Celecoxib (Verified Adverse Reaction, Severe, WEAKNESS, 04/05/11) Home Meds Reported Medications Ferrous Sulfate (Ferosul) 325 Mg Tab, 325 MG PO BID, TAB 03/19/24 Glipizide (Glipizide) 5 Mg Tab, 5 MG PO BIDAC for 30 Days, MG 03/19/24 Atorvastatin Calcium (Lipitor) 20 Mg Tab, 1 TAB PO DAILY, #90 TAB 1 Refill 03/19/24 Furosemide (Furosemide) 40 Mg Tab, 1 TAB PO DAILY for 30 Days, #30 03/19/24 Allopurinol (Allopurinol) 100 Mg Tab, 100 MG PO TID for 30 Days, MG 03/19/24 Losartan Potassium (Losartan Potassium) 50 Mg Tab, 50 MG PO DAILY, MG 03/19/24 Linagliptin Base (TRADJENTA) 5 Mg Tab, 5 MG PO DAILY for 90 Days 10/06/20 Information Source: Patient, Emergency Med Personnel Mode of Arrival: EMS Severity: Moderate Timing: Days Duration: Since onset Prehospital treatment: None Past Medical History PAST MEDICAL HISTORY: Anemia, CKF, Dementia, DM, High Lipids, HTN Surgical History: Cholecystectomy, Hernia Repair EDUCATIONAL 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 TEACHER History: Denies all EDUCATIONAL PSYCHOLOGY TEACHER Hx Family History Family History: Reviewed,noncontributory to illness Social History Smoker: Non-Smoker Alcohol: Denies ETOH Use Drugs: Denies Drug Use Lives In: Home Constitutional: reports: fatigue, weakness; denies: chills, diaphoresis, fever, malaise, sweats, others EENTM: denies: blurred vision, double vision, ear bleeding, ear discharge, ear drainage, ear pain, ear ringing, eye pain, eye redness, hearing loss, mouth pain, mouth swelling, nasal discharge, nose bleeding, nose congestion, nose pain, photophobia, tearing, throat pain, throat swelling, voice changes, others Respiratory: denies: cough, hemoptysis, orthopnea, SOB at rest, shortness of breath, SOB with excertion, stridor, wheezing, others Cardiovascular: denies: chest pain, dizzy spells, diaphoresis, Dyspnea on exertion, edema, irregular heart beat, left arm pain, lightheadedness, palpitations, PND, syncope, others Gastrointestinal: denies: abdomen distended, abdominal pain, blood streaked bowels, constipated, diarrhea, dysphagia, difficulty swallowing, hematemesis, melena, nausea, poor appetite, poor fluid intake, rectal bleeding, rectal pain, vomiting, others Genitourinary: denies: abnormal vagina bleeding, burning, dyspareunia, dysuria, flank pain, frequency, hematuria, incontinence, pain, , vagina discharge, urgency, others Neurological: denies: dizziness, fainting, headache, left sided numbness, left sided weakness, numbness, paresthesia, pre-existing deficit, right sided numbness, right sided weakness, seizure, speech problems, tingling, tremors, weakness, others Musculoskeletal: denies: back pain, gout, joint pain, joint swelling, muscle pain, muscle stiffness, neck pain, others Integumetry: denies: bruises, change in color, change in hair/nails, dryness, laceration, lesions, lumps, rash, wounds, others Allergic/Immunocompromised: denies: Difficulty Healing, Frequent Infections, Hives, Itching, others Hematologic/Lymphatic: denies: anemia, blood clots, easy bleeding, easy bruising, swollen glands, others Endocrine: denies: excessive hunger, excessive sweating, excessive thirst, excessive urination, flushing, intolerance to cold, intolerance to heat, unexplained weight gain, unexplained weight loss, others Psychiatric: denies: anxiety, bipolar disorder, depression, hopeless, panic disorder, schizophrenia, sleepless, suicidal, others All Other Systems: Reviewed and Negative Physical Exam General Appearance: No Apparent Distress, Normal HEENT: Normal ENT Inspection, Pharynx Normal, TMs Normal Neck: Full Range of Motion, Non-Tender, Normal, Normal Inspection Respiratory: Chest Non-Tender, Lungs Clear, No Accessory Muscle Use, No Respiratory Distress, Normal Breath Sounds Cardiovascular: No Edema, No JVD, No Murmur, No Gallop, Normal Peripheral Pulses, Regular Rate/Rhythm Breast Exam: Deferred Gastrointestinal: No Organomegaly, Non Tender, No Pulsatile Mass, Normal Bowel Sounds, Soft Genitalia: Deferred Pelvic: Deferred Rectal: Deferred Extremities: No calf tenderness, Normal capillary refill, Normal inspection, Normal range of motion, Non-tender, No pedal edema Musculoskeletal : Apperance: Normal Neurologic: Alert, armature tester II-XII nml as Tested, No Motor Deficits, Normal Affect, Normal Mood, No Sensory Deficits Cerebellar Function: NOT DONE Reflexes: NOT DONE Skin: Dry, Normal Color, Warm Lymphatic: No Adenopathy Was a procedure done? Was a procedure done?: No Differential Dx Considerations may include: ACS, CVA, electrolyte abnormalities, infectious etiology X-Ray, Labs, Meds, VS Vital Signs Date Time Temp Pulse Resp B/P (MAP) Pulse Ox O2 Delivery O2 Flow Rate FiO2 05/12/24 16:09 97.5 74 20 151/64 (93) 95 Lab Test 05/12/24 16:12 Range/Units White Blood Count 5.3 4.4-10.8 10^3/uL Red Blood Count 3.46 L 4.0-5.20 10^6/uL Hemoglobin 9.5 L 12.2-16.2 g/dL Hematocrit 30.9 L 36.0-46.0 % Mean Corpuscular Volume 89.4 80.0-100.0 fL Mean Corpuscular Hemoglobin 27.4 L 28.0-32.0 pg Mean Corpuscular Hemoglobin Concent 30.7 L 32.0-36.0 g/dL Red Cell Distribution Width 16.5 H 11.8-14.3 % Platelet Count 175 140-450 10^3/uL Mean Platelet Volume 7.8 6.9-10.8 fL Neutrophils (%) (Auto) 73.1 37.0-80.0 % Lymphocytes (%) (Auto) 18.0 10.0-50.0 % Monocytes (%) (Auto) 7.5 0.0-12.0 % Eosinophils (%) (Auto) 0.7 0.0-7.0 % Basophils (%) (Auto) 0.7 0.0-2.0 % Neutrophils # (Auto) 3.9 1.6-8.6 10 ^3/uL Lymphocytes # (Auto) 0.9 0.4-5.4 10 ^3/uL Monocytes # (Auto) 0.4 0-1.3 10 ^3/uL Eosinophils # (Auto) 0 0-0.8 10 ^3/uL Basophils # (Auto) 0 0-0.2 10 ^3/uL Nucleated Red Blood Cells 0.3 % Sodium Level 136 136-145 mmol/L Potassium Level 5.7 *H 3.5-5.1 mmol/L Chloride Level 106 98-107 mmol/L Carbon Dioxide Level 21 20-31 mmol/L Anion Gap 9 5-15 Blood Urea Nitrogen 91 *H 9-23 mg/dL Creatinine 4.56 H 0.550-1.02 mg/dL Glomerular Filtration Rate Calc 9 >90 mL/min BUN/Creatinine Ratio 20.0 10.0-20.0 Serum Glucose 247 H 74-106 mg/dL Lactic Acid Level 1.2 0.4-2.0 mmol/L Calcium Level 9.0 8.7-10.4 mg/dL Total Bilirubin 0.3 0.2-1.0 mg/dL Aspartate Amino Transferase (AST) 26 13-40 U/L Alanine Aminotransferase (ALT) 16 7-40 U/L Alkaline Phosphatase 98 46-116 U/L Troponin I High Sensitivity 25 </=34 ng/L Total Protein 6.7 5.7-8.2 g/dL Albumin 3.9 3.2-4.8 g/dL [place] [id number] Ph: [phone] DIAGNOSTIC IMAGING Diagnostic Imaging Report : [id number] Signed PATIENT: JEET LI ACCT: [id number] UNIT: [id number] : 1935 LOC: ER ROOM / BED: / AGE / SEX: 89 / F ADM STATUS: REG ER SERVICE [id number] ORDERING PHYSICIAN: BRANDY MARCIAL MD PROCEDURE(s): CXRP - CHEST PORTABLE REASON: weakness ORDER NUMBER(s): [id number], ACCESSION NUMBER(s): [id number] CHEST RADIOGRAPH Indication: weakness Technique: Single frontal view of the chest was obtained Comparison: XY CHEST XRAY 1 VIEW on DOS: 03/21/24, XY CHEST PORTABLE on DOS: 03/21/24, XY CHEST XRAY 1 VIEW on DOS: 03/19/24 FINDINGS: Lines and Tubes: Bilateral increased pulmonary vascular markings suggesting pulmonary vascular congestion is seen. Bibasilar infiltrates are noted. Lungs: No focal consolidation. Pleura: No effusion. No pneumothorax. Cardiomediastinal contours: Cardiomegaly is noted. Bones: No acute osseous abnormality. IMPRESSION: 1. Findings most likely represent development of congestive failure when compared to 03/21/2024 ATED BY: NASRIN CLAUDIO Jr., DO DICTATED DATE/TIME: 05/12/242006 SIGNED BY: NASRIN CLAUDIO Jr., DO SIGNED DATE/TIME: 05/12/242006 CC: Time of 1ST Reevaluation: 16:12 Reevaluation 1ST: Unchanged Patient Education/Counseling: Diagnosis, Treatment Family Education/Counseling: No Family Present Departure 1 Departure Time of Disposition: 20:49 (Patient with worsening renal failure her and hypercalcemia we will treat patient admit for further workup.) Impression: Primary Impression: Hypercalcemia Additional Impressions: Acute renal failure Qualified Codes: N17.9 - Acute kidney failure, unspecified Generalized weakness Disposition: ADMITTED INPATIENT Admit to: Med Surg Condition: Guarded Critical Care Note Critical Care Time?: Yes Critical care comment: Acute hyperkalemia Authorized and Performed by: Brandy Marcial MD Total critical care time: Approximately 42 minutes Due to a high probability of clinically significant, life threatening deterioration, the patient required my highest level of preparedness to intervene emergently and I personally spent this critical care time directly and personally managing the patient. This critical care time included obtaining a history; examining the patient; pulse oximetry; ordering and review of studies; arranging urgent treatment with development of a management plan; evaluation of patient's response to treatment; frequent reassessment; and, discussions with other providers. This critical care time was performed to assess and manage the high probability of imminent, life-threatening deterioration that could result in multi-organ failure. It was exclusive of separately billable procedures and treating other patients and teaching time. Please see my other sections and the rest of the note for further information on patient assessment and treatment. Stability Stability form required: No Heart Score Heart Score: Heart Score Response (Comments) Value History N/A 0 EKG N/A 0 Age N/A 0 Risk Factors N/A 0 Troponin N/A 0 Total 0 I personally scribed for BRANDY MARCIAL MD ([facility]) on 05/12/24 at 15:53. Electronically submitted by Cristal Starr ([employer]). I personally scribed for BRANDY MARCIAL MD ([facility]) on 05/12/24 at 16:47. Electronically submitted by Cristal Starr ([employer]). I personally scribed for BRANDY MARCIAL MD ([facility]) on 05/12/24 at 20:45. Elect ronically submitted by Cristal Starr ([employer]). BRANDY MARCIAL MD May 12, 2024 15:53
[2024-05-12 16:28] LABS: Basophils # (auto) 0 10 ^3/uL (0-0.2); Basophils % (auto) 0.7 % (0.0-2.0); Eosinophils # (auto) 0 10 ^3/uL (0-0.8); Eosinophils % (auto) 0.7 % (0.0-7.0); Hematocrit 30.9 % (36.0-46.0); Hemoglobin 9.5 g/dL (12.2-16.2); Lymphocytes # (auto) 0.9 10 ^3/uL (0.4-5.4); Mean Corpuscular Hemoglobin 27.4 pg (28.0-32.0); Mean Corpuscular Hgb Conc. 30.7 g/dL (32.0-36.0); Mean Corpuscular Volume 89.4 fL (80.0-100.0); Monocytes # (auto) 0.4 10 ^3/uL (0-1.3); Monocytes % (auto) 7.5 % (0.0-12.0); Neutrophils # (auto) 3.9 10 ^3/uL (1.6-8.6); Neutrophils % (auto) 73.1 % (37.0-80.0); Nucleated Red Blood Cells % 0.3 %; Platelet Count (auto) 175 10^3/uL (140-450); Red Blood Cells 3.46 10^6/uL (4.0-5.20); Red Cell Distribution Width 16.5 % (11.8-14.3); White Blood Cell 5.3 10^3/uL (4.4-10.8)
[2024-05-12 16:46] LABS: Alanine Aminotransferase 16 U/L (7-40); Albumin 3.9 g/dL (3.2-4.8); Alkaline Phosphatase 98 U/L (46-116); Anion Gap 9 (5-15); Aspartate Aminotransferase 26 U/L (13-40); Carbon Dioxide 21 mmol/L (20-31); Chloride 106 mmol/L (98-107)
[2024-05-12 16:47] LABS: Bilirubin, Total 0.3 mg/dL (0.2-1.0); Total Protein 6.7 g/dL (5.7-8.2)
[2024-05-12 17:07] LABS: Glucose 247 mg/dL (74-106); Sodium 136 mmol/L (136-145)
[2024-05-12 17:17] LABS: Blood Urea Nitrogen 91 mg/dL (9-23); Potassium 5.7 mmol/L (3.5-5.1)
--- NOTE | 2024-05-12 20:09 | DVH ---
CHEST RADIOGRAPH Indication: weakness Technique: Single frontal view of the chest was obtained Comparison: XY CHEST XRAY 1 VIEW on DOS: 03/21/24, XY CHEST PORTABLE on DOS: 03/21/24, XY CHEST XRAY 1 VIEW on DOS: 03/19/24 FINDINGS: Lines and Tubes: Bilateral increased pulmonary vascular markings suggesting pulmonary vascular conges tion is seen. Bibasilar infiltrates are noted. Lungs: No focal consolidation. Pleura: No effusion. No pneumothorax. Cardiomediastinal contours: Cardiomegaly is noted. Bones: No acute osseous abnormality. IMPRESSION: 1. Findings most likely represent development of congestive failure when compared to 03/21/2024
[2024-05-12] MEDS: InsuLIN REG 1unit/0.01ml Soln (100units/ml) IV ONE (22:05)
[2024-05-12] MEDS: DEXTROSE (50%) 50ML SYRG IV ONE (22:12)
[2024-05-12] MEDS: CALCIUM GLUC 1,000mg/50ml-NS 50 ML IV SCH (22:12)
[2024-05-12] MEDS: SODIUM BICARB 8.4% 50Meq/50ml SYR Vial IV ONE (22:12)
--- NOTE | 2024-05-12 22:53 | DVHHPRES ---
History of Present Illness Resident Creating Document: LEONEL MCHUGH RESIDENT History of Present Illness This is a 89-year-old female past medical history of hypertension, diabetes mellitus, hyperlipidemia, CKD, anemia and dementia presented to the ED via EMS with the chief complaint of fatigue, weakness and bilateral leg swelling for 1 week prior to this admission. According to the family the patient revoked hospice 2 weeks ago and was complaining of bilateral leg swelling and generalized weakness. She has history of CKD and foxing closer recommended dialysis but the patient refused 2 times. On admission patient was desaturating at 72% and was placed on oxygen 1st 15 L and titrated down to 3 L with oxygen saturation 97%. The patient denies chest pain, dizziness, diaphoresis, abdominal pain, nausea, vomiting or any change in bowel and bladder movement. Past Medical History Hypertension, hyperlipidemia, CKD, anemia, dementia Past Surgical History Spleen surgery Family History None Past Social History Lives with family Nonsmoker nonalcoholic and never tried any drugs Review of Systems Constitutional: Yes: Weakness; No: Fever, Chills, Sweats, Malaise, Other Eyes: No: Pain, Vision change, Conjunctivae inflammation, Eyelid inflammation, Other, Redness ENT: No: Ear pain, Ear discharge, Nose pain, Nose discharge, Nose congestion, Mouth pain, Mouth swelling, Throat pain, Throat swelling, Other Respiratory: Shortness of breath; No: Cough, Dry, SOB with excertion, Wheezing, Hemoptysis, Pleuritic Pain, Sputum, Wheezing, Other Cardiovascular: Edema; No: Chest Pain, Palpitations, Orthopnea, Paroxysmal Noc. Dyspnea, Lt Headedness, Other Gastrointestinal: No: Nausea, Vomiting, Abdominal Pain, Diarrhea, Constipation, Melena, Hematochezia, Other Genitourinary: No Dysuria, No Frequency, No Incontinence, No Hematuria, No Retention, No Other Musculoskeletal: No: other, neck pain, shoulder pain, arm pain, back pain, hand pain, leg pain, foot pain Skin: No: Rash, Lesions, Jaundice, Bruising, Other Neurological: No: Weakness, Numbness, Incoordination, Change in speech, Confusion, Seizures, Other Allergies: Coded Allergies: Aspirin (Unverified Allergy, Unknown, 08/23/20) Celecoxib (Verified Adverse Reaction, Severe, WEAKNESS, 04/05/11) Exam Vital Signs Vital Signs Date Time Temp Pulse Resp B/P (MAP) Pulse Ox O2 Delivery O2 Flow Rate FiO2 05/12/24 21:16 97.4 71 18 126/42 (70 79 97.4 Exam Physical examination: General Appearance: Alert, Oriented X3, Cooperative, mild distress, nasal canula 3 L HEENT: Atraumatic, PERRLA, EOMI, Mucous membrane moist/pink Respiratory: Bilateral decreased breath sound, crackles. Cardiovascular: Regular rate, Normal S1, Normal S2, No murmurs, no chest wall tenderness Abdominal: Normal bowel sounds, Soft, No tenderness, No hepatospenomegaly, No masses Extremities: Bilateral pedal edema 2+, bilateral stasis dermatitis in both legs, bilateral erythema in both arms, No clubbing, No cyanosis, Normal pulses, Skin: No rashes, No breakdown, No significant lesion Neuro: Bed bound Normal speech, Strength at 5/5 X4 ext, Normal tone, Sensation intact, grossly intact cranial nerves Psych/Mental Status: Mental status NL, Mood NL Labs/Xrays Labs Test 05/12/24 21:08 05/12/24 16:12 Range/Units Troponin I High Sensitivity 25 </=34 ng/L White Blood Count 5.3 4.4-10.8 10^3/uL Red Blood Count 3.46 L 4.0-5.20 10^6/uL Hemoglobin 9.5 L 12.2-16.2 g/dL Hematocrit 30.9 L 36.0-46.0 % Mean Corpuscular Volume 89.4 80.0-100.0 fL Mean Corpuscular Hemoglobin 27.4 L 28.0-32.0 pg Mean Corpuscular Hemoglobin Concent 30.7 L 32.0-36.0 g/dL Red Cell Distribution Width 16.5 H 11.8-14.3 % Platelet Count 175 140-450 10^3/uL Mean Platelet Volume 7.8 6.9-10.8 fL Neutrophils (%) (Auto) 73.1 37.0-80.0 % Lymphocytes (%) (Auto) 18.0 10.0-50.0 % Monocytes (%) (Auto) 7.5 0.0-12.0 % Eosinophils (%) (Auto) 0.7 0.0-7.0 % Basophils (%) (Auto) 0.7 0.0-2.0 % Neutrophils # (Auto) 3.9 1.6-8.6 10 ^3/uL Lymphocytes # (Auto) 0.9 0.4-5.4 10 ^3/uL Monocytes # (Auto) 0.4 0-1.3 10 ^3/uL Eosinophils # (Auto) 0 0-0.8 10 ^3/uL Basophils # (Auto) 0 0-0.2 10 ^3/uL Nucleated Red Blood Cells 0.3 % Sodium Level 136 136-145 mmol/L Potassium Level 5.7 *H 3.5-5.1 mmol/L Chloride Level 106 98-107 mmol/L Carbon Dioxide Level 21 20-31 mmol/L Anion Gap 9 5-15 Blood Urea Nitrogen 91 *H 9-23 mg/dL Creatinine 4.56 H 0.550-1.02 mg/dL Glomerular Filtration Rate Calc 9 >90 mL/min BUN/Creatinine Ratio 20.0 10.0-20.0 Serum Glucose 247 H 74-106 mg/dL Lactic Acid Level 1.2 0.4-2.0 mmol/L Calcium Level 9.0 8.7-10.4 mg/dL Total Bilirubin 0.3 0.2-1.0 mg/dL Aspartate Amino Transferase (AST) 26 13-40 U/L Alanine Aminotransferase (ALT) 16 7-40 U/L Alkaline Phosphatase 98 46-116 U/L Total Protein 6.7 5.7-8.2 g/dL Albumin 3.9 3.2-4.8 g/dL Assessment/Plan Assessment/Plan Assessment and plan: # Acute respiratory failure secondary to acute exacerbation of chronic diastolic heart failure - Patient is on 3 L oxygen with saturation 97% - Chest xray revealed bilateral pulmonary vascular congestion suggestive of CHF - Ordered BNP - IV Lasix 40 mg b.i.d. 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 and moderate sliding scale of insulin. # Hypertensive heart disease - Amlodipin 5 mg p.o. daily # PUD prophylaxis - Pepcid 20 mg p.o. daily # DVT prophylaxis - 5000 units SC b.i.d. Goal of care discussed with the patient and the family for more than 17 minutes full code Plan discussed with Dr. Suarez Plan discussed with: Patient, Other My Orders Orders - LEONEL MCHUGH Procedure Category Date Status Time Admit ADMIT 05/12/24 Transmitted 22:51 [employer] ORDERS 05/12/24 Transmitted 22:51 Date of Service: May 12, 2024 Billing Provider: DOMINICK SUAREZ MD Common Visit Codes: 26450-[id number] INP/OBS CARE (HIGH) Secondary Visit Codes: [id number] CARE PLAN 30 MINUTES LEONEL MCHUGH May 12, 2024 22:53 DOMINICK SUAREZ MD May 14, 2024 10:57
[2024-05-12] MEDS ORDERED: DEXTROSE (50%) 50ML SYRG IV PRN (23:30)
[2024-05-12] MEDS: FUROSEMIDE 100 MG/10ML VIAL IV ONE (23:40)
[2024-05-12 23:59] LABS: Magnesium 2.7 mg/dL (1.6-2.6)
[2024-05-13] VITALS (12 sets, daily range): BP systolic 109–138; BP diastolic 47–61; PULSE 67–74; RESP 14–22; TEMP 97.6–99.3; O2SAT 94–100
--- NOTE | 2024-05-13 01:37 | DVH ---
CLINICAL HISTORY: To rule out DVT TECHNIQUE: Color and duplex doppler imaging of the bilateral lower extremity veins was performed. Ves grecia compression if possible was also performed. WID: COMPARISON: US BILAT LOWER DVT on DOS: 03/17/24 FINDINGS: Limited study due to patient limited mobility Right Lower Extremity: Right common femoral vein: Normal compressibility and flow. Right femoral vein: Normal compressibility and flow. Right popliteal vein: Not visualized Proximal calf veins are not visualized Left Lower Extremity: Left common femoral vein: Normal compressibility and flow. Left femoral vein: Normal compressibility and flow. Left popliteal vein: Normal compressibility and flow. Proximal calf veins are normally compressible. IMPRESSION: NO SONOGRAPHIC EVIDENCE FOR DEEP VENOUS THROMBOSIS IN THE BILATERAL LOWER EXTREMITY VEINS although th e right popliteal and posterior tibial veins were not visualized..
[2024-05-13 01:40] LABS: Urine Bacteria FEW /hpf (None Seen); Urine Blood TRACE /uL (Negative); Urine Clarity Turbid (Clear); Urine Color Yellow (Yellow); Urine Hyaline Cast MANY /lpf (0 - 2); Urine Mucus FEW (None Seen); Urine Protein, UAD 2+ (Negative); Urine Specific Gravity 1.016 (1.001-1.035); Urine Squamous Epithelial Cell FEW /hpf (<5); Urine Urobilinogen Normal (Negative); Urine WBC 5 /hpf (0 - 5); Urine pH 5.5 (5.0-9.0)
[2024-05-13 02:04] LABS: Sodium 137 mmol/L (136-145)
[2024-05-13 02:05] LABS: Anion Gap 9 (5-15); Carbon Dioxide 21 mmol/L (20-31)
[2024-05-13 02:06] LABS: Calcium 9.4 mg/dL (8.7-10.4)
[2024-05-13 02:10] LABS: BUN/Creatinine Ratio 20.4 (10.0-20.0)
[2024-05-13 02:19] LABS: Chloride 107 mmol/L (98-107); Glucose 195 mg/dL (74-106); Potassium 5.4 mmol/L (3.5-5.1)
[2024-05-13 02:20] LABS: Blood Urea Nitrogen 92 mg/dL (9-23)
[2024-05-13 03:26] LABS: INR 1.19 (0.9-1.15); Partial Thromboplastin Time 27.5 SEC (24.5-34.5); Prothrombin Time 12.5 sec (9.3-11.8)
[2024-05-13] MEDS: DEXTROSE (50%) 50ML SYRG IV ONE (05:45)
[2024-05-13] MEDS: InsuLIN REG 1unit/0.01ml Soln (100units/ml) IV ONE (05:45)
[2024-05-13] MEDS: SODIUM BICARB 8.4% 50Meq/50ml SYR INJ IV ONE (05:45)
[2024-05-13] MEDS: ALBUTEROL SULF 2.5 MG/0.5ML(0.5%) NEB SOLN NEB ONE (06:19)
[2024-05-13] MEDS: ACCU-CHEK COMFORT CURVE STRIP VI SCH ×2 (06:36→11:54)
[2024-05-13] MEDS: FUROSEMIDE 40 MG/4 ML VIAL IV SCH (06:40)
[2024-05-13] MEDS: INSULIN LANTUS (GLARGINE) 1 /0.01ml (100units/ml) SC SCH (06:44)
[2024-05-13] MEDS: InsuLIN REG 1unit/0.01ml Soln (100units/ml) SC SCH ×3 (06:44→21:38)
[2024-05-13 06:45] LABS: % Iron Saturation 5.8 % (15-50)
[2024-05-13] MEDS: FAMOTIDINE 20 MG TAB PO SCH (08:31)
[2024-05-13] MEDS: SODIUM ZIRCONIUM CYCL 10 GM PAK PO ONE (08:31)
[2024-05-13] MEDS: HEPARIN SODIUM (PORCINE) 5000 UNITS/ML 1ML VIAL SC SCH ×2 (08:32→21:25)
[2024-05-13] MEDS: FUROSEMIDE 20 MG/2 ML VIAL IV ONE (10:11)
[2024-05-13] MEDS ORDERED: cefTRIAXone 1GM/50ML D5W 50 ML IV ONE (10:30)
--- NOTE | 2024-05-13 10:33 | DVHPNRES ---
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 According to the patient, she was brought in by her daughter after she experienced an episode of feeling dizzy, patient notes she was lying down when all of a sudden she started feeling dizziness which lasted for 30 minutes. Patient reports that she often feels dizzy, usually when she sitting the dizziness will come all of a sudden. Patient also notes that she has loss of appetite, has not had a meal for the last 2 days. Denies any dysphagia or odynophagia, just states lack of appetite as the reason for not eating. Past surgical history: Splenectomy Home medications: Allopurinol, atorvastatin, furosemide, glipizide, linagliptin, losartan Past Hospitalization: March 2024 for sepsis due to UTI Social & Personal history: Patient lives with her daughter. Denies using tobacco, alcohol, drugs. Allergies: Denies Patient seen and examined at bedside. Patient is alert and oriented to time, place person and responding to all questions. General: Fatigue Eyes: No Pain, No Vision change, No Conjunctivae inflammation, No Eyelid inflammation, No Other, No Redness ENT: No Ear pain, No Ear discharge, No Nose pain, No Nose discharge, No Nose congestion, No Mouth pain, No Mouth swelling, No Throat pain, No Throat swelling, No Other Cardiovascular: No Chest Pain, Palpitations, No Orthopnea, Dyspnea, No Edema, No Lt Headedness, No Other Respiratory: No Cough, No Dry, Shortness of breath, No SOB with exertion, No Wheezing, No Hemoptysis, No Pleuritic Pain, No Sputum, No Other Gastrointestinal: No Nausea, No Vomiting, No Abdominal Pain, No Diarrhea, No Constipation, No Melena, No Hematochezia, No Other Genitourinary: Dysuria, No Frequency, No Incontinence, No Hematuria, No Retention, No Other Musculoskeletal: No other, No neck pain, No shoulder pain, No arm pain, No back pain, No hand pain, No leg pain, No foot pain Skin: No Rash, No Lesions, No Jaundice, No Bruising, No Other Objective vital signs Vital Sign Date Time Temp Pulse Resp B/P (MAP) Pulse Ox O2 Delivery O2 Flow Rate FiO2 05/13/24 10:11 132/49 05/13/24 09:00 97.6 71 15 95 97.6 05/13/24 06:27 Nasal Cannula 3.0 05/13/24 06:27 32 medications Current Medications Medications Dose Ordered Sig/Francoise Route Start Time Stop Time Status Last Admin Dose Admin Furosemide 40 mg BIDD IV 05/13/24 06:00 05/13/24 06:40 40 MG Insulin Glargine 15 units QAM SC 05/13/24 07:00 05/13/24 06:44 15 UNITS Diagnostic Test (Pha) 1 strip ACHS 05/13/24 07:00 05/13/24 06:36 1 STRIP Insulin Human Regular HS SC 05/13/24 22:00 Insulin Human Regular AC SC 05/13/24 07:00 05/13/24 06:44 2 UNITS Dextrose 50 ml UD PRN IV 05/12/24 23:30 Zirconium Oxide 10 gm TID PO 05/13/24 14:00 Famotidine 20 mg DAILY PO 05/13/24 10:00 05/13/24 08:31 20 MG Heparin Sodium (Porcine) 5,000 units Q12HR SC 05/13/24 10:00 05/13/24 08:32 5,000 UNITS Clindamycin Phosphate 50 ml @ 50 mls/hr Q8HR IV 05/13/24 14:00 UNV Ceftriaxone Sodium 50 ml @ 100 mls/hr DAILY@09 IV 05/14/24 09:00 UNV Examination General Appearance: Cooperative. Well developed. Well nourished. NAD Head Exam: Normal inspection Neck Exam: Normal inspection. Non-tender. Normal alignment Pulmonary/Respiratory: Chest non-tender. Clear bilateral breath sounds, no crackles, wheezing. Cardiovascular/Chest: Regular rate and rhythm. Systolic murmur heard. No JVD. Peripheral Pulses: 2+ Radial (R). 2+ Radial (L). 2+ Pedal (R). 2+ Pedal (L) Abdominal Exam: Normal bowel sounds. Soft. normal abdomen, no visible veins, Nontender. No hepatospenomegaly. No masses Ankle Exam: Negative ankle edema Lower extremities: 1+ lower extremity edema. Bilateral lower extremity erythema. Scabbing ulceration noted on the right lower extremity anterior aspect. Upper extremities: Bilateral upper extremity erythema, mild tenderness to palpation. Erythema well demarcated in the right upper extremity, poorly demarcated in the left upper extremity. Neuro/Mental Status: A&O x4. Coherent. Thoughts/Psych: Normal thought pattern. Appropriate mood and affect. Good judgement and insight Skin Exam: Normal inspection. Normal color. Warm. Dry Neurologic: Right arm resting tremor laboratory and microbiology Laboratory Tests 05/13/24 01:46 05/12/24 16:12 Test 05/13/24 01:46 Range/Units Serum Glucose 195 H 74-106 mg/dL Labs and/or images reviewed: Labs reviewed by me, Image(s) reviewed by me Problem List/Assessment/Plan Problem List/Assessment/Plan Acute on chronic diastolic CHF, EF 55% Acute hypoxic respiratory failure due to above, on 2 L O2 via NC Cardiorenal syndrome - CXR: Findings most likely represent development of congestive failure when compared to 03/21/2024 - IV Lasix 80 mg b.i.d. Possible pneumonia, Gram-positive versus Gram-negative can not be ruled out Lower extremity cellulitis can not be ruled out at present - extremity venous study: No sonographic evidence for deep vein thrombosis in bilateral lower extremity veins - IV ceftriaxone - IV clindamycin 600 mg Q 8 hours - ipratropium, albuterol med nebs FARNAZ likely hemodynamically mediated/VMN on CKD 5 Hyperkalemia due to above - insulin dextrose - sodium bicarb 1 dose once - Lokelma 10 g p.o. t.i.d. - nephrology on board; scheduled for dialysis access placement tomorrow 05/14/2024 Type 2 diabetes, Hb A1c 7.1 Hypertension, BP currently running on the softer side - insulin Lantus 15 units q.a.m. - holding home medication amlodipine 10 mg due to bilateral lower extremity swelling PUD prophylaxis: Pepcid 20 mg DVT prophylaxis: Heparin 5000 units b.i.d. Goals of care: Full code, discussed for >16 minutes on 05/13/24 Plan discussed with patient Plan discussed with Dr. Suarez Plan discussed with: Patient, Other (RN) My Orders My Orders Orders - SHELBI GUEVARA RESIDENT Procedure Category Date Status Time Clindamycin 600mg Iv PHA 05/13/24 Logged (Cleocin Iv) 14:00 Ceftriaxone 1gm/50ml PHA 05/14/24 Logged D5w (Rocephin) 09:00 Ceftriaxone 1gm/50ml PHA 05/13/24 Logged D5w (Rocephin) 10:30 * Wound Consult CONS 05/13/24 Transmitted Date of Service: May 13, 2024 Billing Provider: DOMINICK SUAREZ MD Common Visit Codes: [id number] INP/OBS CARE(HIGH) SHELBI GUEVARA RESIDENT May 13, 2024 10:33 DOMINICK SUAREZ MD May 14, 2024 11:03
[2024-05-13] MEDS: cefTRIAXone 1GM/50ML D5W 50 ML IV ONE (11:31)
--- NOTE | 2024-05-13 12:22 | DVHINCON2 ---
Date of service: May 13, [address] Trujillo Reason for Consultation Acute kidney injury History of Present Illness Patient is a 89-year-old male with past medical history significant for Anemia, CKD stage IV, Dementia, DM, High Lipids, and HTN is admitted for generalized weakness and fatigue. On admission patient found to have elevated BUN creatinine nephrology is consulted for acute kidney injury Past Medical History PAST MEDICAL HISTORY: Anemia, CKD stage IV, Dementia, DM, High Lipids, HTN Past Surgical History Surgical History: Cholecystectomy, Hernia Repair Allergies: Coded Allergies: Aspirin (Unverified Allergy, Unknown, 08/23/20) Celecoxib (Verified Adverse Reaction, Severe, WEAKNESS, 04/05/11) Home Meds Reported Medications Metformin Hydrochloride (Metformin Hcl) 500 Mg Tab, 1 TAB PO DAILY for 90 Days, #90 05/13/24 Mupirocin (Pseudomonas Fluores (Mupirocin) 2 % Oin, 2 % EX UD for 30 Days, #22 05/13/24 Amlodipine Besylate (Amlodipine Besylate) 10 Mg Tab, 1 TAB PO DAILY for 90 Days, #90 05/13/24 Ferrous Sulfate (Ferosul) 325 Mg Tab, 1 TAB PO BID for 30 Days, #60 03/19/24 Glipizide (Glipizide) 5 Mg Tab, 5 MG PO BIDAC for 30 Days, MG 03/19/24 Atorvastatin Calcium (Lipitor) 20 Mg Tab, 1 TAB PO DAILY for 90 Days, #90 03/19/24 Furosemide (Furosemide) 40 Mg Tab, 1 TAB PO BID for 30 Days, #60 03/19/24 Allopurinol (Allopurinol) 100 Mg Tab, 100 MG PO TID for 30 Days, MG 03/19/24 Losartan Potassium (Losartan Potassium) 50 Mg Tab, 1 TAB PO DAILY for 90 Days, #90 03/19/24 Linagliptin Base (TRADJENTA) 5 Mg Tab, 1 TAB PO DAILY for 90 Days, #90 10/06/20 Current Medications Current Medications Medications (Trade) Dose Ordered Sig/Francoise Route PRN Reason Start Time Stop Time Status Last Admin Calcium Gluconate/ Sodium Chloride 50 ml @ 100 mls/hr Q30M IV 05/12/24 20:45 05/12/24 21:44 DC 05/12/24 22:40 Furosemide (Lasix Injection) 40 mg BIDD IV 05/13/24 06:00 12/30/24 10:46 DC 05/13/24 06:40 Insulin Glargine (Lantus) 15 units QAM SC 05/13/24 07:00 05/13/24 10:46 DC 05/13/24 06:44 Diagnostic Test (Pha) (Accu-Chek Comfort Curve T) 1 strip ACHS 05/13/24 07:00 05/13/24 10:46 DC 05/13/24 06:36 Insulin Human Regular (InsuLIN R) HS ID 05/13/24 22:00 05/13/24 10:47 DC Insulin Human Regular (InsuLIN R) AC ID 05/13/24 07:00 05/13/24 10:47 DC 05/13/24 06:44 Dextrose 50 ml UD PRN IV Blood Sugar LESS THAN 60 05/12/24 23:30 05/13/24 10:47 DC Zirconium Oxide (Lokelma) 10 gm TID PO 05/13/24 14:00 05/13/24 10:47 DC Famotidine (Pepcid Tablet) 20 mg DAILY PO 05/13/24 10:00 05/13/24 10:48 DC 05/13/24 08:31 Heparin Sodium (Porcine) 5,000 units Q12HR SC 05/13/24 10:00 05/13/24 10:48 DC 05/13/24 08:32 Clindamycin Phosphate 50 ml @ 50 mls/hr Q8HR IV 05/13/24 14:00 05/13/24 10:48 DC Ceftriaxone Sodium 50 ml @ 100 mls/hr DAILY@09 IV 05/14/24 09:00 05/13/24 10:49 DC Furosemide (Lasix Injection) 40 mg BIDD IV 05/13/24 18:00 05/13/24 14:55 DC Insulin Glargine (Lantus) 15 units QAM ID 05/14/24 07:00 Diagnostic Test (Pha) (Accu-Chek Comfort Curve T) 1 strip ACHS 05/13/24 11:30 05/13/24 11:54 Insulin Human Regular (InsuLIN R) HS ID 05/13/24 22:00 Insulin Human Regular (InsuLIN R) AC ID 05/13/24 11:30 05/13/24 11:53 Dextrose 50 ml UD PRN IV Blood Sugar LESS THAN 60 05/13/24 11:00 Zirconium Oxide (Lokelma) 10 gm TID PO 05/13/24 14:00 05/13/24 15:28 Famotidine (Pepcid Tablet) 20 mg DAILY PO 05/14/24 10:00 Heparin Sodium (Porcine) 5,000 units Q12HR SC 05/13/24 22:00 Clindamycin Phosphate 50 ml @ 50 mls/hr Q8HR IV 05/13/24 14:00 05/13/24 15:28 Ceftriaxone Sodium 50 ml @ 100 mls/hr DAILY@09 IV 05/14/24 09:00 Furosemide (Lasix Injection) 80 mg BIDD IV 05/13/24 18:00 Albuterol (Ventolin Medneb) 2.5 mg Q6HPRN PRN NEB SHORTNESS OF BREATH 05/13/24 15:00 Ipratropium [place] (Atrovent Medneb) 0.5 mg Q6HPRN PRN NEB SHORTNESS OF BREATH 05/13/24 15:00 Family History: Cardiovascular disease G8 MOTHER Diabetes mellitus G8 MOTHER G8 FATHER Review of Systems All 12 items ROS reviewed with patient nonew is significant except what is mentioned in HPI H&P Exam Vital Signs/I&O Vital Sign Date Time Temp Pulse Resp B/P (MAP) Pulse Ox O2 Delivery O2 Flow Rate FiO2 05/13/24 13:00 99.3 71 14 109/61 (77) 97 99.3 05/13/24 06:27 Nasal Cannula 3.0 05/13/24 06:27 32 Physical Exam Awake and alert Lung: bibasilar crackles COR: RRR GI: WNL : NL ext: 1+ edema Neuro: nonfocal Labs/Diagnostic Data Labs/Diagnostic Data Laboratory Tests Test 05/13/24 11:38 05/13/24 10:05 05/13/24 06:10 05/13/24 02:41 Range/Units POC Glucose 170 H 172 H 70-106 mg/dl Hemoglobin A1c 7.1 H <5.7 % A1C B-Type Natriuretic Peptide 1443.71 0-100 pg/mL Prothrombin Time 12.5 H 9.3-11.8 sec Prothrombin Time INR 1.19 H 0.9-1.15 Activated Partial Thromboplast Time 27.5 24.5-34.5 SEC Iron Level 18 L 50-170 ug/dL Total Iron Binding Capacity 313 250-425 ug/dL Percent Iron Saturation 5.8 L 15-50 % Vitamin D 25-Hydroxy 28.8 L 30.0-100 ng/mL Hepatitis B Surface Antigen Negative Negative Hepatitis C Antibody Negative Negative Test 05/13/24 01:46 05/13/24 01:41 05/13/24 00:49 05/12/24 21:08 Range/Units Sodium Level 137 136-145 mmol/L Potassium Level 5.4 H 3.5-5.1 mmol/L Chloride Level 107 98-107 mmol/L Carbon Dioxide Level 21 20-31 mmol/L Anion Gap 9 5-15 Blood Urea Nitrogen 92 *H 9-23 mg/dL Creatinine 4.52 H 0.550-1.02 mg/dL Glomerular Filtration Rate Calc 9 >90 mL/min BUN/Creatinine Ratio 20.4 H 10.0-20.0 Serum Glucose 195 H 74-106 mg/dL Calcium Level 9.4 8.7-10.4 mg/dL Phosphorus Level 6.7 H 7.0 H 2.4-5.1 mg/dL Magnesium Level 2.7 H 2.7 H 1.6-2.6 mg/dL Ferritin 31.4 10-291 ng/mL Urine Color Yellow Yellow Urine Clarity Turbid H Clear Urine pH 5.5 5.0-9.0 Urine Specific Globe 1.016 1.001-1.035 Urine Protein 2+ H Negative Urine Ketones Negative Negative Urine Blood Trace H Negative /uL Urine Nitrite Negative Negative Urine Bilirubin Negative Negative Urine Urobilinogen Normal Negative mg/dL Urine Leukocyte Esterase Negative Negative /uL Urine RBC 3 0 - 4 /hpf Urine WBC 5 0 - 5 /hpf Urine Squamous Epithelial Cells Few <5 /hpf Urine Bacteria Few H None Seen /hpf Urine Hyaline Casts Many 0 - 2 /lpf Urine Mucus Few None Seen Urine Glucose Trace Normal mg/dL Troponin I High Sensitivity 25 </=34 ng/L Vitamin D 25-Hydroxy 29.9 L 30.0-100 ng/mL Test 05/12/24 16:12 Range/Units White Blood Count 5.3 4.4-10.8 10^3/uL Red Blood Count 3.46 L 4.0-5.20 10^6/uL Hemoglobin 9.5 L 12.2-16.2 g/dL Hematocrit 30.9 L 36.0-46.0 % Mean Corpuscular Volume 89.4 80.0-100.0 fL Mean Corpuscular Hemoglobin 27.4 L 28.0-32.0 pg Mean Corpuscular Hemoglobin Concent 30.7 L 32.0-36.0 g/dL Red Cell Distribution Width 16.5 H 11.8-14.3 % Platelet Count 175 140-450 10^3/uL Mean Platelet Volume 7.8 6.9-10.8 fL Neutrophils (%) (Auto) 73.1 37.0-80.0 % Lymphocytes (%) (Auto) 18.0 10.0-50.0 % Monocytes (%) (Auto) 7.5 0.0-12.0 % Eosinophils (%) (Auto) 0.7 0.0-7.0 % Basophils (%) (Auto) 0.7 0.0-2.0 % Neutrophils # (Auto) 3.9 1.6-8.6 10 ^3/uL Lymphocytes # (Auto) 0.9 0.4-5.4 10 ^3/uL Monocytes # (Auto) 0.4 0-1.3 10 ^3/uL Eosinophils # (Auto) 0 0-0.8 10 ^3/uL Basophils # (Auto) 0 0-0.2 10 ^3/uL Nucleated Red Blood Cells 0.3 % Sodium Level 136 136-145 mmol/L Potassium Level 5.7 *H 3.5-5.1 mmol/L Chloride Level 106 98-107 mmol/L Carbon Dioxide Level 21 20-31 mmol/L Anion Gap 9 5-15 Blood Urea Nitrogen 91 *H 9-23 mg/dL Creatinine 4.56 H 0.550-1.02 mg/dL Glomerular Filtration Rate Calc 9 >90 mL/min BUN/Creatinine Ratio 20.0 10.0-20.0 Serum Glucose 247 H 74-106 mg/dL Lactic Acid Level 1.2 0.4-2.0 mmol/L Calcium Level 9.0 8.7-10.4 mg/dL Total Bilirubin 0.3 0.2-1.0 mg/dL Aspartate Amino Transferase (AST) 26 13-40 U/L Alanine Aminotransferase (ALT) 16 7-40 U/L Alkaline Phosphatase 98 46-116 U/L Troponin I High Sensitivity 25 </=34 ng/L Total Protein 6.7 5.7-8.2 g/dL Albumin 3.9 3.2-4.8 g/dL Assessment Acute kidney injury superimposed Chronic Kidney Disease stage IV secondary hemodynamic mediated, 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 I discussed my plan of care with the patient naun and the primary nurse at bedside I would like to thank Dr. Trujillo for the consult, will follow Plan discussed with: Patient, Daughter JAN PARRA MD May 13, 2024 12:22
[2024-05-13 13:47] LABS: Magnesium 2.7 mg/dL (1.6-2.6)
[2024-05-13 13:48] LABS: Phosphorus 6.7 mg/dL (2.4-5.1)
[2024-05-13] MEDS ORDERED: CLINDAMYCIN 600MG IV 50 ML IV SCH (14:00)
[2024-05-13] MEDS ORDERED: SODIUM ZIRCONIUM CYCL 10 GM PAK PO SCH (14:00)
[2024-05-13 15:14] LABS: Hepatitis B Surface Antigen Negative (Negative); Hepatitis C Antibody Negative (Negative)
[2024-05-13] MEDS: SODIUM ZIRCONIUM CYCL 10 GM PAK PO SCH (15:28)
[2024-05-13] MEDS: CLINDAMYCIN 600MG IV 50 ML IV SCH (15:28)
[2024-05-13] MEDS: FUROSEMIDE 100 MG/10ML VIAL IV SCH (17:37)
[2024-05-13] MEDS ORDERED: FUROSEMIDE 40 MG/4 ML VIAL IV SCH (18:00)
[2024-05-13] MEDS ORDERED: InsuLIN REG 1unit/0.01ml Soln (100units/ml) SC SCH (22:00)
[2024-05-14] VITALS (14 sets, daily range): BP systolic 123–143; BP diastolic 40–71; PULSE 61–75; RESP 13–20; TEMP 97.6–98.7; O2SAT 92–100
[2024-05-14] MEDS: DEXTROSE (50%) 50ML SYRG IV PRN (06:02)
[2024-05-14] MEDS ORDERED: INSULIN LANTUS (GLARGINE) 1 /0.01ml (100units/ml) SC SCH (07:00)
[2024-05-14] MEDS: SODIUM CHL 0.9% 1000 ML BAG XX ONE (07:00)
[2024-05-14 07:57] LABS: Anion Gap 10 (5-15); Carbon Dioxide 24 mmol/L (20-31); Chloride 106 mmol/L (98-107); Potassium 4.5 mmol/L (3.5-5.1); Sodium 140 mmol/L (136-145)
[2024-05-14 07:58] LABS: Calcium 8.9 mg/dL (8.7-10.4)
[2024-05-14 07:59] LABS: Basophils # (auto) 0 10 ^3/uL (0-0.2); Eosinophils # (auto) 0.2 10 ^3/uL (0-0.8); Eosinophils % (auto) 3.2 % (0.0-7.0); Hemoglobin 8.9 g/dL (12.2-16.2); Lymphocytes # (auto) 0.4 10 ^3/uL (0.4-5.4); Monocytes # (auto) 0.2 10 ^3/uL (0-1.3); Neutrophils # (auto) 4.5 10 ^3/uL (1.6-8.6); Nucleated Red Blood Cells % 0.3 %; White Blood Cell 5.3 10^3/uL (4.4-10.8)
[2024-05-14 08:03] LABS: BUN/Creatinine Ratio 20.9 (10.0-20.0); Basophils % (auto) 0.5 % (0.0-2.0); Glucose 104 mg/dL (74-106); Hematocrit 28.4 % (36.0-46.0); Lymphocytes % (auto) 7.2 % (10.0-50.0); Mean Corpuscular Hemoglobin 28.1 pg (28.0-32.0); Mean Corpuscular Hgb Conc. 31.3 g/dL (32.0-36.0); Mean Corpuscular Volume 89.7 fL (80.0-100.0); Monocytes % (auto) 3.8 % (0.0-12.0); Neutrophils % (auto) 85.3 % (37.0-80.0); Platelet Count (auto) 149 10^3/uL (140-450); Red Blood Cells 3.17 10^6/uL (4.0-5.20); Red Cell Distribution Width 16.9 % (11.8-14.3)
[2024-05-14 08:05] LABS: Blood Urea Nitrogen 94 mg/dL (9-23)
[2024-05-14] MEDS ORDERED: cefTRIAXone 1GM/50ML D5W 50 ML IV SCH (09:00)
[2024-05-14] MEDS: fentaNYL CITRATE 100 MCG/2 ML VL ONE (09:52)
[2024-05-14] MEDS: MIDAZOLAM HCL 2MG/2ML 2ml VIAL (1mg/ml) ONE (09:52)
[2024-05-14] MEDS: LIDOCAINE 2%HCL (LOCAL ANESTH.) INJ 20ML MDV ONE (10:05)
[2024-05-14] MEDS: HEPARIN SODIUM (PORCINE) 5000 UNITS/ML 1ML VIAL ONE (10:32)
[2024-05-14] MEDS: ceFAZolin 1GM/50ML 50 ML IV ONE (10:32)
--- NOTE | 2024-05-14 11:40 | DVH ---
XY Insertion of Venous Cath, HISTORY: TD CATH PROCEDURE: Informed consent was obtained. The patient was placed supine on the interventional table. 1 gram of Ancef was given IV. A limited localization ultrasound of the right neck base was obtained. The right neck base and upper chest were prepped with chlorhexidine which was allowed to dry and drap ed in the usual sterile fashion. Time out was performed. IV sedation was administered. The skin and t he soft tissues were infiltrated with 1% Lidocaine . With real-time ultrasound guidance, the internal jugular vein was accessed with a micropuncture kit, and an image documenting patency was recorded to PACS. A subcutaneous tunneled tract was created from the right upper chest to the venotomy site. A 1 4.5 Czech Elizabeth Path, 23 cm long hemodialysis catheter was advanced through the tunneled tract. Fluoroscopy was used to advance a guidewire through the internal jugular vein into the inferior vena cava. Following serial dilatation, a 15 Czech peel-away sheath was introduced, though which was adva nced the catheter into the right atrium. The catheter tip position was confirmed with fluoroscopy. Th ere was satisfactory flow in both lumens. The catheter lumens were flushed with saline and heparin wa s left indwelling in the catheter. A post-procedure image of the chest was obtained. The neck incisio n site was closed Dermabond and dressed sterilely. The catheter was sutured at the skin surface and e xit site also dressed sterilely. No immediate complication was identified. DAP 151 FLUOROSCOPY TIME: 1.8 minutes. SEDATION: Dr. Logan Bell was personally responsible for the administration of moderate sedation during the procedure performed, including the use of an independent trained observer who had no other duties during the procedure. The drugs utilized were IV fentanyl and versed (see nursing log for details). The total time of supervision by the attending physician was approximately 30 minutes. FINDINGS: Widely patent right IJV. Post procedure image demonstrates smooth course of the hemodialysi s catheter with the tip in the right atrium. IMPRESSION: Successful placement of 14.5 Czech Elizabeth Path, 23 cm long hemodialysis catheter through right college intern al jugular vein. Plan: Please contact IR for removal when no longer needed.
[2024-05-14] MEDS: FAMOTIDINE 20 MG TAB PO SCH (11:47)
[2024-05-14] MEDS: cefTRIAXone 1GM/50ML D5W 50 ML IV SCH (11:47)
--- NOTE | 2024-05-14 12:50 | DVHPN2 ---
Progress Note Date Seen: May 14, 2024 Medical Necessity Reason Pt with a Central, PICC or Fol: Yes The following are medically ne: Sainz Catheter Subjective Patient reports: No new complaints Other Systems: Patient seen and examined by myself today in follow-up Objective vital signs Vital Sign Date Time Temp Pulse Resp B/P (MAP) Pulse Ox O2 Delivery O2 Flow Rate FiO2 05/14/24 11:11 64 13 126/45 (72) 94 05/14/24 10:41 97.9 97.9 05/14/24 08:00 Nasal Cannula* 2 28 Total Intake and Output 05/13/24 05/13/24 05/14/24 15:00 23:00 07:00 Intake Total 180 ml 100 ml 50 ml Output Total 150 ml 225 ml Balance 180 ml -50 ml -175 ml medications Current Medications Medications Dose Ordered Sig/Francoise Route Start Time Stop Time Status Last Admin Dose Admin Insulin Glargine 15 units QAM SC 05/14/24 07:00 Hold Diagnostic Test (Pha) 1 strip ACHS 05/13/24 11:30 05/14/24 11:47 1 STRIP Insulin Human Regular HS SC 05/13/24 22:00 Insulin Human Regular AC SC 05/13/24 11:30 05/13/24 17:41 2 UNITS Dextrose 50 ml UD PRN IV 05/13/24 11:00 05/14/24 06:02 50 ML Zirconium Oxide 10 gm TID PO 05/13/24 14:00 05/13/24 21:22 10 GM Famotidine 20 mg DAILY PO 05/14/24 10:00 05/14/24 11:47 20 MG Heparin Sodium (Porcine) 5,000 units Q12HR SC 05/13/24 22:00 Clindamycin Phosphate 50 ml @ 50 mls/hr Q8HR IV 05/13/24 14:00 05/14/24 05:43 50 MLS/HR Ceftriaxone Sodium 50 ml @ 100 mls/hr DAILY@09 IV 05/14/24 09:00 05/14/24 11:47 100 MLS/HR Furosemide 80 mg BIDD IV 05/13/24 18:00 05/14/24 05:45 80 MG Albuterol 2.5 mg Q6HPRN PRN NEB 05/13/24 15:00 Ipratropium [place] 0.5 mg Q6HPRN PRN NEB 05/13/24 15:00 Ergocalciferol 50,000 unit Q7D PO 05/14/24 16:00 Examination: LUNGS:Normal, CVS:Normal, MSK:Normal laboratory and microbiology Laboratory Tests 05/14/24 06:59 Test 05/14/24 06:59 Range/Units Serum Glucose 104 74-106 mg/dL Problem List/Assessment/Plan Problem List/Assessment/Plan Acute kidney injury superimposed Chronic Kidney Disease stage IV secondary hemodynamic mediated, 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 requiring initiation of HD 3 x weekly Chronic diastolic heart failure Diabetes mellitus type 2 Hypertension Hyperkalemia Anemia of chronic kidney disease Hyperphosphatemia Status post tunneled hemodialysis catheter 05/14 REC: Hemodialysis today Epogen 10,000 IV post HD 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
--- NOTE | 2024-05-14 15:58 | DVHPNRES ---
Progress Note Date Seen: May 14, 2024 Resident Creating Document: SHELBI GUEVARA RESIDENT Medical Necessity Reason Pt with a Central, PICC or Fol: Yes The following are medically ne: Sainz Catheter Subjective Review of Systems Patient is a 89-year-old female with past medical history of hypertension, CKD stage IV/5, diabetes, dementia, 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 According to the patient, she was brought in by her daughter after she experienced an episode of feeling dizzy, patient notes she was lying down when all of a sudden she started feeling dizziness which lasted for 30 minutes. Patient reports that she often feels dizzy, usually when she sitting the dizziness will come all of a sudden. Patient also notes that she has loss of appetite, has not had a meal for the last 2 days. Denies any dysphagia or odynophagia, just states lack of appetite as the reason for not eating. Past surgical history: Splenectomy Home medications: Allopurinol, atorvastatin, furosemide, glipizide, linagliptin, losartan Past Hospitalization: March 2024 for sepsis due to UTI Social & Personal history: Patient lives with her daughter. Denies using tobacco, alcohol, drugs. Allergies: Denies Patient seen and examined at bedside. Patient is alert and oriented to time, place person and responding to all questions. Objective vital signs Vital Sign Date Time Temp Pulse Resp B/P (MAP) Pulse Ox O2 Delivery O2 Flow Rate FiO2 05/14/24 13:00 98.5 65 20 123/40 (67) 94 98.5 05/14/24 08:00 Nasal Cannula* 2 28 Total Intake and Output 05/13/24 05/13/24 05/14/24 15:00 23:00 07:00 Intake Total 180 ml 100 ml 50 ml Output Total 150 ml 225 ml Balance 180 ml -50 ml -175 ml medications Current Medications Medications Dose Ordered Sig/Francoise Route Start Time Stop Time Status Last Admin Dose Admin Insulin Glargine 15 units QAM SC 05/14/24 07:00 Hold Diagnostic Test (Pha) 1 strip ACHS 05/13/24 11:30 05/14/24 11:47 1 STRIP Insulin Human Regular HS SC 05/13/24 22:00 Insulin Human Regular AC SC 05/13/24 11:30 05/13/24 17:41 2 UNITS Dextrose 50 ml UD PRN IV 05/13/24 11:00 05/14/24 06:02 50 ML Zirconium Oxide 10 gm TID PO 05/13/24 14:00 05/13/24 21:22 10 GM Famotidine 20 mg DAILY PO 05/14/24 10:00 05/14/24 11:47 20 MG Heparin Sodium (Porcine) 5,000 units Q12HR SC 05/13/24 22:00 Clindamycin Phosphate 50 ml @ 50 mls/hr Q8HR IV 05/13/24 14:00 05/14/24 13:41 50 MLS/HR Ceftriaxone Sodium 50 ml @ 100 mls/hr DAILY@09 IV 05/14/24 09:00 05/14/24 11:47 100 MLS/HR Furosemide 80 mg BIDD IV 05/13/24 18:00 05/14/24 05:45 80 MG Albuterol 2.5 mg Q6HPRN PRN NEB 05/13/24 15:00 Ipratropium [place] 0.5 mg Q6HPRN PRN NEB 05/13/24 15:00 Ergocalciferol 50,000 unit Q7D PO 05/14/24 16:00 Examination General Appearance: Cooperative. Well developed. Well nourished. NAD Head Exam: Normal inspection Neck Exam: Normal inspection. Non-tender. Normal alignment Pulmonary/Respiratory: Chest non-tender. Clear bilateral breath sounds, no crackles, wheezing. Cardiovascular/Chest: Regular rate and rhythm. Systolic murmur heard. No JVD. Peripheral Pulses: 2+ Radial (R). 2+ Radial (L). 2+ Pedal (R). 2+ Pedal (L) Abdominal Exam: Normal bowel sounds. Soft. normal abdomen, no visible veins, Nontender. No hepatospenomegaly. No masses Ankle Exam: Negative ankle edema Lower extremities: 1+ lower extremity edema. Bilateral lower extremity erythema. Scabbing ulceration noted on the right lower extremity anterior aspect. Upper extremities: Bilateral upper extremity erythema, mild tenderness to palpation. Erythema well demarcated in the right upper extremity, poorly demarcated in the left upper extremity. Neuro/Mental Status: A&O x4. Coherent. Thoughts/Psych: Normal thought pattern. Appropriate mood and affect. Good judgement and insight Skin Exam: Normal inspection. Normal color. Warm. Dry Neurologic: Right arm resting tremor laboratory and microbiology Laboratory Tests 12/31/24 06:59 Test 05/14/24 06:59 Range/Units Serum Glucose 104 74-106 mg/dL Labs and/or images reviewed: Labs reviewed by me, Image(s) reviewed by me Problem List/Assessment/Plan Problem List/Assessment/Plan Acute on chronic diastolic CHF, EF 55% Acute hypoxic respiratory failure due to above, on 2 L O2 via [place] Cardiorenal syndrome - CXR: Findings most likely represent development of congestive failure when compared to 03/21/2024 - IV Lasix 80 mg b.i.d. 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 t.i.d. - nephrology on board; scheduled for dialysis today on 05/14/2024 - Epogen 73306 IV post dialysis Type 2 diabetes, Hb A1c 7.1 Hypertension, BP currently running on the softer side - insulin Lantus 15 units q.a.m. - holding home medication amlodipine 10 mg due to bilateral lower extremity swelling PUD prophylaxis: Pepcid 20 mg DVT prophylaxis: Heparin 5000 units b.i.d. Goals of care: Full code, discussed for >16 minutes on 05/13/24 Plan discussed with patient Plan discussed with Dr. Suarez Plan discussed with: Patient, Other (RN) My Orders My Orders Orders - SHELBI GUEVARA Procedure Category Date Status Time Ergocalciferol PHA 05/14/24 In Process (Vitamin D 50,000 16:00 Date of Service: May 14, 2024 Billing Provider: DOMINICK SUAREZ MD Common Visit Codes: [id number] INP/OBS CARE(HIGH) SHELBI GUEVARA May 14, 2024 15:58 DOMINICK SUAREZ MD May 15, 2024 08:30
[2024-05-14] MEDS: ERGOCALCIFEROL 50,000 UNIT(1.25MG) CAP PO SCH (16:20)
[2024-05-14 17:02] LABS: Urine Bacteria FEW /hpf (None Seen); Urine Blood 3+ /uL (Negative); Urine Clarity Ex.Turbid (Clear); Urine Color Light-Orange (Yellow); Urine Hyaline Cast MANY /lpf (0 - 2); Urine Mucus FEW (None Seen); Urine Protein, UAD 2+ (Negative); Urine Specific Gravity 1.012 (1.001-1.035); Urine Squamous Epithelial Cell FEW /hpf (<5); Urine Urobilinogen Normal (Negative); Urine WBC 127 /hpf (0 - 5); Urine WBC Clumps PRESENT /hpf (None Seen); Urine pH 5.5 (5.0-9.0)
[2024-05-14 17:15] LABS: Creatinine, Urine 104.1 mg/dL (30.0-125.0)
[2024-05-14 18:00] LABS: Protein, Urine 167.3 mg/dL (1-14)
[2024-05-14 18:03] LABS: Creatinine, Urine 105.72 mg/dL (30.0-125.0); Urine Protein/Creatinine Ratio 1.58
[2024-05-14] MEDS: EPOETIN ALFA-EPBX 10,000 UNIT/1ML VIAL SC ONE (21:00)
[2024-05-15] VITALS (11 sets, daily range): BP systolic 121–156; BP diastolic 42–92; PULSE 60–83; RESP 15–20; TEMP 97.4–98.3; O2SAT 92–100
[2024-05-15 06:38] LABS: Basophils # (auto) 0 10 ^3/uL (0-0.2); Basophils % (auto) 0.1 % (0.0-2.0); Eosinophils # (auto) 0.2 10 ^3/uL (0-0.8); Eosinophils % (auto) 3.3 % (0.0-7.0); Hematocrit 28.7 % (36.0-46.0); Lymphocytes # (auto) 0.4 10 ^3/uL (0.4-5.4); Lymphocytes % (auto) 7.7 % (10.0-50.0); Mean Corpuscular Hemoglobin 27.4 pg (28.0-32.0); Mean Corpuscular Hgb Conc. 31.3 g/dL (32.0-36.0); Mean Corpuscular Volume 87.6 fL (80.0-100.0); Monocytes # (auto) 0.2 10 ^3/uL (0-1.3); Monocytes % (auto) 4.8 % (0.0-12.0); Neutrophils % (auto) 84.1 % (37.0-80.0); Nucleated Red Blood Cells % 0.4 %; Platelet Count (auto) 150 10^3/uL (140-450); Red Blood Cells 3.28 10^6/uL (4.0-5.20); White Blood Cell 4.8 10^3/uL (4.4-10.8)
[2024-05-15 06:56] LABS: Chloride 105 mmol/L (98-107); Potassium 4.4 mmol/L (3.5-5.1); Sodium 140 mmol/L (136-145)
[2024-05-15 06:57] LABS: Anion Gap 11 (5-15); Carbon Dioxide 24 mmol/L (20-31)
[2024-05-15] MEDS: IPRATROPIUM BROM 0.5 MG/2.5ML INH SOL NEB PRN (07:01)
[2024-05-15] MEDS: ALBUTEROL SULF 2.5 MG/0.5ML(0.5%) NEB SOLN NEB PRN (07:01)
[2024-05-15 07:02] LABS: BUN/Creatinine Ratio 22.8 (10.0-20.0); Calcium 8.7 mg/dL (8.7-10.4)
[2024-05-15 07:35] LABS: Glucose 69 mg/dL (74-106)
[2024-05-15 07:36] LABS: Blood Urea Nitrogen 103 mg/dL (9-23)
--- NOTE | 2024-05-15 11:17 | DVHPN2 ---
Progress Note Date Seen: May 15, 2024 Medical Necessity Reason Pt with a Central, PICC or Fol: Yes The following are medically ne: Sainz Catheter Subjective Patient reports: Feels better Review of Systems: HEENT:Normal Objective vital signs Vital Sign Date Time Temp Pulse Resp B/P (MAP) Pulse Ox O2 Delivery O2 Flow Rate FiO2 05/15/24 09:00 97.4 74 15 124/42 (69) 96 97.4 05/14/24 20:00 Nasal Cannula* 2 28 Total Intake and Output 05/14/24 05/14/24 05/15/24 15:00 23:00 07:00 Intake Total 50 ml 660 ml 340 ml Output Total 200 ml Balance 50 ml 660 ml 140 ml medications Current Medications Medications Dose Ordered Sig/Francoise Route Start Time Stop Time Status Last Admin Dose Admin Insulin Glargine 15 units QAM SC 05/14/24 07:00 Hold Diagnostic Test (Pha) 1 strip ACHS 05/13/24 11:30 05/15/24 05:07 1 STRIP Insulin Human Regular HS SC 05/13/24 22:00 Insulin Human Regular AC SC 05/13/24 11:30 05/13/24 17:41 2 UNITS Dextrose 50 ml UD PRN IV 05/13/24 11:00 05/14/24 06:02 50 ML Zirconium Oxide 10 gm TID PO 05/13/24 14:00 05/15/24 05:07 10 GM Famotidine 20 mg DAILY PO 05/14/24 10:00 05/15/24 09:09 20 MG Heparin Sodium (Porcine) 5,000 units Q12HR SC 05/13/24 22:00 05/14/24 21:27 5,000 UNITS Clindamycin Phosphate 50 ml @ 50 mls/hr Q8HR IV 05/13/24 14:00 05/15/24 05:07 50 MLS/HR Ceftriaxone Sodium 50 ml @ 100 mls/hr DAILY@09 IV 05/14/24 09:00 05/15/24 09:09 100 MLS/HR Furosemide 80 mg BIDD IV 05/13/24 18:00 05/15/24 05:23 80 MG Albuterol 2.5 mg Q6HPRN PRN NEB 05/13/24 15:00 05/15/24 07:01 2.5 MG Ipratropium [place] 0.5 mg Q6HPRN PRN NEB 05/13/24 15:00 05/15/24 07:01 0.5 MG Ergocalciferol 50,000 unit Q7D PO 05/14/24 16:00 05/14/24 16:20 50,000 UNIT Examination: GENERAL:Normal, CVS:Normal, ABDOMEN:Normal laboratory and microbiology Laboratory Tests 05/15/24 04:55 Test 05/15/24 04:55 Range/Units Serum Glucose 69 L 74-106 mg/dL Microbiology Date/Time Source Procedure Growth Status 05/14/24 16:00 Voided Urine Urine Culture - Preliminary Resulted Problem List/Assessment/Plan Problem List/Assessment/Plan new ESRD Chronic diastolic heart failure Diabetes mellitus type 2 Hypertension Anemia of chronic kidney disease Hyperphosphatemia Status post tunneled hemodialysis catheter 05/14 Hemodialysis today Epogen 6000 units 3x a week SubQ, Loading IV iron due to iron deficiency 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
--- NOTE | 2024-05-15 11:23 | DVH ---
CHEST RADIOGRAPH Indication: shortness of breath Technique: Single frontal view of the chest was obtained COMPARISON: XY CHEST PORTABLE on DOS: 05/12/24, XY CHEST XRAY 1 VIEW on DOS: 03/21/24, XY CHEST PORTAB LE on DOS: 03/21/24, XY CHEST XRAY 1 VIEW on DOS: 03/19/24, XY CHEST PORTABLE on DOS: 03/18/24 FINDINGS: Lines and Tubes: Tunneled right central venous catheter in satisfactory position. Lungs: Congestion. Pleura: Small bilateral pleural effusions. No pneumothorax. Cardiomediastinal contours: Unremarkable Bones: Unremarkable IMPRESSION: Unchanged pulmonary vascular congestion
[2024-05-15] MEDS: SEVELAMER 800 MG TAB PO SCH (12:43)
[2024-05-15] MEDS: IRON SUCROSE COMPLEX 110 ML IV SCH (12:44)
--- NOTE | 2024-05-15 15:13 | DVHPNRES ---
Progress Note Date Seen: May 15, 2024 Resident Creating Document: SHELBI GUEVARA RESIDENT Medical Necessity Reason Pt with a Central, PICC or Fol: Yes The following are medically ne: Sainz Catheter Subjective Review of Systems Patient is a 89-year-old female with past medical history of hypertension, CKD stage IV/5, diabetes, dementia, 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 According to the patient, she was brought in by her daughter after she experienced an episode of feeling dizzy, patient notes she was lying down when all of a sudden she started feeling dizziness which lasted for 30 minutes. Patient reports that she often feels dizzy, usually when she sitting the dizziness will come all of a sudden. Patient also notes that she has loss of appetite, has not had a meal for the last 2 days. Denies any dysphagia or odynophagia, just states lack of appetite as the reason for not eating. Past surgical history: Splenectomy Home medications: Allopurinol, atorvastatin, furosemide, glipizide, linagliptin, losartan Past Hospitalization: March 2024 for sepsis due to UTI Social & Personal history: Patient lives with her daughter. Denies using tobacco, alcohol, drugs. Allergies: Denies Patient seen and examined at bedside. Patient is alert and oriented to place person but not to time, responding to most questions. Objective vital signs Vital Sign Date Time Temp Pulse Resp B/P (MAP) Pulse Ox O2 Delivery O2 Flow Rate FiO2 05/15/24 09:00 97.4 74 15 124/42 (69) 96 97.4 05/15/24 08:00 Nasal Cannula* 2 28 Total Intake and Output 05/14/24 05/14/24 05/15/24 15:00 23:00 07:00 Intake Total 50 ml 660 ml 340 ml Output Total 200 ml Balance 50 ml 660 ml 140 ml medications Current Medications Medications Dose Ordered Sig/Francoies Route Start Time Stop Time Status Last Admin Dose Admin Insulin Glargine 15 units QAM SC 05/14/24 07:00 Hold Diagnostic Test (Pha) 1 strip ACHS 05/13/24 11:30 05/15/24 11:30 1 STRIP Insulin Human Regular HS SC 05/13/24 22:00 Insulin Human Regular AC SC 05/13/24 11:30 05/15/24 11:30 3 UNITS Dextrose 50 ml UD PRN IV 05/13/24 11:00 05/14/24 06:02 50 ML Famotidine 20 mg DAILY PO 05/14/24 10:00 05/15/24 09:09 20 MG Heparin Sodium (Porcine) 5,000 units Q12HR SC 05/13/24 22:00 05/15/24 12:15 5,000 UNITS Clindamycin Phosphate 50 ml @ 50 mls/hr Q8HR IV 05/13/24 14:00 05/15/24 05:07 50 MLS/HR Ceftriaxone Sodium 50 ml @ 100 mls/hr DAILY@09 IV 05/14/24 09:00 05/15/24 09:09 100 MLS/HR Furosemide 80 mg BIDD IV 05/13/24 18:00 05/15/24 05:23 80 MG Albuterol 2.5 mg Q6HPRN PRN NEB 05/13/24 15:00 05/15/24 07:01 2.5 MG Ipratropium [place] 0.5 mg Q6HPRN PRN NEB 05/13/24 15:00 05/15/24 07:01 0.5 MG Ergocalciferol 50,000 unit Q7D PO 05/14/24 16:00 05/14/24 16:20 50,000 UNIT Iron Sucrose 110 ml @ 110 mls/hr DAILY@1200 IV 05/15/24 12:00 05/19/24 12:59 05/15/24 12:44 110 MLS/HR Epoetin Des-epbx 6,000 unit TUTHSA SC 05/16/24 10:00 UNV Sevelamer HCl 1,600 mg TIDWM PO 05/15/24 12:00 05/15/24 12:43 1,600 MG Examination General Appearance: Cooperative. Well developed. Well nourished. NAD Head Exam: Normal inspection Neck Exam: Normal inspection. Non-tender. Normal alignment Pulmonary/Respiratory: Chest non-tender. Clear bilateral breath sounds, no crackles, wheezing. Cardiovascular/Chest: Regular rate and rhythm. Systolic murmur heard. No JVD. Peripheral Pulses: 2+ Radial (R). 2+ Radial (L). 2+ Pedal (R). 2+ Pedal (L) Abdominal Exam: Normal bowel sounds. Soft. normal abdomen, no visible veins, Nontender. No hepatospenomegaly. No masses Ankle Exam: Negative ankle edema Lower extremities: 1+ lower extremity edema. Bilateral lower extremity erythema. Scabbing ulceration noted on the right lower extremity anterior aspect. Upper extremities: Bilateral upper extremity erythema, mild tenderness to palpation. Erythema well demarcated in the right upper extremity, poorly demarcated in the left upper extremity, improving Neuro/Mental Status: A&O x2. Coherent. Skin Exam: Normal inspection. Normal color. Warm. Dry Neurologic: Right arm resting tremor laboratory and microbiology Laboratory Tests 05/15/24 04:55 Test 05/15/24 04:55 Range/Units Serum Glucose 69 L 74-106 mg/dL Microbiology Date/Time Source Procedure Growth Status 05/14/24 16:00 Voided Urine Urine Culture - Preliminary Resulted Labs and/or images reviewed: Labs reviewed by me, Image(s) reviewed by me Problem List/Assessment/Plan Problem List/Assessment/Plan Uremic encephalopathy - ordered head CT - scheduled for dialysis today 05/15/2024 Acute on chronic diastolic CHF, EF 55% Acute hypoxic respiratory failure due to above, on 2 L O2 via [place] Cardiorenal syndrome - CXR: Findings most likely represent development of congestive failure when compared to 03/21/2024 - IV Lasix 80 mg b.i.d. 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 t.i.d. - nephrology on board; scheduled for dialysis today on 05/14/2024 - Epogen 02288 IV post dialysis Type 2 diabetes, Hb A1c 7.1 Hypertension, BP currently running on the softer side - insulin Lantus 15 units q.a.m. - holding home medication amlodipine 10 mg due to bilateral lower extremity swelling PUD prophylaxis: Pepcid 20 mg DVT prophylaxis: Heparin 5000 units b.i.d. Goals of care: Full code, discussed for >16 minutes on 05/13/24 Plan discussed with patient Plan discussed with Dr. Suarez Plan discussed with: Patient, Other (RN) My Orders My Orders Orders - SHELBI GUEVARA RESIDENT Procedure Category Date Status Time Renal DIET 05/14/24 Transmitted Standard(2gna,3gk,Lopho) Dinner Urine Bacterial SHAYNA 05/14/24 In Process Culture 17:34 Blister Fluid Filled GRACE 05/15/24 In Process Or Denude 13:[address] 05/15/24 Logged 14:51 Dietary Evaluation Review Comments: Follow CCHO-60 Renal standard 2g Na 3K Low Phos diet Expected Outcomes/Goals: controlled DM, controlled Renal disease with diet and dialysis Date of Service: May 15, 2024 Billing Provider: DOMINICK SUAREZ MD Common Visit Codes: [id number] INP/OBS CARE(HIGH) SHELBI GUEVARA RESIDENT May 15, 2024 15:13 DOMINICK SUAREZ MD May 16, 2024 16:50
--- NOTE | 2024-05-15 17:33 | DVH ---
EXAM: CT HEAD WITHOUT CONTRAST INDICATION: encephalopathy TECHNIQUE: CT of the head without intravenous contrast. Radiation Dose Information: CT Dose: CTDI volume is 55.11 mGy. Dose-length product is 773.2 mGy*cm The dose indicators for CT are the volume Computed Tomography (CT) Dose Index (CTDIvol) and the Dose Length Product (DLP), and are measured in units of mGy and mGy-cm, respectively. These indicators are not patient dose, but values generated from the CT scanner acquisition factors. The report includes radiation exposure data for exposures received during this examination. COMPARISON: CT HEAD WITHOUT CONTRAST on DOS: 03/18/24, HEAD WITHOUT CONTRAST on DOS: 03/01/22 FINDINGS: There is no evidence of acute intracranial hemorrhage, extra-axial collection, mass effect, midline s hift, herniation or hydrocephalus. The ventricles, sulci and cisterns are age appropriate. The dobbs-white differentiation is intact. Patchy periventricular and subcortical white matter hypoattenuation is nonspecific but may be related to small vessel ischemic disease. The visualized paranasal sinuses and mastoid air cells are clear. The surrounding soft tissues and osseous structures are unremarkable. IMPRESSION: 1. No acute intracranial hemorrhage. 2. No CT findings of territorial ischemia. HS:Y
[2024-05-16] VITALS (11 sets, daily range): BP systolic 125–153; BP diastolic 50–63; PULSE 60–85; RESP 18–20; TEMP 97.6–98.7; O2SAT 93–100
[2024-05-16 06:16] LABS: Anion Gap 10 (5-15); Carbon Dioxide 26 mmol/L (20-31); Chloride 104 mmol/L (98-107); Sodium 140 mmol/L (136-145)
[2024-05-16 06:20] LABS: Basophils # (auto) 0 10 ^3/uL (0-0.2); Basophils % (auto) 0.3 % (0.0-2.0); Eosinophils # (auto) 0.2 10 ^3/uL (0-0.8); Eosinophils % (auto) 4.8 % (0.0-7.0); Hematocrit 29.1 % (36.0-46.0); Lymphocytes # (auto) 0.4 10 ^3/uL (0.4-5.4); Lymphocytes % (auto) 10.4 % (10.0-50.0); Mean Corpuscular Hemoglobin 27.2 pg (28.0-32.0); Mean Corpuscular Volume 87.9 fL (80.0-100.0); Monocytes # (auto) 0.3 10 ^3/uL (0-1.3); Monocytes % (auto) 7.3 % (0.0-12.0); Neutrophils # (auto) 3.3 10 ^3/uL (1.6-8.6); Neutrophils % (auto) 77.2 % (37.0-80.0); Nucleated Red Blood Cells % 0.5 %; Platelet Count (auto) 132 10^3/uL (140-450); Red Blood Cells 3.32 10^6/uL (4.0-5.20); Red Cell Distribution Width 16.8 % (11.8-14.3); White Blood Cell 4.2 10^3/uL (4.4-10.8)
[2024-05-16 06:22] LABS: BUN/Creatinine Ratio 19.5 (10.0-20.0); Glucose 88 mg/dL (74-106)
[2024-05-16 06:28] LABS: Blood Urea Nitrogen 67 mg/dL (9-23); Calcium 8.5 mg/dL (8.7-10.4); Potassium 3.4 mmol/L (3.5-5.1)
[2024-05-16] MEDS: POTASSIUM EFFERVESENT TAB 25 MEQ PO ONE (08:57)
--- NOTE | 2024-05-16 09:30 | DVHPN2 ---
Progress Note Date Seen: May 16, 2024 Medical Necessity Reason Pt with a Central, PICC or Fol: Yes The following are medically ne: Sainz Catheter Subjective Patient reports: Feels better Objective vital signs Vital Sign Date Time Temp Pulse Resp B/P (MAP) Pulse Ox O2 Delivery O2 Flow Rate FiO2 05/16/24 09:00 98.6 75 20 125/50 (75) 98 98.6 05/15/24 23:48 2.0 28 05/15/24 21:00 Nasal Cannula* Total Intake and Output 05/15/24 05/15/24 05/16/24 15:00 23:00 07:00 Intake Total 390 ml 150 ml Output Total 325 ml 200 ml Balance 65 ml -50 ml medications Current Medications Medications Dose Ordered Sig/Francoies Route Start Time Stop Time Status Last Admin Dose Admin Insulin Glargine 15 units QAM SC 05/14/24 07:00 Hold Diagnostic Test (Pha) 1 strip ACHS 05/13/24 11:30 05/16/24 06:33 1 STRIP Insulin Human Regular HS SC 05/13/24 22:00 Insulin Human Regular AC SC 05/13/24 11:30 05/15/24 11:30 3 UNITS Dextrose 50 ml UD PRN IV 05/13/24 11:00 05/14/24 06:02 50 ML Famotidine 20 mg DAILY PO 05/14/24 10:00 05/16/24 09:06 20 MG Heparin Sodium (Porcine) 5,000 units Q12HR SC 05/13/24 22:00 05/15/24 12:15 5,000 UNITS Clindamycin Phosphate 50 ml @ 50 mls/hr Q8HR IV 05/13/24 14:00 05/16/24 05:33 50 MLS/HR Ceftriaxone Sodium 50 ml @ 100 mls/hr DAILY@09 IV 05/14/24 09:00 05/16/24 08:57 100 MLS/HR Furosemide 80 mg BIDD IV 05/13/24 18:00 05/16/24 05:34 80 MG Albuterol 2.5 mg Q6HPRN PRN NEB 05/13/24 15:00 05/15/24 07:01 2.5 MG Ipratropium [place] 0.5 mg Q6HPRN PRN NEB 05/13/24 15:00 05/15/24 07:01 0.5 MG Ergocalciferol 50,000 unit Q7D PO 05/14/24 16:00 05/14/24 16:20 50,000 UNIT Iron Sucrose 110 ml @ 110 mls/hr DAILY@1200 IV 05/15/24 12:00 05/19/24 12:59 05/15/24 12:44 110 MLS/HR Epoetin Des-epbx 6,000 unit TUTHSA SC 05/16/24 21:00 Sevelamer HCl 1,600 mg TIDWM PO 05/15/24 12:00 05/16/24 08:57 1,600 MG Examination: GENERAL:Normal, NECK:Normal, CVS:Normal, ABDOMEN:Normal laboratory and microbiology Laboratory Tests 05/16/24 05:10 Test 05/16/24 05:10 Range/Units Serum Glucose 88 74-106 mg/dL Microbiology Date/Time Source Procedure Growth Status 05/14/24 16:00 Voided Urine Urine Culture - Preliminary Resulted Problem List/Assessment/Plan Problem List/Assessment/Plan new ESRD Chronic diastolic heart failure Diabetes mellitus type 2 Hypertension Anemia of chronic kidney disease Hyperphosphatemia Status post tunneled hemodialysis catheter 05/14 Hemodialysis tentative Monday or Monday Epogen 6000 units 3x a week SubQ, Loading IV iron due to iron deficiency 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 Renal diet phos binder with each meal Social service for outpatient HD chair time at [facility]- pending insurance approval Plan discussed with: Patient My Orders My Orders Orders - LADONNA NICHOLS MD Procedure Category Date Status Time Iron Sucrose Complex PHA 05/15/24 In Process (Venofer) 12:00 Epoetin Des-Epbx PHA 05/16/24 In Process (Retacrit) 21:00 Sevelamer (Renagel) PHA 05/15/24 In Process 12:00 Dietary Evaluation Review Comments: Follow CCHO-60 Renal standard 2g Na 3K Low Phos diet Expected Outcomes/Goals: controlled DM, controlled Renal disease with diet and dialysis LADONNA NICHOLS MD May 16, 2024 09:30
[2024-05-16 10:33] LABS: Hepatitis A Ab IgM Negative; Hepatitis B Core IgM Negative (Negative); Hepatitis B Surface Antigen Negative (Negative); Hepatitis C Antibody Negative (Negative)
--- NOTE | 2024-05-16 20:02 | DVHPNRES ---
Progress Note Date Seen: May 16, 2024 Resident Creating Document: SHELBI GUEVARA RESIDENT Medical Necessity Reason Pt with a Central, PICC or Fol: Yes The following are medically ne: Sainz Catheter Subjective Review of Systems Patient is a 89-year-old female with past medical history of hypertension, CKD stage IV/5, diabetes, dementia, 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 According to the patient, she was brought in by her daughter after she experienced an episode of feeling dizzy, patient notes she was lying down when all of a sudden she started feeling dizziness which lasted for 30 minutes. Patient reports that she often feels dizzy, usually when she sitting the dizziness will come all of a sudden. Patient also notes that she has loss of appetite, has not had a meal for the last 2 days. Denies any dysphagia or odynophagia, just states lack of appetite as the reason for not eating. Past surgical history: Splenectomy Home medications: Allopurinol, atorvastatin, furosemide, glipizide, linagliptin, losartan Past Hospitalization: March 2024 for sepsis due to UTI Social & Personal history: Patient lives with her daughter. Denies using tobacco, alcohol, drugs. Allergies: Denies Patient seen and examined at bedside. Patient is alert and oriented to place person but not to time, responding to most questions. Objective vital signs Vital Sign Date Time Temp Pulse Resp B/P (MAP) Pulse Ox O2 Delivery O2 Flow Rate FiO2 05/16/24 18:09 125/63 05/16/24 16:59 98.4 85 18 97 98.4 05/16/24 09:49 Nasal Cannula* 2 28 Total Intake and Output 05/15/24 05/15/24 05/16/24 15:00 23:00 07:00 Intake Total 390 ml 150 ml Output Total 325 ml 200 ml Balance 65 ml -50 ml medications Current Medications Medications Dose Ordered Sig/Francoise Route Start Time Stop Time Status Last Admin Dose Admin Insulin Glargine 15 units QAM SC 05/14/24 07:00 Hold Diagnostic Test (Pha) 1 strip ACHS 05/13/24 11:30 05/16/24 18:09 1 STRIP Insulin Human Regular HS SC 05/13/24 22:00 Insulin Human Regular AC SC 05/13/24 11:30 05/15/24 11:30 3 UNITS Dextrose 50 ml UD PRN IV 05/13/24 11:00 05/14/24 06:02 50 ML Famotidine 20 mg DAILY PO 05/14/24 10:00 05/16/24 09:06 20 MG Heparin Sodium (Porcine) 5,000 units Q12HR SC 05/13/24 22:00 05/15/24 12:15 5,000 UNITS Clindamycin Phosphate 50 ml @ 50 mls/hr Q8HR IV 05/13/24 14:00 05/16/24 14:30 50 MLS/HR Ceftriaxone Sodium 50 ml @ 100 mls/hr DAILY@09 IV 05/14/24 09:00 05/16/24 08:57 100 MLS/HR Furosemide 80 mg BIDD IV 05/13/24 18:00 05/16/24 18:09 80 MG Albuterol 2.5 mg Q6HPRN PRN NEB 05/13/24 15:00 05/15/24 07:01 2.5 MG Ipratropium [place] 0.5 mg Q6HPRN PRN NEB 05/13/24 15:00 05/15/24 07:01 0.5 MG Ergocalciferol 50,000 unit Q7D PO 05/14/24 16:00 05/14/24 16:20 50,000 UNIT Iron Sucrose 110 ml @ 110 mls/hr DAILY@1200 IV 05/15/24 12:00 05/19/24 12:59 05/16/24 12:30 110 MLS/HR Epoetin Des-epbx 6,000 unit TUTHSA SC 05/16/24 21:00 Sevelamer HCl 1,600 mg TIDWM PO 05/15/24 12:00 05/16/24 18:09 1,600 MG Examination General Appearance: Cooperative. Well developed. Well nourished. NAD Head Exam: Normal inspection Neck Exam: Normal inspection. Non-tender. Normal alignment Pulmonary/Respiratory: Chest non-tender. Clear bilateral breath sounds, no crackles, wheezing. Cardiovascular/Chest: Regular rate and rhythm. Systolic murmur heard. No JVD. Peripheral Pulses: 2+ Radial (R). 2+ Radial (L). 2+ Pedal (R). 2+ Pedal (L) Abdominal Exam: Normal bowel sounds. Soft. normal abdomen, no visible veins, Nontender. No hepatospenomegaly. No masses Ankle Exam: Negative ankle edema Lower extremities: 1+ lower extremity edema. Bilateral lower extremity erythema. Scabbing ulceration noted on the right lower extremity anterior aspect. Upper extremities: Bilateral upper extremity erythema, mild tenderness to palpation. Erythema well demarcated in the right upper extremity, poorly demarcated in the left upper extremity, improving Neuro/Mental Status: A&O x2. Coherent. Skin Exam: Normal inspection. Normal color. Warm. Dry Neurologic: Right arm resting tremor laboratory and microbiology Laboratory Tests 05/16/24 05:10 Test 05/16/24 05:10 Range/Units Serum Glucose 88 74-106 mg/dL Microbiology Date/Time Source Procedure Growth Status 05/14/24 16:00 Voided Urine Urine Culture - Preliminary Resulted Labs and/or images reviewed: Labs reviewed by me, Image(s) reviewed by me Problem List/Assessment/Plan Problem List/Assessment/Plan Uremic encephalopathy - ordered head CT - scheduled for dialysis today 05/15/2024 Acute on chronic diastolic CHF, EF 55% Acute hypoxic respiratory failure due to above, on 2 L O2 via DE Cardiorenal syndrome - CXR: Findings most likely represent development of congestive failure when compared to 03/21/2024 - IV Lasix 80 mg b.i.d. 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 t.i.d. - nephrology on board; scheduled for dialysis today on 05/14/2024 - Epogen [id number] IV post dialysis Type 2 diabetes, Hb A1c 7.1 Hypertension, BP currently running on the softer side - insulin Lantus 15 units q.a.m. - holding home medication amlodipine 10 mg due to bilateral lower extremity swelling PUD prophylaxis: Pepcid 20 mg DVT prophylaxis: Heparin 5000 units b.i.d. Goals of care: Full code, discussed for >16 minutes on 05/13/24 Plan discussed with patient Plan discussed with Dr. Suarez Plan discussed with: Patient, Other (RN) Dietary Evaluation Review Comments: Follow CCHO-60 Renal standard 2g Na 3K Low Phos diet Expected Outcomes/Goals: controlled DM, controlled Renal disease with diet and dialysis Date of Service: May 16, 2024 Billing Provider: DOMINICK SUAREZ MD Common Visit Codes: [id number] INP/OBS CARE(HIGH) SHELBI GUEVARA RESIDENT May 16, 2024 20:02 DOMINICK SUAREZ MD May 20, 2024 19:47
[2024-05-16] MEDS: EPOETIN ALFA-EPBX 10,000 UNIT/1ML VIAL SC SCH (21:22)
[2024-05-17] VITALS (9 sets, daily range): BP systolic 118–160; BP diastolic 47–70; PULSE 71–92; RESP 15–20; TEMP 97.3–98.3; O2SAT 94–99
[2024-05-17 05:52] LABS: Basophils # (auto) 0 10 ^3/uL (0-0.2); Basophils % (auto) 0.6 % (0.0-2.0); Eosinophils # (auto) 0.2 10 ^3/uL (0-0.8); Eosinophils % (auto) 4.3 % (0.0-7.0); Hematocrit 30.6 % (36.0-46.0); Hemoglobin 9.6 g/dL (12.2-16.2); Lymphocytes # (auto) 0.8 10 ^3/uL (0.4-5.4); Lymphocytes % (auto) 14.7 % (10.0-50.0); Mean Corpuscular Hemoglobin 27.3 pg (28.0-32.0); Mean Corpuscular Hgb Conc. 31.5 g/dL (32.0-36.0); Mean Corpuscular Volume 86.6 fL (80.0-100.0); Monocytes # (auto) 0.4 10 ^3/uL (0-1.3); Neutrophils # (auto) 3.8 10 ^3/uL (1.6-8.6); Neutrophils % (auto) 72.4 % (37.0-80.0); Nucleated Red Blood Cells % 0.8 %; Platelet Count (auto) 151 10^3/uL (140-450); Red Blood Cells 3.53 10^6/uL (4.0-5.20); Red Cell Distribution Width 17.4 % (11.8-14.3); White Blood Cell 5.2 10^3/uL (4.4-10.8)
[2024-05-17 06:09] LABS: Calcium 9.1 mg/dL (8.7-10.4); Chloride 103 mmol/L (98-107); Sodium 140 mmol/L (136-145)
[2024-05-17 06:10] LABS: Anion Gap 12 (5-15); Carbon Dioxide 25 mmol/L (20-31)
[2024-05-17 06:15] LABS: BUN/Creatinine Ratio 18.9 (10.0-20.0); Glucose 95 mg/dL (74-106)
[2024-05-17 06:18] LABS: Blood Urea Nitrogen 66 mg/dL (9-23); Potassium 3.5 mmol/L (3.5-5.1)
[2024-05-17] MEDS ORDERED: SODIUM CHL 0.9% 1000 ML BAG XX ONE (07:00)
--- NOTE | 2024-05-17 09:09 | DVHINCON2 ---
Date Seen: May 17, 2024 Reason for Consultation Bilateral lower extremity swelling History of Present Illness This is a 89-year-old female past medical history of hypertension, diabetes jorge itus, hyperlipidemia, CKD, anemia and dementia presented to the ED via EMS with the chief complaint of fatigue, weakness and bilateral leg swelling for 1 week prior to this admission. According to the family the patient revoked hospice 2 weeks ago and was complaining of bilateral leg swelling and generalized weakness. 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 On admission patient was desaturating at 72% and was placed on oxygen 1st 15 L and titrated down to 3 L with oxygen saturation 97%. The patient denies chest pain, dizziness, diaphoresis, abdominal pain, nausea, vomiting or any change in bowel and bladder movement. Past Medical History See H&P Past Surgical History See H&P Family History: Cardiovascular disease G8 MOTHER Diabetes mellitus G8 MOTHER G8 FATHER Allergies: Coded Allergies: Aspirin (Unverified Allergy, Unknown, 08/23/20) Celecoxib (Verified Adverse Reaction, Severe, WEAKNESS, 04/05/11) Home Meds Reported Medications Metformin Hydrochloride (Metformin Hcl) 500 Mg Tab, 1 TAB PO DAILY for 90 Days, #90 05/13/24 Mupirocin (Pseudomonas Fluores (Mupirocin) 2 % Oin, 2 % EX UD for 30 Days, #22 05/13/24 Amlodipine Besylate (Amlodipine Besylate) 10 Mg Tab, 1 TAB PO DAILY for 90 Days, #90 05/13/24 Ferrous Sulfate (Ferosul) 325 Mg Tab, 1 TAB PO BID for 30 Days, #60 03/19/24 Glipizide (Glipizide) 5 Mg Tab, 5 MG PO BIDAC for 30 Days, MG 03/19/24 Atorvastatin Calcium (Lipitor) 20 Mg Tab, 1 TAB PO DAILY for 90 Days, #90 03/19/24 Furosemide (Furosemide) 40 Mg Tab, 1 TAB PO BID for 30 Days, #60 03/19/24 Allopurinol (Allopurinol) 100 Mg Tab, 100 MG PO TID for 30 Days, MG 03/19/24 Losartan Potassium (Losartan Potassium) 50 Mg Tab, 1 TAB PO DAILY for 90 Days, #90 03/19/24 Linagliptin Base (TRADJENTA) 5 Mg Tab, 1 TAB PO DAILY for 90 Days, #90 10/06/20 Current Medications Current Medications Medications (Trade) Dose Ordered Sig/Francoise Route PRN Reason Start Time Stop Time Status Last Admin Epoetin Des-epbx (Retacrit) 6,000 unit [facility] 05/16/24 21:00 05/16/24 21:22 Vital Signs Vital Signs Date Time Temp Pulse Resp B/P (MAP) Pulse Ox O2 Delivery O2 Flow Rate FiO2 05/17/24 08:56 98.0 81 20 156/60 (92) 94 98.0 05/16/24 20:00 Nasal Cannula* 2 28 Physical Exam DERMATOLOGIC EXAM: - Skin is dry and cool to the touch dry bilaterally. - Nails 1-5 of the bilateral foot are thickened, discolored, dystrophic, and tender to palpate with subungual debris - Hair loss noted to bilateral feet - Bilateral lower extremity swelling VASCULAR EXAM: - DP and PT pulses are palpable bilaterally. - CO OP is brisk to all digits. - Feet are cool to touch compared to lower legs bilaterally. NEUROLOGIC EXAM: - Normal light touch sensation to the superficial peroneal, deep peroneal, sural, saphenous, and tibial nerve branches. - Protective sensation is diminished as tested with a 5.07 10g [place] bilaterally. MUSCULOSKELETAL EXAM: - No gross deformities - Muscle strength is 5/5 and active motion is pain-free and symmetrical bilaterally - No pain or crepitation with passive range of motion bilaterally to all major pedal joints Labs/Diagnostic Data Labs Test 05/17/24 04:55 05/16/24 10:45 05/16/24 05:10 05/14/24 16:00 Range/Units White Blood Count 5.2 4.4-10.8 10^3/uL Red Blood Count 3.53 L 4.0-5.20 10^6/uL Hemoglobin 9.6 L 12.2-16.2 g/dL Hematocrit 30.6 L 36.0-46.0 % Mean Corpuscular Volume 86.6 80.0-100.0 fL Mean Corpuscular Hemoglobin 27.3 L 28.0-32.0 pg Mean Corpuscular Hemoglobin Concent 31.5 L 32.0-36.0 g/dL Red Cell Distribution Width 17.4 H 11.8-14.3 % Platelet Count 151 140-450 10^3/uL Mean Platelet Volume 8.0 6.9-10.8 fL Neutrophils (%) (Auto) 72.4 37.0-80.0 % Lymphocytes (%) (Auto) 14.7 10.0-50.0 % Monocytes (%) (Auto) 8.0 0.0-12.0 % Eosinophils (%) (Auto) 4.3 0.0-7.0 % Basophils (%) (Auto) 0.6 0.0-2.0 % Neutrophils # (Auto) 3.8 1.6-8.6 10 ^3/uL Lymphocytes # (Auto) 0.8 0.4-5.4 10 ^3/uL Monocytes # (Auto) 0.4 0-1.3 10 ^3/uL Eosinophils # (Auto) 0.2 0-0.8 10 ^3/uL Basophils # (Auto) 0 0-0.2 10 ^3/uL Nucleated Red Blood Cells 0.8 % Sodium Level 140 136-145 mmol/L Potassium Level 3.5 3.5-5.1 mmol/L Chloride Level 103 98-107 mmol/L Carbon Dioxide Level 25 20-31 mmol/L Anion Gap 12 5-15 Blood Urea Nitrogen 66 H 9-23 mg/dL Creatinine 3.49 H 0.550-1.02 mg/dL Glomerular Filtration Rate Calc 12 >90 mL/min BUN/Creatinine Ratio 18.9 10.0-20.0 Serum Glucose 95 74-106 mg/dL Calcium Level 9.1 8.7-10.4 mg/dL POC Glucose 126 H 70-106 mg/dl Parathyroid Hormone (Intact) 191.1 H 18.4-80.1 pg/mL Urine Color Light-orange Yellow Urine Clarity Ex.turbid Clear Urine pH 5.5 5.0-9.0 Urine Specific [place] 1.012 1.001-1.035 Urine Protein 2+ H Negative Urine Ketones Negative Negative Urine Blood 3+ H Negative /uL Urine Nitrite Negative Negative Urine Bilirubin Negative Negative Urine Urobilinogen Normal Negative mg/dL Urine Leukocyte Esterase 3+ Negative /uL Urine RBC 910 0 - 4 /hpf Urine WBC 127 0 - 5 /hpf Urine WBC Clumps Present None Seen /hpf Urine Squamous Epithelial Cells Few <5 /hpf Urine Bacteria Few H None Seen /hpf Urine Hyaline Casts Many 0 - 2 /lpf Urine Mucus Few None Seen Urine Creatinine 105.72 30.0-125.0 mg/dL Urine Protein/Creatinine Ratio 1.58 Urine Sodium 12 L 40-220 mmol/L Urine Glucose Normal Normal mg/dL Urine Total Protein 167.3 H 1-14 mg/dL Test 05/14/24 06:59 05/13/24 10:05 05/13/24 02:41 05/13/24 01:46 Range/Units Hepatitis A IgM Antibody Negative Hepatitis B Surface Antigen Negative Negative Hepatitis B Core IgM Antibody Negative Negative Hepatitis C Antibody Negative Negative Hemoglobin A1c 7.1 H <5.7 % A1C B-Type Natriuretic Peptide 1443.71 0-100 pg/mL Prothrombin Time 12.5 H 9.3-11.8 sec Prothrombin Time INR 1.19 H 0.9-1.15 Activated Partial Thromboplast Time 27.5 24.5-34.5 SEC Iron Level 18 L 50-170 ug/dL Total Iron Binding Capacity 313 250-425 ug/dL Percent Iron Saturation 5.8 L 15-50 % Vitamin D 25-Hydroxy 28.8 L 30.0-100 ng/mL Phosphorus Level 6.7 H 2.4-5.1 mg/dL Magnesium Level 2.7 H 1.6-2.6 mg/dL Test 05/13/24 01:41 05/12/24 21:08 05/12/24 16:12 Range/Units Ferritin 31.4 10-291 ng/mL Troponin I High Sensitivity 25 </=34 ng/L Lactic Acid Level 1.2 0.4-2.0 mmol/L Total Bilirubin 0.3 0.2-1.0 mg/dL Aspartate Amino Transferase (AST) 26 13-40 U/L Alanine Aminotransferase (ALT) 16 7-40 U/L Alkaline Phosphatase 98 46-116 U/L Total Protein 6.7 5.7-8.2 g/dL Albumin 3.9 3.2-4.8 g/dL Microbiology Date/Time Source Procedure Growth Status 05/14/24 16:00 Voided Urine Urine Culture - Preliminary Resulted Problems(with codes): (1) Sepsis (2) Abdominal pain (3) Uncontrolled diabetes mellitus (4) Abscess of right thigh (5) Severe anemia (6) Dizziness (7) UTI (urinary tract infection) (8) Urinary tract infection (9) Nephrotic syndrome (10) Edema (11) History of fall (12) Laceration of right lower leg (13) Hyperglycemia (14) Hypercalcemia (15) Acute renal failure (16) Generalized weakness Plan/Recommendation ASSESSMENT: Patient is a 89 year old female seen on the floor for b/l lower extremity swelling PLAN: - The patients chart was reviewed, clinical findings were discussed with the patient, the etiologies of the conditions were discussed in detail, and a treatment plan was agreed to at this time, with both oral and written in structions provided. - Discussed with patient that she will need either compression wrapping or compression socks in the future - Discussed that the legs seem to improve with diuresis - Discussed concerns for the swelling to come back once shes discharged - Recommend f/u with me as an outpatient - No surgical intervention needed at this point All questions were answered and concerns addressed to the patient's satisfaction. The patient was given the phone number to the clinic and was told how to make contact with the clinic should any concerns or questions arise. Patient understands that if any questions or concerns arise prior to the next appointment, we should be contacted immediately. FOLLOW-UP: Patient will follow up with me in 1 week after discharge Plan discussed with: Patient Date of Service: May 16, 2024 Billing Provider: SHAHNAZ SUH DPM Common Visit Codes: [id number] INP/OBS CARE (HIGH) SHAHNAZ SUH DPM May 17, 2024 09:09
--- NOTE | 2024-05-17 12:29 | DVHPN2 ---
Progress Note Date Seen: May 17, 2024 Medical Necessity Reason Pt with a Central, PICC or Fol: Yes The following are medically ne: Sainz Catheter Subjective Patient reports: Other Review of Systems: RESPIRATORY:Normal Objective vital signs Vital Sign Date Time Temp Pulse Resp B/P (MAP) Pulse Ox O2 Delivery O2 Flow Rate FiO2 05/17/24 12:10 99 Nasal Cannula* 2 28 05/17/24 08:56 98.0 81 20 156/60 (92) 98.0 Total Intake and Output 05/16/24 05/16/24 05/17/24 15:00 23:00 07:00 Intake Total 160 ml 400 ml Output Total 400 ml 500 ml Balance 160 ml 0 ml -500 ml medications Current Medications Medications Dose Ordered Sig/Francoise Route Start Time Stop Time Status Last Admin Dose Admin Insulin Glargine 15 units QAM SC 05/14/24 07:00 Hold Diagnostic Test (Pha) 1 strip ACHS 05/13/24 11:30 05/17/24 11:57 1 STRIP Insulin Human Regular HS SC 05/13/24 22:00 05/16/24 22:02 3 UNITS Insulin Human Regular AC SC 05/13/24 11:30 05/15/24 11:30 3 UNITS Dextrose 50 ml UD PRN IV 05/13/24 11:00 05/14/24 06:02 50 ML Famotidine 20 mg DAILY PO 05/14/24 10:00 05/17/24 11:55 20 MG Heparin Sodium (Porcine) 5,000 units Q12HR SC 05/13/24 22:00 05/17/24 12:11 5,000 UNITS Clindamycin Phosphate 50 ml @ 50 mls/hr Q8HR IV 05/13/24 14:00 05/17/24 06:18 50 MLS/HR Ceftriaxone Sodium 50 ml @ 100 mls/hr DAILY@09 IV 05/14/24 09:00 05/17/24 11:56 100 MLS/HR Furosemide 80 mg BIDD IV 05/13/24 18:00 05/17/24 06:17 80 MG Albuterol 2.5 mg Q6HPRN PRN NEB 05/13/24 15:00 05/15/24 07:01 2.5 MG Ipratropium [place] 0.5 mg Q6HPRN PRN NEB 05/13/24 15:00 05/15/24 07:01 0.5 MG Ergocalciferol 50,000 unit Q7D PO 05/14/24 16:00 05/14/24 16:20 50,000 UNIT Iron Sucrose 110 ml @ 110 mls/hr DAILY@1200 IV 05/15/24 12:00 05/19/24 12:59 05/16/24 12:30 110 MLS/HR Epoetin Des-epbx 6,000 unit TUTHSA SC 05/16/24 21:00 05/16/24 21:22 6,000 UNIT Sevelamer HCl 1,600 mg TIDWM PO 05/15/24 12:00 05/17/24 09:18 1,600 MG Examination: GENERAL:Normal, NECK:Normal, CVS:Normal, SKIN:Abnormal laboratory and microbiology Laboratory Tests 05/17/24 04:55 Test 05/17/24 04:55 Range/Units Serum Glucose 95 74-106 mg/dL Microbiology Date/Time Source Procedure Growth Status 05/14/24 16:00 Voided Urine Urine Culture - Final Complete Problem List/Assessment/Plan Problem List/Assessment/Plan new ESRD Chronic diastolic heart failure Diabetes mellitus type 2 Hypertension Anemia of chronic kidney disease Hyperphosphatemia Status post tunneled hemodialysis catheter 05/14 Hemodialysis today Epogen 6000 units 3x a week SubQ, Loading IV iron due to iron deficiency daily po diuretics and fluid restriction 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 Renal diet phos binder with each meal [facility] to start dialysis on Monday discharge at primary team discretion Plan discussed with: Patient My Orders My Orders Orders - LADONNA NICHOLS MD Procedure Category Date Status Time Hemodialysis Orders ORDERS 05/17/24 Transmitted 07:00 Dialysis Nursing GRACE 05/17/24 In Process Message 07:00 Document Fluid Input GRACE 05/17/24 In Process And Outpu 07:00 Dietary Evaluation Review Comments: Follow CCHO-60 Renal standard 2g Na 3K Low Phos diet Expected Outcomes/Goals: controlled DM, controlled Renal disease with diet and dialysis LADONNA NICHOLS MD May 17, 2024 12:29
[2024-05-17] MEDS: POLYETHYLENE GLYCOL 17 GM PWDR PO ONE (14:29)
[2024-05-17 15:08] LABS: Base Excess 2.6 mmol/L (-2.0-3.0)
--- NOTE | 2024-05-17 15:30 | DVH ---
EXAM: CT HEAD WITHOUT CONTRAST INDICATION: L sided weakness TECHNIQUE: CT of the head without intravenous contrast. Radiation Dose Information: CT Dose: CTDI volume is 55.27 mGy. Dose-length product is 775.47 mGy*cm The dose indicators for CT are the volume Computed Tomography (CT) Dose Index (CTDIvol) and the Dose Length Product (DLP), and are measured in units of mGy and mGy-cm, respectively. These indicators are not patient dose, but values generated from the CT scanner acquisition factors. The report includes radiation exposure data for exposures received during this examination. COMPARISON: CT HEAD WITHOUT CONTRAST on DOS: 05/15/24, CT HEAD WITHOUT CONTRAST on DOS: 03/18/24 FINDINGS: There is no evidence of acute intracranial hemorrhage, extra-axial collection, mass effect, midline s hift, herniation or hydrocephalus. The ventricles, sulci and cisterns are age appropriate. The dobbs-white differentiation is intact. Patchy periventricular and subcortical white matter hypoattenuation is nonspecific but may be related to small vessel ischemic disease. The visualized paranasal sinuses and mastoid air cells are clear. The surrounding soft tissues and osseous structures are unremarkable. IMPRESSION: 1. No CT evidence of acute intracranial abnormality. If there is clinical concern for acute ischemia, MRI is recommended for further evaluation. HS:Y
--- NOTE | 2024-05-17 16:40 | DVHPNRES ---
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 According to the patient, she was brought in by her daughter after she experienced an episode of feeling dizzy, patient notes she was lying down when all of a sudden she started feeling dizziness which lasted for 30 minutes. Patient reports that she often feels dizzy, usually when she sitting the dizziness will come all of a sudden. Patient also notes that she has loss of appetite, has not had a meal for the last 2 days. Denies any dysphagia or odynophagia, just states lack of appetite as the reason for not eating. Past surgical history: Splenectomy Home medications: Allopurinol, atorvastatin, furosemide, glipizide, linagliptin, losartan Past Hospitalization: March 2024 for sepsis due to UTI Social & Personal history: Patient lives with her daughter. Denies using tobacco, alcohol, drugs. Allergies: Denies Patient seen and examined at bedside. Patient is alert and oriented to place person but not to time, responding to most questions. Objective vital signs Vital Sign Date Time Temp Pulse Resp B/P (MAP) Pulse Ox O2 Delivery O2 Flow Rate FiO2 05/17/24 13:00 97.5 92 16 118/70 (86) 96 97.5 05/17/24 12:10 Nasal Cannula* 2 28 Total Intake and Output 05/16/24 05/16/24 05/17/24 15:00 23:00 07:00 Intake Total 160 ml 400 ml Output Total 400 ml 500 ml Balance 160 ml 0 ml -500 ml medications Current Medications Medications Dose Ordered Sig/Francoise Route Start Time Stop Time Status Last Admin Dose Admin Insulin Glargine 15 units QAM SC 05/14/24 07:00 Hold Diagnostic Test (Pha) 1 strip ACHS 05/13/24 11:30 05/17/24 11:57 1 STRIP Insulin Human Regular HS SC 05/13/24 22:00 05/16/24 22:02 3 UNITS Insulin Human Regular AC SC 05/13/24 11:30 05/15/24 11:30 3 UNITS Dextrose 50 ml UD PRN IV 05/13/24 11:00 05/14/24 06:02 50 ML Famotidine 20 mg DAILY PO 05/14/24 10:00 05/17/24 11:55 20 MG Heparin Sodium (Porcine) 5,000 units Q12HR SC 05/13/24 22:00 05/17/24 12:11 5,000 UNITS Clindamycin Phosphate 50 ml @ 50 mls/hr Q8HR IV 05/13/24 14:00 05/17/24 14:47 50 MLS/HR Ceftriaxone Sodium 50 ml @ 100 mls/hr DAILY@09 IV 05/14/24 09:00 05/17/24 11:56 100 MLS/HR Furosemide 80 mg BIDD IV 05/13/24 18:00 05/17/24 06:17 80 MG Ergocalciferol 50,000 unit Q7D PO 05/14/24 16:00 05/14/24 16:20 50,000 UNIT Iron Sucrose 110 ml @ 110 mls/hr DAILY@1200 IV 05/15/24 12:00 05/19/24 12:59 05/17/24 12:58 110 MLS/HR Epoetin Des-epbx 6,000 unit TUTHSA SC 05/16/24 21:00 05/16/24 21:22 6,000 UNIT Sevelamer HCl 1,600 mg TIDWM PO 05/15/24 12:00 05/17/24 12:58 1,600 MG Examination General Appearance: Cooperative. Well developed. Well nourished. NAD Head Exam: Normal inspection Neck Exam: Normal inspection. Non-tender. Normal alignment Pulmonary/Respiratory: Chest non-tender. Clear bilateral breath sounds, no crackles, wheezing. Cardiovascular/Chest: Regular rate and rhythm. Systolic murmur heard. No JVD. Peripheral Pulses: 2+ Radial (R). 2+ Radial (L). 2+ Pedal (R). 2+ Pedal (L) Abdominal Exam: Normal bowel sounds. Soft. normal abdomen, no visible veins, Nontender. No hepatospenomegaly. No masses Ankle Exam: Negative ankle edema Lower extremities: 1+ lower extremity edema. Bilateral lower extremity erythema. Scabbing ulceration noted on the right lower extremity anterior aspect. Upper extremities: Bilateral upper extremity erythema, mild tenderness to palpation. Erythema well demarcated in the right upper extremity, poorly demarcated in the left upper extremity, improving Neuro/Mental Status: A&O x2. Coherent. Skin Exam: Normal inspection. Normal color. Warm. Dry Neurologic: Right arm resting tremor laboratory and microbiology Laboratory Tests 05/17/24 04:55 Test 05/17/24 04:55 Range/Units Serum Glucose 95 74-106 mg/dL Microbiology Date/Time Source Procedure Growth Status 05/14/24 16:00 Voided Urine Urine Culture - Final Complete Labs and/or images reviewed: Labs reviewed by me, Image(s) reviewed by me Problem List/Assessment/Plan Problem List/Assessment/Plan Uremic encephalopathy Generalized weakness - ordered head CT: No acute intracranial hemorrhage. No CT findings of territorial ischemia. - completed dialysis on 05/15/2024 - 2nd session of dialysis today on 05/17/2024. - repeat head CT done on 05/17/2024: No CT evidence of acute intracranial abnormality. Acute on chronic diastolic CHF, EF 55% Acute hypoxic respiratory failure due to above, on 2 L O2 via [place] Cardiorenal syndrome - CXR: Findings most likely represent development of congestive failure when compared to 03/21/2024 - IV Lasix 80 mg b.i.d. - ABG: PO2 43.3 - consulted social services for home oxygen arrangement Possible pneumonia, Gram-positive versus Gram-negative can not be ruled out Lower extremity cellulitis/osteomyelitis can not be ruled out at present - extremity venous study: No sonographic evidence for deep vein thrombosis in bilateral lower extremity veins - evaluated by Podiatry - IV ceftriaxone - IV clindamycin 600 mg Q 8 hours - ipratropium, albuterol med nebs FARNAZ likely hemodynamically mediated/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 t.i.d. - nephrology on board; scheduled for dialysis today on 05/14/2024 - Epogen 61447 IV post dialysis Type 2 diabetes, Hb A1c 7.1 Hypertension, BP currently running on the softer side - insulin Lantus 15 units q.a.m. - holding home medication amlodipine 10 mg due to bilateral lower extremity swelling PUD prophylaxis: Pepcid 20 mg DVT prophylaxis: Heparin 5000 units b.i.d. Goals of care: Full code, discussed for 20 minutes Plan discussed with patient and her daughter; staff helped with translation Plan discussed with Dr. Rodriguez; consulted Grading Machine Operator for discharge planning and place menstrual losses Plan discussed with: Patient, Daughter, Other (RN) My Orders My Orders Orders - SHELBI GUEVARA RESIDENT Procedure Category Date Status Time *Podiatry Consult CONS 05/17/24 Transmitted [facility]) 06:[address] 05/17/24 Resulted 14:22 Abg W/ Co-Ox RT 05/17/24 Logged 14:27 * Grading Machine Operator CONS 05/17/24 Transmitted Consult Dietary Evaluation Review Comments: Follow CCHO-60 Renal standard 2g Na 3K Low Phos diet Expected Outcomes/Goals: controlled DM, controlled Renal disease with diet and dialysis Addendum Addendum Addendum I was physically present for the [place] portions of the service provided to patient by THE RESIDENT. I have reviewed the documentation, discussed the case with resident and agree with the resident's documentation except as noted. Also the patient's clinical case was discussed with the patient's nurse. This medical document was created using an electronic medical record system with computerized dictation system. Although this document has been carefully reviewed, there might still be some phonetic and typographical errors. These areas are purely typographical due to imperfections of the software programs, and do not reflect any compromise in the patient's medical care. Late signature. Date of Service: May 17, 2024 Billing Provider: SCOOBY RODRIGUEZ MD Common Visit Codes: [id number] INP/OBS CARE(HIGH) Secondary Visit Codes: [id number] CARE PLAN 30 MINUTES (20 minutes) SHELBI GUEVARA RESIDENT May 17, 2024 16:40 SCOOBY RODRIGUEZ MD May 18, 2024 07:43
[2024-05-18] VITALS (8 sets, daily range): BP systolic 146–157; BP diastolic 50–58; PULSE 69–81; RESP 17–20; TEMP 97–99.7; O2SAT 94–99
[2024-05-18 06:51] LABS: Chloride 102 mmol/L (98-107); Sodium 140 mmol/L (136-145)
[2024-05-18 06:52] LABS: Anion Gap 8 (5-15); Carbon Dioxide 30 mmol/L (20-31)
[2024-05-18 06:53] LABS: Calcium 8.8 mg/dL (8.7-10.4)
[2024-05-18 06:57] LABS: BUN/Creatinine Ratio 14.1 (10.0-20.0); Glucose 89 mg/dL (74-106)
[2024-05-18 06:59] LABS: Blood Urea Nitrogen 36 mg/dL (9-23)
[2024-05-18] MEDS: POTASSIUM EFFERVESENT TAB 25 MEQ PO ONE ×2 (12:47→23:23)
[2024-05-18 16:34] LABS: Hematocrit 31.1 % (36.0-46.0); Hemoglobin 9.8 g/dL (12.2-16.2)
--- NOTE | 2024-05-18 17:06 | DVH ---
EXAM: MRI MRI R TIB FIB WO CONTRAST R CLINICAL INDICATION: 89 years old, Female; Lower extremity erythema, scabbing ulcers. COMPARISON: None TECHNIQUE: Multiplanar, multisequence MRI of the right tibia-fibula (lower leg) was performed without intravenous contrast. Contrast: None INTERPRETATION: Bones: There is no fracture or bone marrow edema. There is no marrow replacing lesion. Visualized senthil int spaces are maintained. Soft tissues: There is diffuse circumferential subcutaneous edema in the entire visualized lower extr emity from above the knee down to the hindfoot. There is no obvious fluid collection. There is a curv ilinear T2 hyperintense structure in the heel which may reflect a dressing. There is no mass. No hig h-grade tendon or ligament injury. Mild decreased muscle bulk throughout the calf. Diffuse intramuscu lar edema in all muscle compartments. IMPRESSION: 1. Circumferential subcutaneous edema involving the entire right lower extremity which may reflect ce llulitis. 2. Diffuse intramuscular edema which may reflect myositis of infectious or inflammatory etiology. Ple ase note that compartment syndrome is a clinical diagnosis and correlation with physical symptoms is recommended. Overall decrease in muscle bulk to be correlated for disuse given the diffuse distributi on. 3. No MR evidence of osteomyelitis.
--- NOTE | 2024-05-18 17:11 | DVH ---
EXAM: MRI MRI L TIB FIB WO CONTRAST L CLINICAL INDICATION: 89 years old, Female; Lower extremity erythema, scabbing ulcers. COMPARISON: None TECHNIQUE: Multiplanar, multisequence MRI of the left tibia-fibula (lower leg) was performed without intravenous contrast. Contrast: None INTERPRETATION: Motion limits evaluation but the images are still of diagnostic value. Bones: Focus of ill-defined T2 hyperintensity in the medial femoral condyle with patchy T1 hypointens ity. Bone marrow signal is otherwise unremarkable. There is no fracture. Visualized joint spaces are maintained. Soft tissues: There is diffuse circumferential subcutaneous edema in the entire visualized lower extr emity from above the knee down to the hindfoot. There is no obvious fluid collection. There is no ma ss. No high-grade tendon or ligament injury. Mild decreased muscle bulk throughout the calf. Diffuse intramuscular edema in all muscle compartments. There is a knee joint effusion. IMPRESSION: 1. Circumferential subcutaneous edema involving the entire left lower extremity which may reflect adrian lulitis. 2. Diffuse intramuscular edema which may reflect myositis of infectious or inflammatory etiology. Ple ase note that compartment syndrome is a clinical diagnosis and correlation with physical symptoms is recommended. Overall decrease in muscle bulk to be correlated for disuse given the diffuse distributi on. 3. Patchy marrow edema in the medial femoral condyle possibly representing contusion. Osteomyelitis considered less likely as there is no consult replacement of the marrow. 4. Small knee joint effusion.
--- NOTE | 2024-05-18 17:36 | DVHPN2 ---
Progress Note Date Seen: May 18, 2024 Medical Necessity Reason Pt with a Central, PICC or Fol: Yes The following are medically ne: Sainz Catheter Subjective Patient reports: Feels better Objective vital signs Vital Sign Date Time Temp Pulse Resp B/P (MAP) Pulse Ox O2 Delivery O2 Flow Rate FiO2 05/18/24 13:00 97.8 72 20 146/50 (82) 96 97.8 05/18/24 08:00 Nasal Cannula* 2 28 Total Intake and Output 05/17/24 05/17/24 05/18/24 15:00 23:00 07:00 Intake Total 100 ml 0 ml 400 ml Output Total 240 ml 400 ml Balance 100 ml -240 ml 0 ml medications Current Medications Medications Dose Ordered Sig/Francoise Route Start Time Stop Time Status Last Admin Dose Admin Insulin Glargine 15 units QAM SC 05/14/24 07:00 Hold Diagnostic Test (Pha) 1 strip ACHS 05/13/24 11:30 05/18/24 11:00 1 STRIP Insulin Human Regular HS SC 05/13/24 22:00 05/16/24 22:02 3 UNITS Insulin Human Regular AC SC 05/13/24 11:30 05/15/24 11:30 3 UNITS Dextrose 50 ml UD PRN IV 05/13/24 11:00 05/14/24 06:02 50 ML Famotidine 20 mg DAILY PO 05/14/24 10:00 05/18/24 09:04 20 MG Heparin Sodium (Porcine) 5,000 units Q12HR SC 05/13/24 22:00 05/18/24 09:07 5,000 UNITS Clindamycin Phosphate 50 ml @ 50 mls/hr Q8HR IV 05/13/24 14:00 05/18/24 14:14 50 MLS/HR Ceftriaxone Sodium 50 ml @ 100 mls/hr DAILY@09 IV 05/14/24 09:00 05/18/24 09:05 100 MLS/HR Furosemide 80 mg BIDD IV 05/13/24 18:00 05/18/24 05:10 80 MG Ergocalciferol 50,000 unit Q7D PO 05/14/24 16:00 05/14/24 16:20 50,000 UNIT Iron Sucrose 110 ml @ 110 mls/hr DAILY@1200 IV 05/15/24 12:00 05/19/24 12:59 05/18/24 12:38 110 MLS/HR Epoetin Des-epbx 6,000 unit TUTHSA SC 05/16/24 21:00 05/16/24 21:22 6,000 UNIT Sevelamer HCl 1,600 mg TIDWM PO 05/15/24 12:00 05/18/24 12:38 1,600 MG Examination: GENERAL:Normal, CVS:Normal, ABDOMEN:Normal laboratory and microbiology Laboratory Tests 05/18/24 05:55 05/17/24 04:55 Test 05/18/24 05:55 Range/Units Serum Glucose 89 74-106 mg/dL Microbiology Date/Time Source Procedure Growth Status 05/14/24 16:00 Voided Urine Urine Culture - Final Complete Problem List/Assessment/Plan Problem List/Assessment/Plan new ESRD Chronic diastolic heart failure Diabetes mellitus type 2 Hypertension Anemia of chronic kidney disease Hyperphosphatemia Status post tunneled hemodialysis catheter 05/14 Hemodialysis monday Epogen 6000 units 3x a week SubQ, Loading IV iron due to iron deficiency daily po diuretics and fluid restriction 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
--- NOTE | 2024-05-18 20:39 | DVHPNRES ---
Progress Note Date Seen: May 18, 2024 Resident Creating Document: KIM ARIAS RESIDENT Medical Necessity Reason Pt with a Central, PICC or Fol: Yes The following are medically ne: Sainz Catheter Subjective Review of Systems pt seen and examined at bedside. pt is currently confused family at bedside updated about the patient condition Objective vital signs Vital Sign Date Time Temp Pulse Resp B/P (MAP) Pulse Ox O2 Delivery O2 Flow Rate FiO2 05/18/24 20:00 Nasal Cannula* 2 28 05/18/24 18:32 76 154/58 (90) 05/18/24 13:00 97.8 20 96 97.8 Total Intake and Output 05/17/24 05/17/24 05/18/24 15:00 23:00 07:00 Intake Total 100 ml 0 ml 400 ml Output Total 240 ml 400 ml Balance 100 ml -240 ml 0 ml medications Current Medications Medications Dose Ordered Sig/Francoise Route Start Time Stop Time Status Last Admin Dose Admin Insulin Glargine 15 units QAM SC 05/14/24 07:00 Hold Diagnostic Test (Pha) 1 strip ACHS 05/13/24 11:30 05/18/24 17:47 1 STRIP Insulin Human Regular HS SC 05/13/24 22:00 05/16/24 22:02 3 UNITS Insulin Human Regular AC SC 05/13/24 11:30 05/15/24 11:30 3 UNITS Dextrose 50 ml UD PRN IV 05/13/24 11:00 05/14/24 06:02 50 ML Famotidine 20 mg DAILY PO 05/14/24 10:00 05/18/24 09:04 20 MG Heparin Sodium (Porcine) 5,000 units Q12HR SC 05/13/24 22:00 05/18/24 09:07 5,000 UNITS Clindamycin Phosphate 50 ml @ 50 mls/hr Q8HR IV 05/13/24 14:00 05/18/24 14:14 50 MLS/HR Ceftriaxone Sodium 50 ml @ 100 mls/hr DAILY@09 IV 05/14/24 09:00 05/18/24 09:05 100 MLS/HR Furosemide 80 mg BIDD IV 05/13/24 18:00 05/18/24 17:47 80 MG Ergocalciferol 50,000 unit Q7D PO 05/14/24 16:00 05/14/24 16:20 50,000 UNIT Iron Sucrose 110 ml @ 110 mls/hr DAILY@1200 IV 05/15/24 12:00 05/19/24 12:59 05/18/24 12:38 110 MLS/HR Epoetin Des-epbx 6,000 unit TUTHSA SC 05/16/24 21:00 05/16/24 21:22 6,000 UNIT Sevelamer HCl 1,600 mg TIDWM PO 05/15/24 12:00 05/18/24 17:47 1,600 MG Examination General Appearance: confused on 2l 02 Head Exam: Normal inspection Neck Exam: Normal inspection. Non-tender. Normal alignment Pulmonary/Respiratory: Chest non-tender. Clear bilateral breath sounds, no crackles, wheezing. Cardiovascular/Chest: Regular rate and rhythm. Systolic murmur heard. No JVD. Peripheral Pulses: 2+ Radial (R). 2+ Radial (L). 2+ Pedal (R). 2+ Pedal (L) Abdominal Exam: Normal bowel sounds. Soft. normal abdomen, no visible veins, Nontender. No hepatospenomegaly. No masses Ankle Exam: Negative ankle edema Lower extremities: 1+ lower extremity edema. Bilateral lower extremity erythema. Scabbing ulceration noted on the right lower extremity anterior aspect, right heel wound noted Upper extremities: Bilateral upper extremity erythema, mild tenderness to palpation. Erythema well demarcated in the right upper extremity, poorly demarcated in the left upper extremity, improving, new skin break in left forearm, currently dressing present over the wound Neuro/Mental Status: A&O x2. confused Skin Exam: Normal inspection. Normal color. Warm. Dry Neurologic: Right arm resting tremor laboratory and microbiology Laboratory Tests 05/18/24 05:55 05/17/24 04:55 Test 05/18/24 05:55 Range/Units Serum Glucose 89 74-106 mg/dL Microbiology Date/Time Source Procedure Growth Status 05/14/24 16:00 Voided Urine Urine Culture - Final Complete Labs and/or images reviewed: Labs reviewed by me, Image(s) reviewed by me Problem List/Assessment/Plan Problem List/Assessment/Plan Assessment/plan Uremic encephalopathy metabolic encephalopathy due to delirium due to cellulitis Generalized weakness - ordered head CT: No acute intracranial hemorrhage. No CT findings of territorial ischemia. - completed dialysis on 05/15/2024 - 2nd session of dialysis today on 05/17/2024. - repeat head CT done on 05/17/2024: No CT evidence of acute intracranial abnormality. Acute on chronic diastolic CHF, EF 55% Acute hypoxic respiratory failure due to above, on 2 L O2 via [place] Cardiorenal syndrome - CXR: Findings most likely represent development of congestive failure when compared to 03/21/2024 - IV Lasix 80 mg b.i.d. - ABG: PO2 43.3 - consulted psychiatric social worker for home oxygen arrangement Cellulitis bilateral legs and bilateral forearms -IV clindamycin plus IV ceftriaxone MRI bilateral lower legs wound care and wound consult Possible pneumonia, Gram-positive versus Gram-negative can not be ruled out Lower extremity cellulitis/osteomyelitis can not be ruled out at present - extremity venous study: No sonographic evidence for deep vein thrombosis in bilateral lower extremity veins - evaluated by Podiatry - IV ceftriaxone - IV clindamycin 600 mg Q 8 hours - ipratropium, albuterol med nebs FARNAZ likely hemodynamically mediated/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 t.i.d. - nephrology on board - Epogen 17547 IV post dialysis Type 2 diabetes, Hb A1c 7.1 Hypertension, BP currently running on the softer side - insulin Lantus 15 units q.a.m. - holding home medication amlodipine 10 mg due to bilateral lower extremity swelling PUD prophylaxis: Pepcid 20 mg DVT prophylaxis: Heparin 5000 units b.i.d. Plan discussed with patient and her daughter; staff helped with translation Plan discussed with Dr. Rodriguez; environmental services project manager consulted for home PT, home 02, wound care, outpatient dialysis chair time Plan discussed with: Patient, Other My Orders My Orders Orders - KIM ARIAS RESIDENT Procedure Category Date Status Time * Wound Consult CONS 05/18/24 Transmitted Wound Culture W/ Gs SHAYNA 05/18/24 In Process 14:58 Pt Request For Service PT 05/18/24 Logged 12:54 * Sat Tutor CONS 05/18/24 Transmitted Consult Dietary Evaluation Review Comments: Follow CCHO-60 Renal standard 2g Na 3K Low Phos diet Expected Outcomes/Goals: controlled DM, controlled Renal disease with diet and dialysis Addendum Addendum Addendum I was physically present for the [place] portions of the service provided to patient by THE RESIDENT. I have reviewed the documentation, discussed the case with resident and agree with the resident's documentation except as noted. Also the patient's clinical case was discussed with the patient's nurse. This medical document was created using an electronic medical record system with computerized dictation system. Although this document has been carefully reviewed, there might still be some phonetic and typographical errors. These areas are purely typographical due to imperfections of the software programs, and do not reflect any compromise in the patient's medical care. Late signature. Date of Service: May 18, 2024 Billing Provider: SCOOBY RODRIGUEZ MD Common Visit Codes: [id number] INP/OBS CARE(HIGH) KIM ARIAS RESIDENT May 18, 2024 20:39 SCOOBY RODRIGUEZ MD May 19, 2024 17:29
[2024-05-19] VITALS (8 sets, daily range): BP systolic 108–143; BP diastolic 44–64; PULSE 62–85; RESP 17–18; TEMP 96.9–97.9; O2SAT 92–97
[2024-05-19 06:13] LABS: Basophils # (auto) 0 10 ^3/uL (0-0.2); Eosinophils # (auto) 0.2 10 ^3/uL (0-0.8); Hemoglobin 8.3 g/dL (12.2-16.2); Monocytes # (auto) 0.4 10 ^3/uL (0-1.3); White Blood Cell 4.1 10^3/uL (4.4-10.8)
[2024-05-19 06:16] LABS: Basophils % (auto) 0.8 % (0.0-2.0); Eosinophils % (auto) 4.6 % (0.0-7.0); Hematocrit 25.8 % (36.0-46.0); Lymphocytes # (auto) 0.6 10 ^3/uL (0.4-5.4); Lymphocytes % (auto) 15.6 % (10.0-50.0); Mean Corpuscular Hemoglobin 27.6 pg (28.0-32.0); Mean Corpuscular Hgb Conc. 32.1 g/dL (32.0-36.0); Monocytes % (auto) 9.3 % (0.0-12.0); Neutrophils # (auto) 2.9 10 ^3/uL (1.6-8.6); Neutrophils % (auto) 69.7 % (37.0-80.0); Nucleated Red Blood Cells % 1.1 %; Platelet Count (auto) 123 10^3/uL (140-450); Red Cell Distribution Width 17.2 % (11.8-14.3)
[2024-05-19 06:20] LABS: Anion Gap 5 (5-15); Chloride 103 mmol/L (98-107); Potassium 4.2 mmol/L (3.5-5.1); Sodium 141 mmol/L (136-145)
[2024-05-19 06:26] LABS: BUN/Creatinine Ratio 13.9 (10.0-20.0); Glucose 88 mg/dL (74-106); Magnesium 2.1 mg/dL (1.6-2.6)
[2024-05-19 06:34] LABS: Blood Urea Nitrogen 41 mg/dL (9-23); Calcium 8.4 mg/dL (8.7-10.4); Carbon Dioxide 33 mmol/L (20-31)
--- NOTE | 2024-05-19 12:09 | DVHPN2 ---
Progress Note Date Seen: May 19, 2024 Medical Necessity Reason Pt with a Central, PICC or Fol: Yes The following are medically ne: Sainz Catheter Subjective Patient reports: No new complaints Objective vital signs Vital Sign Date Time Temp Pulse Resp B/P (MAP) Pulse Ox O2 Delivery O2 Flow Rate FiO2 05/19/24 09:00 97.3 64 17 132/64 (86) 94 97.3 05/19/24 08:00 Nasal Cannula* 2 28 Total Intake and Output 05/18/24 05/18/24 05/19/24 15:00 23:00 07:00 Intake Total 50 ml 450 ml 50 ml Output Total 200 ml 150 ml Balance 50 ml 250 ml -100 ml medications Current Medications Medications Dose Ordered Sig/Francoise Route Start Time Stop Time Status Last Admin Dose Admin Insulin Glargine 15 units QAM SC 05/14/24 07:00 Hold Diagnostic Test (Pha) 1 strip ACHS 05/13/24 11:30 05/19/24 11:25 1 STRIP Insulin Human Regular HS SC 05/13/24 22:00 05/16/24 22:02 3 UNITS Insulin Human Regular AC SC 05/13/24 11:30 05/15/24 11:30 3 UNITS Dextrose 50 ml UD PRN IV 05/13/24 11:00 05/14/24 06:02 50 ML Famotidine 20 mg DAILY PO 05/14/24 10:00 05/19/24 09:20 20 MG Heparin Sodium (Porcine) 5,000 units Q12HR SC 05/13/24 22:00 05/19/24 09:27 5,000 UNITS Clindamycin Phosphate 50 ml @ 50 mls/hr Q8HR IV 05/13/24 14:00 05/19/24 06:10 50 MLS/HR Ceftriaxone Sodium 50 ml @ 100 mls/hr DAILY@09 IV 05/14/24 09:00 05/19/24 09:20 100 MLS/HR Furosemide 80 mg BIDD IV 05/13/24 18:00 05/19/24 06:09 80 MG Ergocalciferol 50,000 unit Q7D PO 05/14/24 16:00 05/14/24 16:20 50,000 UNIT Iron Sucrose 110 ml @ 110 mls/hr DAILY@1200 IV 05/15/24 12:00 05/19/24 12:59 05/19/24 11:40 110 MLS/HR Epoetin Des-epbx 6,000 unit TUTHSA SC 05/16/24 21:00 05/18/24 21:17 6,000 UNIT Sevelamer HCl 1,600 mg TIDWM PO 05/15/24 12:00 05/19/24 09:20 1,600 MG Examination: GENERAL:Normal, CVS:Normal, ABDOMEN:Normal laboratory and microbiology Laboratory Tests 05/19/24 05:39 Test 05/19/24 05:39 Range/Units Serum Glucose 88 74-106 mg/dL Microbiology Date/Time Source Procedure Growth Status 05/18/24 14:55 Arm Gram Stain - Final Resulted 05/18/24 14:55 Arm Wound Culture - Preliminary Resulted 05/14/24 16:00 Voided Urine Urine Culture - Final Complete Problem List/Assessment/Plan Problem List/Assessment/Plan new ESRD Chronic diastolic heart failure Diabetes mellitus type 2 Hypertension Anemia of chronic kidney disease Hyperphosphatemia Status post tunneled hemodialysis catheter 05/14 Hemodialysis monday or monday Epogen 6000 units 3x a week SubQ, Loading IV iron due to iron deficiency daily po diuretics and fluid restriction 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
--- NOTE | 2024-05-19 14:13 | DVHPNRES ---
Progress Note Date Seen: May 19, 2024 Resident Creating Document: SHELBI GUEVARA RESIDENT Medical Necessity Reason Pt with a Central, PICC or Fol: Yes The following are medically ne: Sainz Catheter Subjective Review of Systems Patient is a 89-year-old female with past medical history of hypertension, CKD stage IV/5, diabetes, dementia, 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 According to the patient, she was brought in by her daughter after she experienced an episode of feeling dizzy, patient notes she was lying down when all of a sudden she started feeling dizziness which lasted for 30 minutes. Patient reports that she often feels dizzy, usually when she sitting the dizziness will come all of a sudden. Patient also notes that she has loss of appetite, has not had a meal for the last 2 days. Denies any dysphagia or odynophagia, just states lack of appetite as the reason for not eating. Past surgical history: Splenectomy Home medications: Allopurinol, atorvastatin, furosemide, glipizide, linagliptin, losartan Past Hospitalization: March 2024 for sepsis due to UTI Social & Personal history: Patient lives with her daughter. Denies using tobacco, alcohol, drugs. Allergies: Denies Patient seen and examined at bedside. Patient is AOx1. Daughter at bedside. Objective vital signs Vital Sign Date Time Temp Pulse Resp B/P (MAP) Pulse Ox O2 Delivery O2 Flow Rate FiO2 05/19/24 09:00 97.3 64 17 132/64 (86) 94 97.3 05/19/24 08:00 Nasal Cannula* 2 28 Total Intake and Output 05/18/24 05/18/24 05/19/24 15:00 23:00 07:00 Intake Total 50 ml 450 ml 50 ml Output Total 200 ml 150 ml Balance 50 ml 250 ml -100 ml medications Current Medications Medications Dose Ordered Sig/Francoise Route Start Time Stop Time Status Last Admin Dose Admin Insulin Glargine 15 units QAM SC 05/14/24 07:00 Hold Diagnostic Test (Pha) 1 strip ACHS 05/13/24 11:30 05/19/24 11:25 1 STRIP Insulin Human Regular HS SC 05/13/24 22:00 05/16/24 22:02 3 UNITS Insulin Human Regular AC SC 05/13/24 11:30 05/15/24 11:30 3 UNITS Dextrose 50 ml UD PRN IV 05/13/24 11:00 05/14/24 06:02 50 ML Famotidine 20 mg DAILY PO 05/14/24 10:00 05/19/24 09:20 20 MG Heparin Sodium (Porcine) 5,000 units Q12HR SC 05/13/24 22:00 05/19/24 09:27 5,000 UNITS Clindamycin Phosphate 50 ml @ 50 mls/hr Q8HR IV 05/13/24 14:00 05/19/24 06:10 50 MLS/HR Ceftriaxone Sodium 50 ml @ 100 mls/hr DAILY@09 IV 05/14/24 09:00 05/19/24 09:20 100 MLS/HR Furosemide 80 mg BIDD IV 05/13/24 18:00 05/19/24 06:09 80 MG Ergocalciferol 50,000 unit Q7D PO 05/14/24 16:00 05/14/24 16:20 50,000 UNIT Epoetin Des-epbx 6,000 unit TUTHSA SC 05/16/24 21:00 05/18/24 21:17 6,000 UNIT Sevelamer HCl 1,600 mg TIDWM PO 05/15/24 12:00 05/19/24 12:26 1,600 MG Examination General Appearance: Cooperative. Well developed. Well nourished. NAD Head Exam: Normal inspection Neck Exam: Normal inspection. Non-tender. Normal alignment Pulmonary/Respiratory: Chest non-tender. Clear bilateral breath sounds, no crackles, wheezing. Cardiovascular/Chest: Regular rate and rhythm. Systolic murmur heard. No JVD. Peripheral Pulses: 2+ Radial (R). 2+ Radial (L). 2+ Pedal (R). 2+ Pedal (L) Abdominal Exam: Normal bowel sounds. Soft. normal abdomen, no visible veins, Nontender. No hepatospenomegaly. No masses Ankle Exam: Negative ankle edema Lower extremities: 1+ lower extremity edema. Bilateral lower extremity erythema. Scabbing ulceration noted on the right lower extremity anterior aspect. Right heel erythema? Upper extremities: Bilateral upper extremity erythema, mild tenderness to palpation. Erythema well demarcated in the right upper extremity, poorly demarcated in the left upper extremity, improving Neuro/Mental Status: A&O x2. Coherent. Skin Exam: Normal inspection. Normal color. Warm. Dry Neurologic: Right arm resting tremor laboratory and microbiology Laboratory Tests 05/19/24 05:39 Test 05/19/24 05:39 Range/Units Serum Glucose 88 74-106 mg/dL Microbiology Date/Time Source Procedure Growth Status 05/18/24 14:55 Arm Gram Stain - Final Resulted 05/18/24 14:55 Arm Wound Culture - Preliminary Resulted 05/14/24 16:00 Voided Urine Urine Culture - Final Complete Labs and/or images reviewed: Labs reviewed by me, Image(s) reviewed by me Problem List/Assessment/Plan Problem List/Assessment/Plan Uremic encephalopathy Generalized weakness - ordered head CT: No acute intracranial hemorrhage. No CT findings of territorial ischemia. - completed dialysis on 05/15/2024 - 2nd session of dialysis today on 05/17/2024. - repeat head CT done on 05/17/2024: No CT evidence of acute intracranial abnormality. Acute on chronic diastolic CHF, EF 55% Acute hypoxic respiratory failure due to above, on 2 L O2 via [place] Cardiorenal syndrome - CXR: Findings most likely represent development of congestive failure when compared to 03/21/2024 - IV Lasix 80 mg b.i.d. - ABG: PO2 43.3 - consulted director social welfare for home oxygen arrangement Possible pneumonia, Gram-positive versus Gram-negative can not be ruled out Upper and Lower extremity cellulitis can not be ruled out at present - extremity venous study: No sonographic evidence for deep vein thrombosis in bilateral lower extremity veins - IV ceftriaxone - IV clindamycin 600 mg Q 8 hours - ipratropium, albuterol med nebs - lower extremity MRI: Circumferential subcutaneous edema involving the entire left and right lower extremity which may reflect cellulitis. Diffuse intramuscular edema of the right and left lower extremity which may reflect myositis of infectious or inflammatory etiology. Please note that compartment syndrome is a clinical diagnosis and correlation with physical symptoms is recommended. Overall decrease in muscle bulk to be correlated for disuse given the diffuse distribution. Patchy marrow edema in the medial femoral condyle possibly representing contusion. Osteomyelitis considered less likely as there is no consult replacement of the marrow. 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 t.i.d. - nephrology on board; scheduled for dialysis today on 05/14/2024 - Epogen 59953 IV post dialysis Type 2 diabetes, Hb A1c 7.1 Hypertension, BP currently running on the softer side - insulin Lantus 15 units q.a.m. - holding home medication amlodipine 10 mg due to bilateral lower extremity swelling Discharge planning: Pending 1) home oxygen 2) home health for PT and wound care and 3) chair time for dialysis PUD prophylaxis: Pepcid 20 mg DVT prophylaxis: Heparin 5000 units b.i.d. Plan discussed with patient Plan discussed with Dr. Rodriguez Plan discussed with: Patient, Daughter, Other (RN) Dietary Evaluation Review Comments: Follow CCHO-60 Renal standard 2g Na 3K Low Phos diet Expected Outcomes/Goals: controlled DM, controlled Renal disease with diet and dialysis Addendum Addendum Addendum I was physically present for the [place] portions of the service provided to patient by THE RESIDENT. I have reviewed the documentation, discussed the case with resident and agree with the resident's documentation except as noted. Also the patient's clinical case was discussed with the patient's nurse. This medical document was created using an electronic medical record system with computerized dictation system. Although this document has been carefully reviewed, there might still be some phonetic and typographical errors. These areas are purely typographical due to imperfections of the software programs, and do not reflect any compromise in the patient's medical care. Late signature. Date of Service: May 19, 2024 Billing Provider: SCOOBY RODRIGUEZ MD Common Visit Codes: [id number] INP/OBS CARE(HIGH) SHELBI GUEVARA RESIDENT May 19, 2024 14:13 SCOOBY RODRIGUEZ MD May 19, 2024 17:36
[2024-05-19] MEDS: Nepro With Carbsteady Vanilla 8oz Carton PO SCH (18:49)
--- NOTE | 2024-05-19 19:10 | DVH ---
RIGHT Upper Extremity Venous Duplex Clinical History: Swelling and discoloration Comparison: None Technique: Duplex Doppler evaluation of the venous system of the RIGHT lower neck and upper extremity including color Doppler and spectral/pulsed waveform analysis was performed. Findings: The internal jugular vein demonstrates appropriate compressibility and waveform variability. The subclavian vein is patent on color Doppler evaluation without intraluminal thrombus and demonstra dona waveform variability. The visualized portion of the brachiocephalic vein is patent on color Doppler evaluation without intr aluminal thrombus and demonstrates waveform variability. The axillary vein demonstrates appropriate compressibility and waveform variability. The brachial veins demonstrate appropriate compressibility and patency on Doppler evaluation. The basilic vein demonstrates appropriate compressibility and patency on Doppler evaluation. The cephalic vein demonstrates appropriate compressibility and patency on Doppler evaluation. Impression: 1. No venous thrombus identified in the RIGHT upper extremity vessels evaluated above. 2. If clinical concern/symptoms persist or worsen, short-interval follow-up study is suggested. HS:Y
[2024-05-20] VITALS (8 sets, daily range): BP systolic 125–153; BP diastolic 40–52; PULSE 68–82; RESP 17–19; TEMP 97.3–98; O2SAT 91–98
[2024-05-20 06:56] LABS: Anion Gap 10 (5-15); Carbon Dioxide 26 mmol/L (20-31); Chloride 102 mmol/L (98-107); Potassium 4.3 mmol/L (3.5-5.1); Sodium 138 mmol/L (136-145)
[2024-05-20 07:02] LABS: BUN/Creatinine Ratio 10.3 (10.0-20.0)
[2024-05-20 07:03] LABS: Blood Urea Nitrogen 35 mg/dL (9-23); Glucose 67 mg/dL (74-106)
[2024-05-20 07:31] LABS: Basophils # (auto) 0.1 10 ^3/uL (0-0.2); Basophils % (auto) 1.3 % (0.0-2.0); Eosinophils # (auto) 0.2 10 ^3/uL (0-0.8); Eosinophils % (auto) 3.1 % (0.0-7.0); Hematocrit 30.8 % (36.0-46.0); Hemoglobin 9.8 g/dL (12.2-16.2); Lymphocytes # (auto) 1.1 10 ^3/uL (0.4-5.4); Lymphocytes % (auto) 19.2 % (10.0-50.0); Mean Corpuscular Hemoglobin 27.8 pg (28.0-32.0); Mean Corpuscular Hgb Conc. 31.8 g/dL (32.0-36.0); Mean Corpuscular Volume 87.4 fL (80.0-100.0); Monocytes # (auto) 0.5 10 ^3/uL (0-1.3); Monocytes % (auto) 9.5 % (0.0-12.0); Neutrophils # (auto) 3.8 10 ^3/uL (1.6-8.6); Neutrophils % (auto) 66.9 % (37.0-80.0); Nucleated Red Blood Cells % 1.1 %; Platelet Count (auto) 140 10^3/uL (140-450); Red Blood Cells 3.53 10^6/uL (4.0-5.20); Red Cell Distribution Width 17.6 % (11.8-14.3); White Blood Cell 5.6 10^3/uL (4.4-10.8)
--- NOTE | 2024-05-20 16:22 | DVHPN2 ---
Progress Note Date Seen: May 20, 2024 Medical Necessity Reason Pt with a Central, PICC or Fol: Yes The following are medically ne: Sainz Catheter Subjective Patient reports: No new complaints Review of Systems: HEENT:Normal, CVS:Normal, RESPIRATORY:Normal, GI:Normal, :Normal, MSK:Normal, NEURO:Normal Objective vital signs Vital Sign Date Time Temp Pulse Resp B/P (MAP) Pulse Ox O2 Delivery O2 Flow Rate FiO2 05/20/24 13:00 97.3 69 17 149/52 (84) 96 97.3 05/20/24 08:00 Nasal Cannula* 2 28 Total Intake and Output 05/19/24 05/19/24 05/20/24 15:00 23:00 07:00 Intake Total 100 ml 100 ml 50 ml Output Total 200 ml 100 ml Balance 100 ml -100 ml -50 ml medications Current Medications Medications Dose Ordered Sig/Francoise Route Start Time Stop Time Status Last Admin Dose Admin Insulin Glargine 15 units QAM SC 05/14/24 07:00 Hold Diagnostic Test (Pha) 1 strip ACHS 05/13/24 11:30 05/20/24 11:30 1 STRIP Insulin Human Regular HS SC 05/13/24 22:00 05/16/24 22:02 3 UNITS Insulin Human Regular AC SC 05/13/24 11:30 05/15/24 11:30 3 UNITS Dextrose 50 ml UD PRN IV 05/13/24 11:00 05/14/24 06:02 50 ML Famotidine 20 mg DAILY PO 05/14/24 10:00 05/20/24 10:47 20 MG Heparin Sodium (Porcine) 5,000 units Q12HR SC 05/13/24 22:00 05/20/24 10:56 5,000 UNITS Clindamycin Phosphate 50 ml @ 50 mls/hr Q8HR IV 05/13/24 14:00 05/20/24 13:26 50 MLS/HR Ceftriaxone Sodium 50 ml @ 100 mls/hr DAILY@09 IV 05/14/24 09:00 05/20/24 10:47 100 MLS/HR Furosemide 80 mg BIDD IV 05/13/24 18:00 05/20/24 06:06 80 MG Ergocalciferol 50,000 unit Q7D PO 05/14/24 16:00 05/14/24 16:20 50,000 UNIT Epoetin Des-epbx 6,000 unit TUTHSA SC 05/16/24 21:00 05/18/24 21:17 6,000 UNIT Sevelamer HCl 1,600 mg TIDWM PO 05/15/24 12:00 05/20/24 13:23 1,600 MG Enteral Nutritional Formula 240 ml TIDWM PO 05/19/24 18:00 05/20/24 12:04 240 ML laboratory and microbiology Laboratory Tests 05/20/24 05:15 Test 05/20/24 05:15 Range/Units Serum Glucose 67 L 74-106 mg/dL Microbiology Date/Time Source Procedure Growth Status 05/18/24 14:55 Arm Gram Stain - Final Resulted 05/18/24 14:55 Arm Wound Culture - Preliminary Resulted 05/14/24 16:00 Voided Urine Urine Culture - Final Complete Problem List/Assessment/Plan Problem List/Assessment/Plan new ESRD Chronic diastolic heart failure Diabetes mellitus type 2 Hypertension Anemia of chronic kidney disease Hyperphosphatemia Status post tunneled hemodialysis catheter 05/14 Hemodialysis monday given staffing issues today Epogen 6000 units 3x a week SubQ, Loading IV iron due to iron deficiency daily po diuretics and fluid restriction 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
--- NOTE | 2024-05-20 17:24 | DVHPNRES ---
Progress Note Date Seen: May 20, 2024 Resident Creating Document: SHELBI GUEVARA RESIDENT Medical Necessity Reason Pt with a Central, PICC or Fol: Yes The following are medically ne: Sainz Catheter Subjective Review of Systems Patient is a 89-year-old female with past medical history of hypertension, CKD stage IV/5, diabetes, dementia, 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 According to the patient, she was brought in by her daughter after she experienced an episode of feeling dizzy, patient notes she was lying down when all of a sudden she started feeling dizziness which lasted for 30 minutes. Patient reports that she often feels dizzy, usually when she sitting the dizziness will come all of a sudden. Patient also notes that she has loss of appetite, has not had a meal for the last 2 days. Denies any dysphagia or odynophagia, just states lack of appetite as the reason for not eating. Past surgical history: Splenectomy Home medications: Allopurinol, atorvastatin, furosemide, glipizide, linagliptin, losartan Past Hospitalization: March 2024 for sepsis due to UTI Social & Personal history: Patient lives with her daughter. Denies using tobacco, alcohol, drugs. Allergies: Denies Patient seen and examined at bedside. Patient is AOx1. Daughter at bedside Objective vital signs Vital Sign Date Time Temp Pulse Resp B/P (MAP) Pulse Ox O2 Delivery O2 Flow Rate FiO2 05/20/24 13:00 97.3 69 17 149/52 (84) 96 97.3 05/20/24 08:00 Nasal Cannula* 2 28 Total Intake and Output 05/19/24 05/19/24 05/20/24 15:00 23:00 07:00 Intake Total 100 ml 100 ml 50 ml Output Total 200 ml 100 ml Balance 100 ml -100 ml -50 ml medications Current Medications Medications Dose Ordered Sig/Francoise Route Start Time Stop Time Status Last Admin Dose Admin Insulin Glargine 15 units QAM SC 05/14/24 07:00 Hold Diagnostic Test (Pha) 1 strip ACHS 05/13/24 11:30 05/20/24 17:14 1 STRIP Insulin Human Regular HS SC 05/13/24 22:00 05/16/24 22:02 3 UNITS Insulin Human Regular AC SC 05/13/24 11:30 05/15/24 11:30 3 UNITS Dextrose 50 ml UD PRN IV 05/13/24 11:00 05/14/24 06:02 50 ML Famotidine 20 mg DAILY PO 05/14/24 10:00 05/20/24 10:47 20 MG Heparin Sodium (Porcine) 5,000 units Q12HR SC 05/13/24 22:00 05/20/24 10:56 5,000 UNITS Clindamycin Phosphate 50 ml @ 50 mls/hr Q8HR IV 05/13/24 14:00 05/20/24 13:26 50 MLS/HR Ceftriaxone Sodium 50 ml @ 100 mls/hr DAILY@09 IV 05/14/24 09:00 05/20/24 10:47 100 MLS/HR Furosemide 80 mg BIDD IV 05/13/24 18:00 05/20/24 06:06 80 MG Ergocalciferol 50,000 unit Q7D PO 05/14/24 16:00 05/14/24 16:20 50,000 UNIT Epoetin Des-epbx 6,000 unit TUTHSA SC 05/16/24 21:00 05/18/24 21:17 6,000 UNIT Sevelamer HCl 1,600 mg TIDWM PO 05/15/24 12:00 05/20/24 13:23 1,600 MG Enteral Nutritional Formula 240 ml TIDWM PO 05/19/24 18:00 05/20/24 12:04 240 ML Examination General Appearance: Cooperative. Well developed. Well nourished. NAD Head Exam: Normal inspection Neck Exam: Normal inspection. Non-tender. Normal alignment Pulmonary/Respiratory: Chest non-tender. Clear bilateral breath sounds, no crackles, wheezing. Cardiovascular/Chest: Regular rate and rhythm. Systolic murmur heard. No JVD. Peripheral Pulses: 2+ Radial (R). 2+ Radial (L). 2+ Pedal (R). 2+ Pedal (L) Abdominal Exam: Normal bowel sounds. Soft. normal abdomen, no visible veins, Nontender. No hepatospenomegaly. No masses Ankle Exam: Negative ankle edema Lower extremities: 1+ lower extremity edema. Bilateral lower extremity erythema. Scabbing ulceration noted on the right lower extremity anterior aspect. Right heel erythema? Upper extremities: Bilateral upper extremity erythema, mild tenderness to palpation. Erythema well demarcated in the right upper extremity, poorly demarcated in the left upper extremity, improving Neuro/Mental Status: A&O x2. Coherent. Skin Exam: Normal inspection. Normal color. Warm. Dry Neurologic: Right arm resting tremor laboratory and microbiology Laboratory Tests 05/20/24 05:15 Test 05/20/24 05:15 Range/Units Serum Glucose 67 L 74-106 mg/dL Microbiology Date/Time Source Procedure Growth Status 05/18/24 14:55 Arm Gram Stain - Final Resulted 05/18/24 14:55 Arm Wound Culture - Preliminary Resulted 05/14/24 16:00 Voided Urine Urine Culture - Final Complete Labs and/or images reviewed: Labs reviewed by me, Image(s) reviewed by me Problem List/Assessment/Plan Problem List/Assessment/Plan Uremic encephalopathy Generalized weakness - ordered head CT: No acute intracranial hemorrhage. No CT findings of territorial ischemia. - completed dialysis on 05/15/2024 - 2nd session of dialysis today on 05/17/2024. - repeat head CT done on 05/17/2024: No CT evidence of acute intracranial abnormality. Acute on chronic diastolic CHF, EF 55% Acute hypoxic respiratory failure due to above, on 2 L O2 via [place] Cardiorenal syndrome - CXR: Findings most likely represent development of congestive failure when compared to 03/21/2024 - IV Lasix 80 mg b.i.d. - ABG: PO2 43.3 - consulted social media project manager for home oxygen arrangement Possible pneumonia, Gram-positive versus Gram-negative can not be ruled out Upper and Lower extremity cellulitis can not be ruled out at present - extremity venous study: No sonographic evidence for deep vein thrombosis in bilateral lower extremity veins - IV ceftriaxone - IV clindamycin 600 mg Q 8 hours - ipratropium, albuterol med nebs - lower extremity MRI: Circumferential subcutaneous edema involving the entire left and right lower extremity which may reflect cellulitis. Diffuse intramuscular edema of the right and left lower extremity which may reflect myositis of infectious or inflammatory etiology. Please note that compartment syndrome is a clinical diagnosis and correlation with physical symptoms is recommended. Overall decrease in muscle bulk to be correlated for disuse given the diffuse distribution. Patchy marrow edema in the medial femoral condyle possibly representing contusion. Osteomyelitis considered less likely as there is no consult replacement of the marrow. 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 t.i.d. - nephrology on board; scheduled for dialysis today on 05/14/2024 - Epogen 82736 IV post dialysis Type 2 diabetes, Hb A1c 7.1 Hypertension, BP currently running on the softer side - insulin Lantus 15 units q.a.m. - holding home medication amlodipine 10 mg due to bilateral lower extremity swelling Discharge planning: Pending chair time for dialysis PUD prophylaxis: Pepcid 20 mg DVT prophylaxis: Heparin 5000 units b.i.d. Goals of care: Full code, discussed for >16 minutes on 05/13/24 Plan discussed with patient Plan discussed with Dr. Ware Plan discussed with: Patient, Other (RN) My Orders My Orders Orders - SHELBI GUEVARA RESIDENT Procedure Category Date Status Time Cleanse Wound With Ns GRACE 05/19/24 In Process 13:30 Foam Cradle To ORDERS 05/19/24 Transmitted Bilateral Feet 13:30 Rt Upper Dvt US 05/19/24 Resulted 18:15 Dietary Evaluation Review Comments: Follow CCHO-60 Renal standard 2g Na 3K Low Phos diet Expected Outcomes/Goals: controlled DM, controlled Renal disease with diet and dialysis Date of Service: May 20, 2024 Billing Provider: REGIANLD VILLA MD Common Visit Codes: [id number] INP/OBS CARE(HIGH) SHELBI GUEVARA May 20, 2024 17:24 REGINALD VILLA MD May 21, 2024 20:18
[2024-05-21 04:48] VITALS: BP 149/55; PULSE 77; RESP 16; TEMP 97.5; O2SAT 93
[2024-05-21 08:00] VITALS: PULSE 5; PULSE 82; RESP 18; O2SAT 94
[2024-05-21 08:43] VITALS: BP 117/62; PULSE 65; RESP 18; TEMP 98; O2SAT 96
[2024-05-21 12:42] VITALS: BP 149/55; TEMP 36.7
[2024-05-21 13:00] VITALS: BP 166/65; PULSE 74; RESP 16; TEMP 97.5; O2SAT 97
--- NOTE | 2024-05-21 16:00 | DVHDSRES ---
Discharge Summary Date of Admission Resident Creating Document: SHELBI GUEVARA RESIDENT May 12, 2024 at 22:51 Date of Discharge: May 21, 2024 Admitting Diagnosis Generalized weakness Labs/Diagnostic Data: Laboratory Results Test 05/20/24 05:15 05/19/24 05:39 05/17/24 15:00 05/16/24 10:45 White Blood Count 5.6 10^3/uL (4.4-10.8) Red Blood Count 3.53 10^6/uL (4.0-5.20) Hemoglobin 9.8 g/dL (12.2-16.2) Hematocrit 30.8 % (36.0-46.0) Mean Corpuscular Volume 87.4 fL (80.0-100.0) Mean Corpuscular Hemoglobin 27.8 pg (28.0-32.0) Mean Corpuscular Hemoglobin Concent 31.8 g/dL (32.0-36.0) Red Cell Distribution Width 17.6 % (11.8-14.3) Platelet Count 140 10^3/uL (140-450) Mean Platelet Volume 8.2 fL (6.9-10.8) Neutrophils (%) (Auto) 66.9 % (37.0-80.0) Lymphocytes (%) (Auto) 19.2 % (10.0-50.0) Monocytes (%) (Auto) 9.5 % (0.0-12.0) Eosinophils (%) (Auto) 3.1 % (0.0-7.0) Basophils (%) (Auto) 1.3 % (0.0-2.0) Neutrophils # (Auto) 3.8 10 ^3/uL (1.6-8.6) Lymphocytes # (Auto) 1.1 10 ^3/uL (0.4-5.4) Monocytes # (Auto) 0.5 10 ^3/uL (0-1.3) Eosinophils # (Auto) 0.2 10 ^3/uL (0-0.8) Basophils # (Auto) 0.1 10 ^3/uL (0-0.2) Nucleated Red Blood Cells 1.1 % Sodium Level 138 mmol/L (136-145) Potassium Level 4.3 mmol/L (3.5-5.1) Chloride Level 102 mmol/L (98-107) Carbon Dioxide Level 26 mmol/L (20-31) Anion Gap 10 (5-15) Blood Urea Nitrogen 35 mg/dL (9-23) Creatinine 3.39 mg/dL (0.550-1.02) Glomerular Filtration Rate Calc 13 mL/min (>90) BUN/Creatinine Ratio 10.3 (10.0-20.0) Serum Glucose 67 mg/dL (74-106) Calcium Level 9.0 mg/dL (8.7-10.4) Magnesium Level 2.1 mg/dL (1.6-2.6) Blood Gas Specimen Type Arterial Blood Gas Sample Site Right radial Blood Gas Patient Temperature 37.0 Arterial Blood Date Drawn [id number] Arterial Blood pH 7.377 (7.350-7.450) Arterial Blood Partial Pressure CO2 49.5 mmHg (32.0-45.0) Arterial Blood Partial Pressure O2 43.3 mmHg (83.0-108.0) Arterial Blood HCO3 28.4 mmol/L (21.0-28.0) Arterial Blood Oxygen Saturation 79.6 % (94.0-98.0) Arterial Blood Base Excess 2.6 mmol/L (-2.0-3.0) Arterial Blood Oxyhemoglobin 78.6 % (94.0-98.0) Arterial Blood Carboxyhemoglobin 0.7 % (0.5-1.5) Arterial Blood Methemoglobin 0.5 % (0.0-1.5) Ayaan Test Yes Blood Gas Total Hemoglobin 10.50 g/dL (12.0-16.0) Blood Gas Modality Room air FiO2 % 21.0 Blood Gas Critical Value Read Back Yes Blood Gas Notified Whom cindy Bowen Blood Gas Notified Time [id number] Blood Gas Notified By Operations Supervisor [employer] kellee morales POC Glucose 126 mg/dl (70-106) Test 05/16/24 05:10 05/14/24 16:00 05/14/24 06:59 05/13/24 10:05 Parathyroid Hormone (Intact) 191.1 pg/mL (18.4-80.1) Urine Color Light-orange (Yellow) Urine Clarity Ex.turbid (Clear) Urine pH 5.5 (5.0-9.0) Urine Specific Reading 1.012 (1.001-1.035) Urine Protein 2+ (Negative) Urine Ketones Negative (Negative) Urine Blood 3+ /uL (Negative) Urine Nitrite Negative (Negative) Urine Bilirubin Negative (Negative) Urine Urobilinogen Normal mg/dL (Negative) Urine Leukocyte Esterase 3+ /uL (Negative) Urine RBC 910 /hpf (0 - 4) Urine WBC 127 /hpf (0 - 5) Urine WBC Clumps Present /hpf (None Seen) Urine Squamous Epithelial Cells Few /hpf (<5) Urine Bacteria Few /hpf (None Seen) Urine Hyaline Casts Many /lpf (0 - 2) Urine Mucus Few (None Seen) Urine Creatinine 105.72 mg/dL (30.0-125.0) Urine Protein/Creatinine Ratio 1.58 Urine Sodium 12 mmol/L (40-220) Urine Glucose Normal mg/dL (Normal) Urine Total Protein 167.3 mg/dL (1-14) Hepatitis A IgM Antibody Negative Hepatitis B Surface Antigen Negative (Negative) Hepatitis B Core IgM Antibody Negative (Negative) Hepatitis C Antibody Negative (Negative) Hemoglobin A1c 7.1 % A1C (<5.7) B-Type Natriuretic Peptide 1443.71 pg/mL (0-100) Test 05/13/24 02:41 05/13/24 01:46 05/13/24 01:41 05/12/24 21:08 Prothrombin Time 12.5 sec (9.3-11.8) Prothrombin Time INR 1.19 (0.9-1.15) Activated Partial Thromboplast Time 27.5 SEC (24.5-34.5) Iron Level 18 ug/dL (50-170) Total Iron Binding Capacity 313 ug/dL (250-425) Percent Iron Saturation 5.8 % (15-50) Vitamin D 25-Hydroxy 28.8 ng/mL (30.0-100) Phosphorus Level 6.7 mg/dL (2.4-5.1) Ferritin 31.4 ng/mL (10-291) Troponin I High Sensitivity 25 ng/L (</=34) Test 05/12/24 16:12 Lactic Acid Level 1.2 mmol/L (0.4-2.0) Total Bilirubin 0.3 mg/dL (0.2-1.0) Aspartate Amino Transferase (AST) 26 U/L (13-40) Alanine Aminotransferase (ALT) 16 U/L (7-40) Alkaline Phosphatase 98 U/L (46-116) Total Protein 6.7 g/dL (5.7-8.2) Albumin 3.9 g/dL (3.2-4.8) Other Laboratory Tests 05/20/24 05:15 Brief Hx & Hospital Course: Patient is a 89-year-old female with past medical history of hypertension, CKD stage IV/5, diabetes, dementia, 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 According to the patient, she was brought in by her daughter after she experienced an episode of feeling dizzy, patient notes she was lying down when all of a sudden she started feeling dizziness which lasted for 30 minutes. Patient reports that she often feels dizzy, usually when she sitting the dizziness will come all of a sudden. Patient also notes that she has loss of appetite, has not had a meal for the last 2 days. Denies any dysphagia or odynophagia, just states lack of appetite as the reason for not eating. Hospital course: Head CT showed no acute intracranial hemorrhage, no CT findings of territorial ischemia. Patient was scheduled for dialysis and she completed 4-5 sessions of dialysis in the hospital. Chest x-ray showed findings most likely representing development of congestive heart failure for which patient was started on IV Lasix 80 mg b.i.d.. On ABG patient's PO2 was 43.3 for which home oxygen was arranged for the patient. For bilateral extremity swelling, extremity venous study showed no sonographic evidence of DVT in bilateral lower extremity veins, right upper extremity Doppler also showed no evidence of thrombosis. Lower extremity MRI showed circumferential subcutaneous edema involving the entire left and right lower extremity which may reflect cellulitis diffuse intramuscular edema of the right and left lower extremity which may reflect myositis of infectious or inflammatory etiology. Overall decrease in muscle bulk to be correlated for disuse given the diffuse distribution. Patchy marrow edema in the medial femoral condyle possibly representing contusion, osteomyelitis considered less likely as there is no consult replacement of the marrow. Wound care and wound consult was ordered. Patient was continued on IV ceftriaxone and IV clindamycin for possible cellulitis. Ipratropium and albuterol med nebs were also continued. For her hyperkalemia she was managed with hyperkalemia protocol in continued on Lokelma 10 g p.o. t.i.d., Nephrology was also taken on board. Home health for wound care and physical therapy was arranged for the patient, home oxygen was also arranged For the patient as well as dialysis chair time with [facility] nephrology. On the day of discharge, patient appeared well and was alert and oriented in 2 spheres. Transportation with oxygen was arranged for the patient. Details of hospitalization and discharge plan was discussed with the patient started at bedside in detail her all questions were answered and concerns were addressed. Her hospital course was uncomplicated. Consults/Reason for consult Nephrology: ESRD requiring hemodialysis Podiatry: For possible osteomyelitis Wound consult: For lower extremity scabbing ulcers patient services specialist: For home oxygen for home health and for dialysis chair time. Radiology: For dialysis catheter placement Operations or Procedures CLINICAL HISTORY: To rule out DVT TECHNIQUE: Color and duplex doppler imaging of the bilateral lower extremity veins was performed. Vessel compression if possible was also performed. WID: COMPARISON: US BILAT LOWER DVT on DOS: 03/17/24 FINDINGS: Limited study due to patient limited mobility Right Lower Extremity: Right common femoral vein: Normal compressibility and flow. Right femoral vein: Normal compressibility and flow. Right popliteal vein: Not visualized Proximal calf veins are not visualized Left Lower Extremity: Left common femoral vein: Normal compressibility and flow. Left femoral vein: Normal compressibility and flow. Left popliteal vein: Normal compressibility and flow. Proximal calf veins are normally compressible. IMPRESSION: NO SONOGRAPHIC EVIDENCE FOR DEEP VENOUS THROMBOSIS IN THE BILATERAL LOWER EXTREMITY VEINS although the right popliteal and posterior tibial veins were not visualized.. EXAM: CT HEAD WITHOUT CONTRAST INDICATION: L sided weakness TECHNIQUE: CT of the head without intravenous contrast. Radiation Dose Information: CT Dose: CTDI volume is 55.27 mGy. Dose-length product is 775.47 mGy*cm The dose indicators for CT are the volume Computed Tomography (CT) Dose Index (CTDIvol) and the Dose Length Product (DLP), and are measured in units of mGy and mGy-cm, respectively. These indicators are not patient dose, but values generated from the CT scanner acquisition factors. The report includes radiation exposure data for exposures received during this examination. COMPARISON: CT HEAD WITHOUT CONTRAST on DOS: 05/15/24, CT HEAD WITHOUT CONTRAST on DOS: 03/18/24 FINDINGS: There is no evidence of acute intracranial hemorrhage, extra-axial collection, mass effect, midline shift, herniation or hydrocephalus. The ventricles, sulci and cisterns are age appropriate. The dobbs-white differentiation is intact. Patchy periventricular and subcortical white matter hypoattenuation is nonspecific but may be related to small vessel ischemic disease. The visualized paranasal sinuses and mastoid air cells are clear. The surrounding soft tissues and osseous structures are unremarkable. IMPRESSION: 1. No CT evidence of acute intracranial abnormality. If there is clinical concern for acute ischemia, MRI is recommended for further evaluation. EXAM: MRI MRI L TIB FIB WO CONTRAST L CLINICAL INDICATION: 89 years old, Female; Lower extremity erythema, scabbing ulcers. COMPARISON: None TECHNIQUE: Multiplanar, multisequence MRI of the left tibia-fibula (lower leg) was performed without intravenous contrast. Contrast: None INTERPRETATION: Motion limits evaluation but the images are still of diagnostic value. Bones: Focus of ill-defined T2 hyperintensity in the medial femoral condyle with patchy T1 hypointensity. Bone marrow signal is otherwise unremarkable. There is no fracture. Visualized joint spaces are maintained. Soft tissues: There is diffuse circumferential subcutaneous edema in the entire visualized lower extremity from above the knee down to the hindfoot. There is no obvious fluid collection. There is no mass. No high-grade tendon or ligament injury. Mild decreased muscle bulk throughout the calf. Diffuse intramuscular edema in all muscle compartments. There is a knee joint effusion. IMPRESSION: 1. Circumferential subcutaneous edema involving the entire left lower extremity which may reflect cellulitis. 2. Diffuse intramuscular edema which may reflect myositis of infectious or inflammatory etiology. Please note that compartment syndrome is a clinical diagnosis and correlation with physical symptoms is recommended. Overall decrease in muscle bulk to be correlated for disuse given the diffuse distribution. 3. Patchy marrow edema in the medial femoral condyle possibly representing contusion. Osteomyelitis considered less likely as there is no consult replacement of the marrow. 4. Small knee joint effusion. EXAM: MRI MRI R TIB FIB WO CONTRAST R CLINICAL INDICATION: 89 years old, Female; Lower extremity erythema, scabbing ulcers. COMPARISON: None TECHNIQUE: Multiplanar, multisequence MRI of the right tibia-fibula (lower leg) was performed without intravenous contrast. Contrast: None INTERPRETATION: Bones: There is no fracture or bone marrow edema. There is no marrow replacing lesion. Visualized joint spaces are maintained. Soft tissues: There is diffuse circumferential subcutaneous edema in the entire visualized lower extremity from above the knee down to the hindfoot. There is no obvious fluid collection. There is a curvilinear T2 hyperintense structure in the heel which may reflect a dressing. There is no mass. No high-grade tendon or ligament injury. Mild decreased muscle bulk throughout the calf. Diffuse intramuscular edema in all muscle compartments. IMPRESSION: 1. Circumferential subcutaneous edema involving the entire right lower extremity which may reflect cellulitis. 2. Diffuse intramuscular edema which may reflect myositis of infectious or inflammatory etiology. Please note that compartment syndrome is a clinical diagnosis and correlation with physical symptoms is recommended. Overall decrease in muscle bulk to be correlated for disuse given the diffuse distribution. 3. No MR evidence of osteomyelitis. RIGHT Upper Extremity Venous Duplex Clinical History: Swelling and discoloration Comparison: None Technique: Duplex Doppler evaluation of the venous system of the RIGHT lower neck and upper extremity including color Doppler and spectral/pulsed waveform analysis was performed. Findings: The internal jugular vein demonstrates appropriate compressibility and waveform variability. The subclavian vein is patent on color Doppler evaluation without intraluminal thrombus and demonstrates waveform variability. The visualized portion of the brachiocephalic vein is patent on color Doppler evaluation without intraluminal thrombus and demonstrates waveform variability. The axillary vein demonstrates appropriate compressibility and waveform variability. The brachial veins demonstrate appropriate compressibility and patency on Doppler evaluation. The basilic vein demonstrates appropriate compressibility and patency on Doppler evaluation. The cephalic vein demonstrates appropriate compressibility and patency on Doppler evaluation. Impression: 1. No venous thrombus identified in the RIGHT upper extremity vessels evaluated above. 2. If clinical concern/symptoms persist or worsen, short-interval follow-up study is suggested. 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 requiring initiation of hemodialysis 3 times per week Hyperkalemia due to above S/p tunneled hemodialysis catheter placement on 05/14/2024 Possible pneumonia, Gram-positive versus Gram-negative can not be ruled out Upper and Lower extremity cellulitis can not be ruled out at present Acute on chronic diastolic CHF, EF 55% Acute hypoxic respiratory failure due to above, on 2 L O2 via NC Cardiorenal syndrome Type 2 diabetes, Hb A1c 7.1 Hypertension, BP currently running on the softer side Discharge Disposition: Home Discharge Instruct/Medications Diet: Cardiac 2g Na,low cholest, Renal Diet comment: CARDIAC 2g Na, LOW CHOLESTROL Activity: No Restrictions, As Tolerated Follow Up/Referral: please follow up with pcp in 1-2 weeks arranged dialysis chair time with [facility] nephrology Medications: clindamycin 150 4x/day for 3 days continue home meds Discharge Statement: "Patient was advised to return to the ER or call 911 if any headaches, dizziness, shortness of breath, chest pain, abdominal pain, bleeding, fevers, or worsening of medical condition. Patient was counseled about treatment plan, medications, possible side effects, patientverbalized understanding. All questions were answered to the best of my ability. 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 requiring initiation of hemodialysis 3 times per week Hyperkalemia due to above S/p tunneled hemodialysis catheter placement on 05/14/2024 Possible pneumonia, Gram-positive versus Gram-negative can not be ruled out Upper and Lower extremity cellulitis can not be ruled out at present Acute on chronic diastolic CHF, EF 55% Acute hypoxic respiratory failure due to above, on 2 L O2 via NC Cardiorenal syndrome Type 2 diabetes, Hb A1c 7.1 Hypertension, BP currently running on the softer side Date of Service: May 21, 2024 Billing Provider: REGINALD VILLA MD Common Visit Codes: 85343-IUW/OBS DISCH DAY >30min SHELBI GUEVARA May 21, 2024 16:00 REGINALD VILLA MD May 21, 2024 20:18
--- NOTE | 2024-05-21 16:59 | DVHPN2 ---
Progress Note Date Seen: May 21, 2024 Medical Necessity Reason Pt with a Central, PICC or Fol: Yes The following are medically ne: Sainz Catheter Subjective Patient reports: Other Review of Systems: Deferred Objective vital signs Vital Sign Date Time Temp Pulse Resp B/P (MAP) Pulse Ox O2 Delivery O2 Flow Rate FiO2 05/21/24 13:00 97.5 74 16 166/65 (98) 97 97.5 05/21/24 08:00 Nasal Cannula* 3 32 Total Intake and Output 05/20/24 05/20/24 05/21/24 15:00 23:00 07:00 Intake Total 100 ml 450 ml 225 ml Output Total 50 ml 100 ml Balance 100 ml 400 ml 125 ml laboratory and microbiology Laboratory Tests 05/20/24 05:15 Test 05/20/24 05:15 Range/Units Serum Glucose 67 L 74-106 mg/dL Microbiology Date/Time Source Procedure Growth Status 05/18/24 14:55 Arm Gram Stain - Final Resulted 05/18/24 14:55 Arm Wound Culture - Preliminary Resulted 05/14/24 16:00 Voided Urine Urine Culture - Final Complete Problem List/Assessment/Plan Problem List/Assessment/Plan new ESRD Chronic diastolic heart failure Diabetes mellitus type 2 Hypertension Anemia of chronic kidney disease Hyperphosphatemia Status post tunneled hemodialysis catheter 05/14 Hemodialysis monday uf 2L Epogen 6000 units 3x a week SubQ, Loading IV iron due to iron deficiency daily po diuretics and fluid restriction 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
[2024-05-21] MEDS ORDERED: CLIN150C PO (19:26)
== END 2024-05-21 14:00 | disposition home health service (06) | DRG 673 ==
LOC: EDBD 15:46 → EDUNIT# 15:46 → ER 15:46 → TELE 22:51 → TELE-WESTW 05-13 04:26
PROVIDERS: ADMIT Student in an Organized Health Care Education/Training Program; ATTEND Student in an Organized Health Care Education/Training Program
PROC: 0JH63XZ Insertion of Tunneled Vascular Access Device into Chest Subcutaneous Tissue and Fascia, Percutaneous Approach (ICD-10-PCS; principal; 2024-05-14)
PROC: 02H633Z Insertion of Infusion Device into Right Atrium, Percutaneous Approach (ICD-10-PCS; 2024-05-14)
PROC: B5181ZA Fluoroscopy of Superior Vena Cava using Low Osmolar Contrast, Guidance (ICD-10-PCS; 2024-05-14)
PROC: B548ZZA Ultrasonography of Superior Vena Cava, Guidance (ICD-10-PCS; 2024-05-14)
PROC: 5A1D70Z Performance of Urinary Filtration, Intermittent, Less than 6 Hours Per Day (ICD-10-PCS; 2024-05-15)
PROC: 5A1D70Z Performance of Urinary Filtration, Intermittent, Less than 6 Hours Per Day (ICD-10-PCS; 2024-05-17)
PROC: 5A1D70Z Performance of Urinary Filtration, Intermittent, Less than 6 Hours Per Day (ICD-10-PCS; 2024-05-21)
DX: N17.0 Acute kidney failure with tubular necrosis (principal); I50.33 Acute on chronic diastolic (congestive) heart failure; J15.69 Pneumonia due to other Gram-negative bacteria; J96.01 Acute respiratory failure with hypoxia; J15.9 Unspecified bacterial pneumonia; I13.2 Hypertensive heart and chronic kidney disease with heart failure and with stage 5 chronic kidney disease, or end stage renal disease; G93.49 Other encephalopathy; L03.116 Cellulitis of left lower limb; L03.115 Cellulitis of right lower limb; E87.5 Hyperkalemia; N18.6 End stage renal disease; E83.52 Hypercalcemia; E83.39 Other disorders of phosphorus metabolism; D63.1 Anemia in chronic kidney disease; E78.5 Hyperlipidemia, unspecified; F03.90 Unspecified dementia, unspecified severity, without behavioral disturbance, psychotic disturbance, mood disturbance, and anxiety; E11.22 Type 2 diabetes mellitus with diabetic chronic kidney disease; E83.41 Hypermagnesemia; Z88.6 Allergy status to analgesic agent; Z88.1 Allergy status to other antibiotic agents; Z90.49 Acquired absence of other specified parts of digestive tract; Z83.3 Family history of diabetes mellitus; Z82.49 Family history of ischemic heart disease and other diseases of the circulatory system
CPT/HCPCS: 36415; 36558; 36600; 70450; 71045; 73718; 77001; 80048; 80053; 80074; 81001; 82306; 82570; 82728; 82805; 82962; 83036; 83540; 83550; 83605; 83735; 83880; 83970; 84100; 84156; 84300; 84484; 85014; 85018; 85025; 85610; 85730; 86803; 87086; 87205; 87340; 90935; 93970; 93971; 94640; 96365; 96375; 97110; 97163; 97530; 99152; 99291; A4565; G0378; J1756; J1815; J2250; J3490

== ENCOUNTER 2024-06-08 09:55 | Emergency (ER) | payer MEDICARE, MEDICAID ==
[~2024-06-08] VITALS: Ht 162.6 cm; Wt 68.2 kg
[~2024-06-08 09:55] MED LIST changes: +CLIN150C PO
[2024-06-08] MEDS: PROPOFOL 100 ML IV ONE (10:13)
--- NOTE | 2024-06-08 10:13 | ED.PDOC ---
CPR-HPI HPI Comments 89-year-old female with known past medical history ESRD, CHF, DM, HTN brought in by EMS presents status post cardiac arrest. Patient had a witnessed cardiac arrest by family at home whom then called 911. Patient was fine prior to downtime with no stated complaints per EMS. Patients last known well time was x 5 minutes prior to EMS arrival. Patient was given 2 rounds of Epi, 1 sodium bicarb, and 1 calcium en route by EMS. Patient remained Asystole the entire transport to the hospital and upon arrival was in PEA at 116. Patients initial blood sugar was 117 and was given 500mL/NS through a left tib/fib IO. ROSC was obtained at 10:02 after ACLS protocols. 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, Medications, Allergies Allergies: Coded Allergies: Aspirin (Unverified Allergy, Unknown, 08/23/20) Celecoxib (Verified Adverse Reaction, Severe, WEAKNESS, 04/05/11) Home Meds Active Scripts Clindamycin Hcl (CLEOCIN) 150 Mg Cap, 1 CAP PO QID for 3 Days, #40 CAP Prov:SHELBI GUEVARA RESIDENT 05/21/24 Reported Medications Metformin Hydrochloride (Metformin Hcl) 500 Mg Tab, 1 TAB PO DAILY for 90 Days, #90 05/13/24 Mupirocin (Pseudomonas Fluores (Mupirocin) 2 % Oin, 2 % EX UD for 30 Days, #22 05/13/24 Amlodipine Besylate (Amlodipine Besylate) 10 Mg Tab, 1 TAB PO DAILY for 90 Days, #90 05/13/24 Ferrous Sulfate (Ferosul) 325 Mg Tab, 1 TAB PO BID for 30 Days, #60 03/19/24 Glipizide (Glipizide) 5 Mg Tab, 5 MG PO BIDAC for 30 Days, MG 03/19/24 Atorvastatin Calcium (Lipitor) 20 Mg Tab, 1 TAB PO DAILY for 90 Days, #90 03/19/24 Furosemide (Furosemide) 40 Mg Tab, 1 TAB PO BID for 30 Days, #60 03/19/24 Allopurinol (Allopurinol) 100 Mg Tab, 100 MG PO TID for 30 Days, MG 03/19/24 Losartan Potassium (Losartan Potassium) 50 Mg Tab, 1 TAB PO DAILY for 90 Days, #90 03/19/24 Linagliptin Base (TRADJENTA) 5 Mg Tab, 1 TAB PO DAILY for 90 Days, #90 10/06/20 Information Source: Emergency Med Personnel Mode of Arrival: EMS Timing: Came on: Suddenly Duration: Down time prior EMS: (5 minutes) Onset: Witnessed Available Hx: Other (ESRD, HTN, DM, CHF) Inital rhythm: Asystole Treatment: CPR, Epinephrine Response: Sustained return of pulse Associated signs and symptoms: None Past Medical History PAST MEDICAL HISTORY: Anemia, CHF, CKF, Dementia, DM, ESRD, High Lipids, HTN Surgical History: Cholecystectomy, Hernia Repair CHANGE MANAGEMENT History: Denies all CHANGE MANAGEMENT Hx Family History Family History: Reviewed,noncontributory to illness Social History Smoker: Non-Smoker Alcohol: Denies ETOH Use Drugs: Denies Drug Use Lives In: Home Constitutional: denies: chills, diaphoresis, fatigue, fever, malaise, sweats, weakness, others EENTM: denies: blurred vision, double vision, ear bleeding, ear discharge, ear drainage, ear pain, ear ringing, eye pain, eye redness, hearing loss, mouth pain, mouth swelling, nasal discharge, nose bleeding, nose congestion, nose pain, photophobia, tearing, throat pain, throat swelling, voice changes, others Respiratory: denies: cough, hemoptysis, orthopnea, SOB at rest, shortness of breath, SOB with excertion, stridor, wheezing, others Cardiovascular: denies: chest pain, dizzy spells, diaphoresis, Dyspnea on exertion, edema, irregular heart beat, left arm pain, lightheadedness, palpitations, PND, syncope, others Gastrointestinal: denies: abdomen distended, abdominal pain, blood streaked bowels, constipated, diarrhea, dysphagia, difficulty swallowing, hematemesis, melena, nausea, poor appetite, poor fluid intake, rectal bleeding, rectal pain, vomiting, others Genitourinary: denies: abnormal vagina bleeding, burning, dyspareunia, dysuria, flank pain, frequency, hematuria, incontinence, pain, , vagina discharge, urgency, others Neurological: denies: dizziness, fainting, headache, left sided numbness, left sided weakness, numbness, paresthesia, pre-existing deficit, right sided numbness, right sided weakness, seizure, speech problems, tingling, tremors, weakness, others Musculoskeletal: denies: back pain, gout, joint pain, joint swelling, muscle pain, muscle stiffness, neck pain, others Integumetry: denies: bruises, change in color, change in hair/nails, dryness, laceration, lesions, lumps, rash, wounds, others Allergic/Immunocompromised: denies: Difficulty Healing, Frequent Infections, Hives, Itching, others Hematologic/Lymphatic: denies: anemia, blood clots, easy bleeding, easy bruising, swollen glands, others Endocrine: denies: excessive hunger, excessive sweating, excessive thirst, excessive urination, flushing, intolerance to cold, intolerance to heat, unexplained weight gain, unexplained weight loss, others Psychiatric: denies: anxiety, bipolar disorder, depression, hopeless, panic disorder, schizophrenia, sleepless, suicidal, others Unable to Obtain due to: Medical Urgency All Other Systems: Reviewed and Negative Physical Exam Exam Comments CPR actively occurring General Appearance: Severe Distress HEENT: NOT DONE Neck: NOT DONE Respiratory: Other (Patient not breathing) Cardiovascular: Other (No pulses) Breast Exam: Deferred Gastrointestinal: NOT DONE Genitalia: Deferred Pelvic: Deferred Rectal: Deferred Extremities: NOT DONE Neurologic: Other (Patient unarousable) Cerebellar Function: NOT DONE Reflexes: NOT DONE Skin: Pallor Lymphatic: NOT DONE Was a procedure done? Was a procedure done?: Yes Sedation Sedation?: No Intubation Indication: Airway Protection Prep: No Preoxygenation Pretreated with: Nothing Medicated with: Nothing Intubation Approach: Orotracheal Intubation size: cm (8 ETT 24 cm at the lip) Informed consent obtained: No Risks/benefits/alt described: No Differential Dx CPR Differential Diagnosis: Cardiopulmonary arrest, Cardiogenic shock, Dysrhythmia, Electrolyte disorder, Heart Block, Myocardial Infarction, Pulmonary Embolus, Respiratory Failure X-Ray, Labs, Meds, VS Vital Signs Date Time Temp Pulse Resp B/P (MAP) Pulse Ox O2 Delivery O2 Flow Rate FiO2 06/08/24 12:59 0 0 0/0 (0) 0 06/08/24 12:51 56 10 43/20 06/08/24 12:45 56 11 71/34 (46) 39 06/08/24 12:30 65 18 67/35 (46) 100 06/08/24 12:15 63 18 68/35 (46) 100 06/08/24 12:00 65 18 68/35 (46) 100 06/08/24 11:45 66 18 73/37 (49) 100 06/08/24 11:30 67 18 69/39 (49) 100 06/08/24 11:15 71 18 74/39 (51) 100 06/08/24 11:00 75 18 75/39 (51) 100 06/08/24 10:58 74 18 Mechanical Ventilator+ 100 100 06/08/24 10:45 81 18 79/38 (52) 100 06/08/24 10:40 81 18 76/38 (51) 100 06/08/24 10:35 71 18 69/33 (45) 100 06/08/24 10:30 74 18 81/39 (53) 100 06/08/24 10:30 82 Ambu-Bag 06/08/24 10:25 77 18 81/39 (53) 100 06/08/24 10:20 80 18 100/49 (66) 100 06/08/24 10:14 74 18 145/58 (87) 100 100 06/08/24 10:03 85 06/08/24 10:03 89 18 145/58 (87) 92 06/08/24 09:55 93.6 Lab Test 06/08/24 11:49 06/08/24 11:11 06/08/24 09:51 Range/Units Lactic Acid Level 6.1 *H 6.8 *H 0.4-2.0 mmol/L Troponin I High Sensitivity 40 *H 34 </=34 ng/L White Blood Count 7.9 4.4-10.8 10^3/uL Red Blood Count 4.20 4.0-5.20 10^6/uL Hemoglobin 11.8 L 12.2-16.2 g/dL Hematocrit 39.6 36.0-46.0 % Mean Corpuscular Volume 94.3 80.0-100.0 fL Mean Corpuscular Hemoglobin 28.1 28.0-32.0 pg Mean Corpuscular Hemoglobin Concent 29.8 L 32.0-36.0 g/dL Red Cell Distribution Width 21.9 H 11.8-14.3 % Platelet Count 122 L 140-450 10^3/uL Mean Platelet Volume 8.4 6.9-10.8 fL Neutrophils (%) (Auto) 41.2 37.0-80.0 % Lymphocytes (%) (Auto) 54.2 H 10.0-50.0 % Monocytes (%) (Auto) 3.4 0.0-12.0 % Eosinophils (%) (Auto) 0.4 0.0-7.0 % Basophils (%) (Auto) 0.8 0.0-2.0 % Neutrophils # (Auto) 3.2 1.6-8.6 10 ^3/uL Lymphocytes # (Auto) 4.3 0.4-5.4 10 ^3/uL Monocytes # (Auto) 0.3 0-1.3 10 ^3/uL Eosinophils # (Auto) 0 0-0.8 10 ^3/uL Basophils # (Auto) 0.1 0-0.2 10 ^3/uL Nucleated Red Blood Cells 2.1 % Platelet Estimate Decreased Anisocytosis (manual) Slight Macrocytosis Slight Prothrombin Time 12.8 H 9.3-11.8 sec Prothrombin Time INR 1.23 H 0.9-1.15 Activated Partial Thromboplast Time 39.5 H 24.5-34.5 SEC Sodium Level 136 136-145 mmol/L Potassium Level 4.5 3.5-5.1 mmol/L Chloride Level 100 98-107 mmol/L Carbon Dioxide Level 27 20-31 mmol/L Anion Gap 9 5-15 Blood Urea Nitrogen 13 9-23 mg/dL Creatinine 2.31 H 0.550-1.02 mg/dL Glomerular Filtration Rate Calc 20 >90 mL/min BUN/Creatinine Ratio 5.6 L 10.0-20.0 Serum Glucose 150 H 74-106 mg/dL Calcium Level 9.8 8.7-10.4 mg/dL Magnesium Level 2.4 1.6-2.6 mg/dL Total Bilirubin 0.4 0.2-1.0 mg/dL Aspartate Amino Transferase (AST) 280 H 13-40 U/L Alanine Aminotransferase (ALT) 140 H 7-40 U/L Alkaline Phosphatase 246 H 46-116 U/L Total Protein 6.4 5.7-8.2 g/dL Albumin 3.8 3.2-4.8 g/dL Current Medications Medications (Trade) Dose Ordered Sig/Francoise Route Start Time Stop Time Status Last Admin Morphine Sulfate 4 mg [id number] PRN IV 06/08/24 12:45 06/08/24 12:51 PATIENT: JEET LIACCT: [id number]: [id number] : 1935 LOC: ER ROOM / BED: / AGE / SEX: 89 / F ADM STATUS: REG ER SERVICE 1008 ORDERING PHYSICIAN: HEATH DALTON MD PROCEDURE(s): CXRP - CHEST PORTABLE REASON: sp intubation ORDER NUMBER(s): [id number], ACCESSION NUMBER(s): [id number] EXAM: XR Chest, 1 View CLINICAL INDICATION: sp intubation TECHNIQUE: Frontal view of the chest. COMPARISON: XY CHEST XRAY 1 VIEW on DOS: 05/15/24, XY CHEST PORTABLE on DOS: 05/12/24, XY CHEST XRAY 1 VIEW on DOS: 03/21/24, XY CHEST PORTABLE on DOS: 03/21/24, XY CHEST XRAY 1 VIEW on DOS: 03/19/24 FINDINGS: LUNGS AND PLEURAL SPACES: Moderate CHF. Superimposed pneumonia can not be excluded. No pneumothorax. HEART: Unremarkable. No cardiomegaly. MEDIASTINUM: Unremarkable. Normal mediastinal contour. BONES/JOINTS: Unremarkable. No acute fracture. TUBES, LINES AND DEVICES: The endotracheal tube (ETT) is in satisfactory position. Right internal jugular central venous catheter tip in the superior vena cava. Enteric tube tip in the stomach. OTHER FINDINGS: . IMPRESSION: Moderate CHF. Superimposed pneumonia can not be excluded. ATED BY: SUSANNA HAQ MD DICTATED DATE/TIME: 06/08/24 1033 SIGNED BY: SUSANNA HAQ MD SIGNED DATE/TIME: 06/08/24 1033 89-year-old female presents here status post cardiac arrest. Patient was speaking to family when she suddenly collapsed. 911 was called and chest compressions were started. Patient was found to be in asystole in the field. She was given epinephrine x2 in the field. eld and also 1 g of calcium chloride. She Continue to remain in asystole. Upon her arrival chest compressions were immediately continued, pulse checks were done every 2 minutes, and epinephrine was given every 2-4 minutes IV. Please see nursing notes for full details. Rhythm checks every 2 minutes in our emergency room demonstrate PEA. Patient was intubated by myself please see procedure note. Shortly after intubation, ROSC was achieved. Patient had appropriate blood pressure and what appeared to be in sinus rhythm. Blood work was then done. Although family was not initially at bedside, few minutes later family arrived. I spoke to 2 of her children. Patient is a . At that time I explained to them options for withdrawing care as they had mentioned to EMS they would like to stop further intervention. They did not want me to give vasopressors. At that time they advised they would speak to other family members as they were total of 9 siblings. During this time, I have evaluated the patient multiple times. Patient's blood pressure continued to steadily dropped. She was on a ventilator. We attempted to get an ABG but warned successful. Ultimately several hours later her blood pressure continued to drop and a had a family meeting with the proximally 20 individuals from her family including most all of her children. We discussed treatment options including pressor support, taking her off of ventilator, her life expectancy after taking off the ventilator, options for making her comfortable. Ultimately universally they decided they no longer want to 2 continue with artificial interventions. Decision was made to pull the ET tube. Ultimately EP to 2 was not pull it of the time we were waiting for additional family to arrive. After family arrived the ET tube was pulled. I monitored the patient very closely as did my staff. Patient was given morphine and propofol for comfort during this time. I have her ET tube was removed, patient ultimately became asystolic at 1259 with time of at 12:59 p.m.. All family at bedside. Family very appreciative of our care. Time of 1ST Reevaluation: 10:23 Reevaluation 1ST: Unchanged Time of 2ND Reevaluation: 12:59 Reevaluation 2ND: Worsened Patient Education/Counseling: Pt Unresponsive Family Education/Counseling: Diagnosis, Treatment, Prognosis Departure 1 Departure Time of Disposition: 12:59 Impression: Primary Impression: Cardiac arrest Disposition: 20 Admit to: Condition: Other Discharged With: Relative Critical Care Note Critical Care Time?: Yes (150 min excluding procedures) Critical care comment: Patient was immediately seen upon arrival to the ER by myself. Prior to arrival preparation was made for intubation and CPR. Time included multiple re- evaluation of the patient, time speaking to family, directing her care, reviewing lab results, time spent at bedside, calling patient's . Heart Score Heart Score: Heart Score Response (Comments) Value History N/A 0 EKG N/A 0 Age N/A 0 Risk Factors N/A 0 Troponin N/A 0 Total 0 Stability Stability form required: No I personally scribed for HEATH DALTON MD ([email or web address]) on 06/08/24 at 10:13. Electronically submitted by Aaron Schmidt ([email or web address]). I personally scribed for HEATH DALTON MD ([email or web address]) on 06/08/24 at 10:55. Electronically submitted by Aaron Schmidt ([email or web address]). HEATH DALTON MD Jun 08, 2024 10:13
--- NOTE | 2024-06-08 10:30 | RESUS ---
CODE DAVID ASSESSSMENT History of Events History of Events: SECURED CODE DAVID ARRIVED AT 0954 WITH LEFT I/O TO TIBIA, AUTOMATIC COMPRESSION DEVICE WITH 2 ROUNDS EPINEPHRINE, 1 HCO3 AND 1 CALCIUM ALREADY GIVEN PER EMS. Initial Information Date: Jun 08, 2024 Time: 09:54 Location of Arrest: In Field Arrest Witnessed: Yes CPR started by whom: EMS (FAMILY CALLED 911, WHEN EMS ARRIVED SHE WAS IN ASYSTOLE) Pre-Hospital Care: ACLS Type of arrest: Cardiac, Adult, Witnessed Spontaneous Respirations: No Pulse Present: No Monitoring: ECG, Pulse Oximetry Crash Cart Opened and Supplies: Yes Airway Ventilation Breathing at Onset: Assisted Oxygen Delivery Method: Ambu-Bag Artificial Ventilation: Bag/Mask Intubation Time: 09:59 Intubation Size: 8.0 cuffed Intubated by: DR DALTON Intubated orally: Yes Tube secured at: 24 CO2 indicator used: Yes Confirmation: Auscultation, Exhaled CO2 Circulation Circulation #1: Time: 09:56 Pulse Rate (adult): 0 Blood Pressure Systolic: 0 Blood Pressure Diastolic: 0 Circulation Comment: PEA Circulation #2: Time: 09:58 Pulse Rate (adult): 0 Blood Pressure Systolic: 0 Blood Pressure Diastolic: 0 Circulation Comment: PEA Circulation #3: Time: 10:00 Pulse Rate (adult): 0 Blood Pressure Systolic: 0 Blood Pressure Diastolic: 0 Circulation Comment: PEA Circulation #4: Time: 10:02 Pulse Rate (adult): 82 Blood Pressure Systolic: 145 Blood Pressure Diastolic: 58 Circulation Comment: SPO2 89-90% Defibrillation Defbrillation : Time Defibrillator Applied: 09:54 Compressions: Device (SWITCHED TO MANUAL COMPRESSIONS AT 1000) Procedure - IV Procedure - IV : IV Side: Left IV Location: Forearm Anterior IV Catheter Type: Peripheral IV IV Placed: RN (AR MENDES) IV Gauge: 20 IV Line Care: Saline Flush Procedure - Intraosseous Site of Intraosseous: Tibia paolo-medial (LEFT) Intraosseous inserted by: EMS PRIOR TO ARRIVAL Medications & Response Medications and Responses #1: Medication Time: 09:56 ADULT Medications Given ADULT: Epinephrine 1 mg Route of Administration: IO Medications and Responses #2: Medication Time: 10:00 ADULT Medications Given ADULT: Epinephrine 1 mg Route of Administration: IV Nurses Notes [place] Coma Scale Eye Opening: None (1) [place] Coma Scale Verbal: None (1) [place] Coma Scale Motor: None (1) Pupil Reaction: Non Reactive Bedside Blood Glucose: 152 Nurses Notes - Comment: Time Code Ended Time Code Ended: 10:02 Post Arrest Status: Ventilated Outcome of code: Successful Family notified: Yes (ON WAY TO HOSPITAL) Code Team Present: DRAKE PETERS SPRING COILER HAND, ERIC KYLE CHARGE, AR [place] RN, ARACELI RN, PAVEL MATIAS, KEELY REID RN BROKERAGE CLERK, AGUSTIN RT, LORIE RT, JHONATHAN RT ROSC Time of ROSC: 10:02 Drake Wolf Jun 08, 2024 10:30
[2024-06-08 10:35] LABS: Basophils # (auto) 0.1 10 ^3/uL (0-0.2); Eosinophils # (auto) 0 10 ^3/uL (0-0.8); Eosinophils % (auto) 0.4 % (0.0-7.0); Lymphocytes # (auto) 4.3 10 ^3/uL (0.4-5.4); Monocytes # (auto) 0.3 10 ^3/uL (0-1.3); Platelet Count (auto) 122 10^3/uL (140-450)
--- NOTE | 2024-06-08 10:35 | DVH ---
EXAM: XR Chest, 1 View CLINICAL INDICATION: sp intubation TECHNIQUE: Frontal view of the chest. COMPARISON: XY CHEST XRAY 1 VIEW on DOS: 05/15/24, XY CHEST PORTABLE on DOS: 05/12/24, XY CHEST XRAY 1 VIEW on DOS: 03/21/24, XY CHEST PORTABLE on DOS: 03/21/24, XY CHEST XRAY 1 VIEW on DOS: 03/19/24 FINDINGS: LUNGS AND PLEURAL SPACES: Moderate CHF. Superimposed pneumonia can not be excluded. No pneumothora x. HEART: Unremarkable. No cardiomegaly. MEDIASTINUM: Unremarkable. Normal mediastinal contour. BONES/JOINTS: Unremarkable. No acute fracture. TUBES, LINES AND DEVICES: The endotracheal tube (ETT) is in satisfactory position. Right internal j ugular central venous catheter tip in the superior vena cava. Enteric tube tip in the stomach. OTHER FINDINGS: . IMPRESSION: Moderate CHF. Superimposed pneumonia can not be excluded.
[2024-06-08 10:38] LABS: Basophils % (auto) 0.8 % (0.0-2.0); Hematocrit 39.6 % (36.0-46.0); Hemoglobin 11.8 g/dL (12.2-16.2); Lymphocytes % (auto) 54.2 % (10.0-50.0); Mean Corpuscular Hemoglobin 28.1 pg (28.0-32.0); Mean Corpuscular Hgb Conc. 29.8 g/dL (32.0-36.0); Mean Corpuscular Volume 94.3 fL (80.0-100.0); Monocytes % (auto) 3.4 % (0.0-12.0); Neutrophils # (auto) 3.2 10 ^3/uL (1.6-8.6); Neutrophils % (auto) 41.2 % (37.0-80.0); Nucleated Red Blood Cells % 2.1 %; White Blood Cell 7.9 10^3/uL (4.4-10.8)
[2024-06-08 10:49] LABS: Red Cell Distribution Width 21.9 % (11.8-14.3)
[2024-06-08 10:56] LABS: Albumin 3.8 g/dL (3.2-4.8); Anion Gap 9 (5-15); BUN/Creatinine Ratio 5.6 (10.0-20.0); Blood Urea Nitrogen 13 mg/dL (9-23); Calcium 9.8 mg/dL (8.7-10.4); Carbon Dioxide 27 mmol/L (20-31); Chloride 100 mmol/L (98-107); Magnesium 2.4 mg/dL (1.6-2.6); Potassium 4.5 mmol/L (3.5-5.1); Sodium 136 mmol/L (136-145)
[2024-06-08 10:57] LABS: Bilirubin, Total 0.4 mg/dL (0.2-1.0); Total Protein 6.4 g/dL (5.7-8.2)
[2024-06-08 10:58] VITALS: PULSE 74; RESP 18
[2024-06-08 11:02] LABS: INR 1.23 (0.9-1.15); Partial Thromboplastin Time 39.5 SEC (24.5-34.5); Prothrombin Time 12.8 sec (9.3-11.8)
[2024-06-08 11:13] LABS: Glucose 150 mg/dL (74-106)
[2024-06-08 11:14] LABS: Alanine Aminotransferase 140 U/L (7-40); Alkaline Phosphatase 246 U/L (46-116); Aspartate Aminotransferase 280 U/L (13-40)
[2024-06-08 11:17] LABS: Lactic Acid w/Reflex 6.8 mmol/L (0.4-2.0)
[2024-06-08 11:30] LABS: Anisocytosis Slight; Macrocytosis Slight; Platelet Estimate Decreased
[2024-06-08] MEDS: MORPHINE SULFATE 4 MG/ML SYR/VIAL IV PRN (12:51)
[2024-06-08 12:59] VITALS: BP 0/0; PULSE 0; RESP 0; O2SAT 0
[2024-06-08] MEDS: PROPOFOL 100 ML IV SCH (13:00)
[2024-06-09] MEDS ORDERED: LORazepam 2MG/ML-1ML VIAL IV ONE (10:00)
== END 2024-06-08 13:12 ==
LOC: ER 09:55 → EDSEX 09:55 → EDBD 09:55 → ER 13:12
DX: I46.9 Cardiac arrest, cause unspecified (principal); E78.5 Hyperlipidemia, unspecified; I13.2 Hypertensive heart and chronic kidney disease with heart failure and with stage 5 chronic kidney disease, or end stage renal disease; E11.22 Type 2 diabetes mellitus with diabetic chronic kidney disease; N18.6 End stage renal disease; I50.89 Other heart failure; Z90.49 Acquired absence of other specified parts of digestive tract; Z90.89 Acquired absence of other organs; Z88.6 Allergy status to analgesic agent; Z79.899 Other long term (current) drug therapy
CPT/HCPCS: 31500; 36415; 36600; 71045; 80053; 82805; 83605; 83735; 84484; 85025; 85610; 85730; 87040; 87070; 87077; 87186; 87205; 92950; 96374; 99291; 99292; J2270; J2704